=== PATIENT | male | born 1945 | race Caucasian/White ===

== ENCOUNTER 2017-05-12 08:03 | Inpatient (IN) | payer MEDICARE ==
[~2017-05-12] VITALS: Ht 6206.4 cm; Wt 96.8 kg
[~2017-05-12 08:03] MED LIST: ACET-1131 PO; ALB0.5UD IH; ALBU18HF2 INH; ALBU8.5H8 IH; AMLO10TA PO; ARFO15VI3 NEB; ASPI-611 PO; ATR0.5NEB IH; BUDE0.5A11 NEB; CEPH500C5 PO; CHOL2000 PO; DOCU-28 PO; GUAI600T45 PO; LACT10SO PO; LOSA50TA37 PO; MONT10TA21 PO; NITR0.4T48 SL; PANT40TA4 PO; PRED50TA PO
[2017-05-12] MEDS ORDERED: methylPREDNISolone sod succ 125mg/2ml vial IV ONE (08:15)
[2017-05-12] MEDS ORDERED: magnesium 2GM in 50ml NS 50 ML IV ONE (08:15)
[2017-05-12] MEDS ORDERED: normal saline 1000ML IV soln IVB ONE (08:15)
[2017-05-12] MEDS ORDERED: albuterol 2.5 MG/3 ML nebule CONTNEB PRN (08:15)
[2017-05-12 08:27] LABS: BASOPHILS # (AUTO) 0.1 X10'3 (0-0.2); BASOPHILS % (AUTO) 0.7 % (0-1); EOSINOPHILS # (AUTO) 0.6 X10'3 (0-0.9); EOSINOPHILS % (AUTO) 6.1 % (0-6); HEMATOCRIT 38.3 % (42.0-52.0); HEMOGLOBIN 12.7 g/dl (14.0-17.9); LYMPHOCYTES # (AUTO) 1.3 X10'3 (1.1-4.8); LYMPHOCYTES % (AUTO) 13.7 % (21-51); MEAN CORPUSCULAR HEMOGLOBIN 27.9 PG (27.0-31.0); MEAN CORPUSCULAR HGB CONC 33.3 % (33.0-36.5); MEAN CORPUSCULAR VOLUME 83.8 FL (78-98); MONOCYTES % (AUTO) 9.8 % (2-12); NEUTROPHILS # (AUTO) 6.8 X10'3 (1.8-7.7); NEUTROPHILS % (AUTO) 69.7 % (42-75); PLATELET COUNT 341 X10'3 (140-440); RED BLOOD COUNT 4.57 X10'6 (4.70-6.10); RED CELL DISTRIBUTION WIDTH 16.8 % (11.5-14.5); WHITE BLOOD COUNT 9.8 X10'3 (4.5-11.0)
[2017-05-12 08:37] LABS: PARTIAL THROMBOPLASTIN TIME 30 SECONDS (22-32); PROTHROMBIN TIME 9.9 SECONDS (9.0-12.0)
[2017-05-12 08:42] LABS: ALANINE AMINOTRANSFERASE 23 U/L (12-78); ALBUMIN 2.8 G/DL (3.4-5.0); ALBUMIN/GLOBULIN RATIO 0.6 (1.1-1.5); ALKALINE PHOSPHATASE 108 IU/L (46-116); ANION GAP 10 (8-16); ASPARTATE AMINO TRANSFERASE 17 U/L (10-37); BILIRUBIN,TOTAL 0.4 MG/DL (0.1-1.0); BLOOD UREA NITROGEN 12 MG/DL (7-18); BUN/CREATININE RATIO 8.6 (5.4-32.0); CALCIUM 9.2 MG/DL (8.5-10.1); CHLORIDE 107 MMOL/L (99-107); CREATININE 1.39 MG/DL (0.60-1.10); GLUCOSE 100 MG/DL (70-104); POTASSIUM 4.4 MMOL/L (3.5-5.1); SODIUM 142 MMOL/L (135-145); TOTAL CARBON DIOXIDE 24.7 MMOL/L (24-32); TOTAL PROTEIN 7.3 G/DL (6.4-8.2); eGFR 50 ML/MIN
[2017-05-12 09:05] LABS: ABG BASE EXCESS -2.3 mmol/L (-2.0-3.0); ABG HCO3 21.2 mmol/L (22.0-26.0); ABG OXYGEN SATURATION 93.2 % (95-98); ABG PCO2 (T) 32.1 mmHg (35.0-48.0); ABG PH (T) 7.438 (7.350-7.450); ABG PO2 (T) 67.2 mmHg (83-108); ALLEN'S TEST Positive; FCOHb 1.1 % (0.5-1.5); FMetHb 0.3 % (0.3-1.12); FO2Hb 91.9 % (94-100); TOTAL HEMOGLOBIN 10.2 G/dl (14.0-18.0)
[2017-05-12] MEDS ORDERED: furosemide 10 MG/1 ML 10ml inj IV ONE (10:05)
[2017-05-12] MEDS ORDERED: magnesium 2GM in 50ml NS 50 ML IV PRN (11:10)
[2017-05-12] MEDS ORDERED: mag hydrox/Alum hydrox/simeth 30ml oral suspension PO PRN (11:10)
[2017-05-12] MEDS ORDERED: magnesium 4gm in 100ml NS 100 ML IV PRN (11:10)
[2017-05-12] MEDS ORDERED: ondansetron/PF 4mg/2ml inj IV PRN (11:10)
[2017-05-12] MEDS ORDERED: potassium Cl 20 mEq SR tablet PO PRN ×2 (11:10)
[2017-05-12] MEDS ORDERED: acetaminophen 325mg tablet PO PRN (11:10)
[2017-05-12] MEDS ORDERED: magnesium Cl slow-release 64mg tablet PO PRN (11:10)
[2017-05-12] MEDS ORDERED: potassium Cl 40MEQ/NS 500ml 500 ML IV PRN ×2 (11:10)
[2017-05-12] MEDS ORDERED: magnesium hydroxide 30ml (MOM) UD suspension PO PRN (11:10)
[2017-05-12] MEDS ORDERED: ALPRAZolam 0.25mg tablet PO PRN (11:15)
[2017-05-12] MEDS ORDERED: iohexol 350MG/ML 100ml bottle IV ONE (11:43)
[2017-05-12] MEDS: normal saline 1000ml 1,000 ML IV SCH (11:49)
[2017-05-12 17:51] VITALS: BP 157/92
[2017-05-12] MEDS: albuterol 2.5 MG/3 ML nebule NEB PRN (19:32)
[2017-05-12 20:00] VITALS: BP 167/90
[2017-05-12] MEDS ORDERED: temazepam 15mg capsule PO PRN (21:00)
[2017-05-12] MEDS: heparin, porcine 5000 units/ml vial SQ SCH (21:51)
[2017-05-13] VITALS: BP 153/75
[2017-05-13 06:12] LABS: BASOPHILS % (AUTO) 0.1 % (0-1); EOSINOPHILS # (AUTO) 0.2 X10'3 (0-0.9); EOSINOPHILS % (AUTO) 1.5 % (0-6); HEMATOCRIT 36.2 % (42.0-52.0); HEMOGLOBIN 11.9 g/dl (14.0-17.9); LYMPHOCYTES # (AUTO) 0.6 X10'3 (1.1-4.8); LYMPHOCYTES % (AUTO) 5.9 % (21-51); MEAN PLATELET VOLUME 8.6 FL (7.4-10.4); MONOCYTES # (AUTO) 0.6 X10'3 (0-0.9); MONOCYTES % (AUTO) 5.9 % (2-12); NEUTROPHILS # (AUTO) 9.3 X10'3 (1.8-7.7); NEUTROPHILS % (AUTO) 86.6 % (42-75); PLATELET COUNT 334 X10'3 (140-440); RED BLOOD COUNT 4.26 X10'6 (4.70-6.10); RED CELL DISTRIBUTION WIDTH 16.2 % (11.5-14.5); WHITE BLOOD COUNT 10.7 X10'3 (4.5-11.0)
[2017-05-13 06:30] LABS: ALANINE AMINOTRANSFERASE 24 U/L (12-78); ALBUMIN 2.7 G/DL (3.4-5.0); ALBUMIN/GLOBULIN RATIO 0.6 (1.1-1.5); ALKALINE PHOSPHATASE 100 IU/L (46-116); ANION GAP 10 (8-16); ASPARTATE AMINO TRANSFERASE 18 U/L (10-37); BILIRUBIN,TOTAL 0.2 MG/DL (0.1-1.0); BLOOD UREA NITROGEN 30 MG/DL (7-18); BUN/CREATININE RATIO 22.9 (5.4-32.0); CALCIUM 9.3 MG/DL (8.5-10.1); CHLORIDE 102 MMOL/L (99-107); CREATININE 1.31 MG/DL (0.60-1.10); GLUCOSE 130 MG/DL (70-104); MAGNESIUM 2.5 MG/DL (1.5-2.4); POTASSIUM 4.6 MMOL/L (3.5-5.1); SODIUM 138 MMOL/L (135-145); TOTAL CARBON DIOXIDE 26.5 MMOL/L (24-32); eGFR 54 ML/MIN
[2017-05-13] MEDS: albuterol 2.5 MG/3 ML nebule NEB PRN ×3 (06:57→14:39)
[2017-05-13 07:21] VITALS: BP 162/84
[2017-05-13] MEDS: K and/or MAG REPLACEMENT MC SCH (07:48)
[2017-05-13] MEDS: cefTRIAXone 1g/NS 100ml IVPB 100 ML IV SCH (08:00)
[2017-05-13] MEDS ORDERED: methylPREDNISolone sod succ/PF 40mg inj. IV SCH (08:00)
[2017-05-13] MEDS: heparin, porcine 5000 units/ml vial SQ SCH ×2 (08:02→21:00)
[2017-05-13] MEDS: amLODIPine 5mg tablet PO SCH (08:02)
[2017-05-13] MEDS: pantoprazole 40mg Tablet.DR PO SCH (08:02)
[2017-05-13] MEDS: lactobacillus rhamnosus 10,000 MMU CELLS/CAPSULE PO SCH ×2 (08:02→17:22)
[2017-05-13] MEDS: aspirin 81mg tab.chew PO SCH (08:03)
[2017-05-13] MEDS: montelukast 10mg tablet PO SCH (08:03)
[2017-05-13] MEDS: losartan 50mg tablet PO SCH (08:03)
[2017-05-13 12:00] VITALS: BP 147/79
[2017-05-13] MEDS: methylPREDNISolone sod succ/PF 40mg inj. IV SCH ×2 (14:39→21:00)
[2017-05-13] MEDS: normal saline 1000ml 1,000 ML IV SCH ×2 (17:13→22:38)
[2017-05-13 19:30] VITALS: BP 147/79
[2017-05-14] VITALS: BP 147/71
[2017-05-14 05:56] LABS: BASOPHILS % (AUTO) 0.1 % (0-1); EOSINOPHILS # (AUTO) 0.2 X10'3 (0-0.9); EOSINOPHILS % (AUTO) 1.3 % (0-6); HEMATOCRIT 35.7 % (42.0-52.0); HEMOGLOBIN 11.7 g/dl (14.0-17.9); LYMPHOCYTES # (AUTO) 0.5 X10'3 (1.1-4.8); LYMPHOCYTES % (AUTO) 4.1 % (21-51); MEAN CORPUSCULAR HEMOGLOBIN 27.9 PG (27.0-31.0); MEAN CORPUSCULAR HGB CONC 32.8 % (33.0-36.5); MEAN CORPUSCULAR VOLUME 84.9 FL (78-98); MEAN PLATELET VOLUME 8.8 FL (7.4-10.4); MONOCYTES # (AUTO) 0.4 X10'3 (0-0.9); MONOCYTES % (AUTO) 3.2 % (2-12); NEUTROPHILS # (AUTO) 11.5 X10'3 (1.8-7.7); NEUTROPHILS % (AUTO) 91.3 % (42-75); PLATELET COUNT 344 X10'3 (140-440); RED BLOOD COUNT 4.21 X10'6 (4.70-6.10); RED CELL DISTRIBUTION WIDTH 16.3 % (11.5-14.5); WHITE BLOOD COUNT 12.6 X10'3 (4.5-11.0)
[2017-05-14 06:10] LABS: ALANINE AMINOTRANSFERASE 25 U/L (12-78); ALBUMIN 2.7 G/DL (3.4-5.0); ALBUMIN/GLOBULIN RATIO 0.6 (1.1-1.5); ALKALINE PHOSPHATASE 91 IU/L (46-116); ANION GAP 10 (8-16); ASPARTATE AMINO TRANSFERASE 18 U/L (10-37); BILIRUBIN,TOTAL 0.2 MG/DL (0.1-1.0); BLOOD UREA NITROGEN 29 MG/DL (7-18); BUN/CREATININE RATIO 24.2 (5.4-32.0); CHLORIDE 108 MMOL/L (99-107); GLUCOSE 177 MG/DL (70-104); MAGNESIUM 2.4 MG/DL (1.5-2.4); POTASSIUM 4.9 MMOL/L (3.5-5.1); SODIUM 145 MMOL/L (135-145); TOTAL CARBON DIOXIDE 26.6 MMOL/L (24-32); TOTAL PROTEIN 6.9 G/DL (6.4-8.2); eGFR 59 ML/MIN
[2017-05-14] MEDS: cefTRIAXone 1g/NS 100ml IVPB 100 ML IV SCH (07:43)
[2017-05-14] MEDS: methylPREDNISolone sod succ/PF 40mg inj. IV SCH ×3 (07:43→20:38)
[2017-05-14] MEDS: lactobacillus rhamnosus 10,000 MMU CELLS/CAPSULE PO SCH ×2 (07:43→17:31)
[2017-05-14] MEDS: aspirin 81mg tab.chew PO SCH (07:44)
[2017-05-14] MEDS: losartan 50mg tablet PO SCH (07:44)
[2017-05-14] MEDS: amLODIPine 5mg tablet PO SCH (07:45)
[2017-05-14] MEDS: pantoprazole 40mg Tablet.DR PO SCH (07:45)
[2017-05-14] MEDS: montelukast 10mg tablet PO SCH (07:46)
[2017-05-14] MEDS: heparin, porcine 5000 units/ml vial SQ SCH ×2 (07:46→20:38)
[2017-05-14] MEDS: normal saline 1000ml 1,000 ML IV SCH ×2 (07:47→17:32)
[2017-05-14 08:00] VITALS: BP 157/91
[2017-05-14] MEDS: K and/or MAG REPLACEMENT MC SCH (08:00)
[2017-05-14] MEDS: albuterol 2.5 MG/3 ML nebule NEB PRN (08:17)
[2017-05-14 12:00] VITALS: BP 149/81
[2017-05-14] MEDS ORDERED: albuterol 2.5 MG/3 ML nebule NEB SCH (18:35)
[2017-05-14] MEDS ORDERED: acetaminophen 325mg tablet PO PRN (18:40)
[2017-05-14 19:30] VITALS: BP 177/101
[2017-05-15] VITALS: BP 151/83
[2017-05-15] MEDS: normal saline 1000ml 1,000 ML IV SCH ×2 (03:48→19:13)
[2017-05-15 04:58] LABS: BASOPHILS % (AUTO) 0 % (0-1); EOSINOPHILS # (AUTO) 0.2 X10'3 (0-0.9); EOSINOPHILS % (AUTO) 1.3 % (0-6); HEMATOCRIT 35.5 % (42.0-52.0); HEMOGLOBIN 11.7 g/dl (14.0-17.9); LYMPHOCYTES # (AUTO) 0.5 X10'3 (1.1-4.8); LYMPHOCYTES % (AUTO) 3.7 % (21-51); MEAN CORPUSCULAR HEMOGLOBIN 27.9 PG (27.0-31.0); MEAN CORPUSCULAR HGB CONC 32.8 % (33.0-36.5); MEAN CORPUSCULAR VOLUME 84.9 FL (78-98); MEAN PLATELET VOLUME 8.8 FL (7.4-10.4); MONOCYTES # (AUTO) 0.5 X10'3 (0-0.9); MONOCYTES % (AUTO) 3.4 % (2-12); NEUTROPHILS # (AUTO) 12.4 X10'3 (1.8-7.7); NEUTROPHILS % (AUTO) 91.6 % (42-75); PLATELET COUNT 319 X10'3 (140-440); RED BLOOD COUNT 4.18 X10'6 (4.70-6.10); RED CELL DISTRIBUTION WIDTH 16.2 % (11.5-14.5); WHITE BLOOD COUNT 13.5 X10'3 (4.5-11.0)
[2017-05-15 05:19] LABS: ALANINE AMINOTRANSFERASE 29 U/L (12-78); ALBUMIN 2.6 G/DL (3.4-5.0); ALBUMIN/GLOBULIN RATIO 0.7 (1.1-1.5); ALKALINE PHOSPHATASE 84 IU/L (46-116); ANION GAP 13 (8-16); ASPARTATE AMINO TRANSFERASE 17 U/L (10-37); BILIRUBIN,TOTAL 0.2 MG/DL (0.1-1.0); BLOOD UREA NITROGEN 34 MG/DL (7-18); BUN/CREATININE RATIO 32.1 (5.4-32.0); CALCIUM 8.9 MG/DL (8.5-10.1); CHLORIDE 106 MMOL/L (99-107); CREATININE 1.06 MG/DL (0.60-1.10); GLUCOSE 131 MG/DL (70-104); MAGNESIUM 2.3 MG/DL (1.5-2.4); POTASSIUM 4.4 MMOL/L (3.5-5.1); SODIUM 142 MMOL/L (135-145); TOTAL CARBON DIOXIDE 23.4 MMOL/L (24-32); TOTAL PROTEIN 6.6 G/DL (6.4-8.2); eGFR 68 ML/MIN
[2017-05-15 07:00] VITALS: BP 183/104
[2017-05-15] MEDS: K and/or MAG REPLACEMENT MC SCH (07:35)
[2017-05-15] MEDS: lactobacillus rhamnosus 10,000 MMU CELLS/CAPSULE PO SCH ×2 (07:36→17:54)
[2017-05-15] MEDS: HYDROchlorothiazide 12.5mg capsule PO SCH (07:36)
[2017-05-15] MEDS: pantoprazole 40mg Tablet.DR PO SCH (07:36)
[2017-05-15] MEDS: montelukast 10mg tablet PO SCH (07:36)
[2017-05-15] MEDS: aspirin 81mg tab.chew PO SCH (07:37)
[2017-05-15] MEDS: amLODIPine 5mg tablet PO SCH (07:37)
[2017-05-15] MEDS: losartan 50mg tablet PO SCH (07:52)
[2017-05-15] MEDS: methylPREDNISolone sod succ/PF 40mg inj. IV SCH ×3 (07:52→20:48)
[2017-05-15] MEDS: heparin, porcine 5000 units/ml vial SQ SCH ×2 (07:53→20:49)
[2017-05-15] MEDS: albuterol 2.5 MG/3 ML nebule NEB SCH ×5 (07:56→22:37)
[2017-05-15] MEDS: cefTRIAXone 1g/NS 100ml IVPB 100 ML IV SCH (09:00)
[2017-05-15 12:19] VITALS: BP 147/81
[2017-05-15 19:48] VITALS: BP 161/92
[2017-05-16] MEDS: normal saline 1000ml 1,000 ML IV SCH (00:56)
[2017-05-16] MEDS: albuterol 2.5 MG/3 ML nebule NEB SCH ×3 (02:43→11:33)
[2017-05-16 03:05] VITALS: BP 150/76
[2017-05-16 06:07] LABS: BASOPHILS % (AUTO) 0.2 % (0-1); EOSINOPHILS # (AUTO) 0.2 X10'3 (0-0.9); EOSINOPHILS % (AUTO) 1.7 % (0-6); HEMATOCRIT 35.4 % (42.0-52.0); HEMOGLOBIN 11.5 g/dl (14.0-17.9); LYMPHOCYTES # (AUTO) 0.3 X10'3 (1.1-4.8); LYMPHOCYTES % (AUTO) 2.8 % (21-51); MEAN CORPUSCULAR HEMOGLOBIN 27.7 PG (27.0-31.0); MEAN CORPUSCULAR HGB CONC 32.4 % (33.0-36.5); MEAN CORPUSCULAR VOLUME 85.3 FL (78-98); MEAN PLATELET VOLUME 8.7 FL (7.4-10.4); MONOCYTES # (AUTO) 0.7 X10'3 (0-0.9); MONOCYTES % (AUTO) 5.9 % (2-12); NEUTROPHILS # (AUTO) 10.3 X10'3 (1.8-7.7); NEUTROPHILS % (AUTO) 89.4 % (42-75); PLATELET COUNT 289 X10'3 (140-440); RED BLOOD COUNT 4.15 X10'6 (4.70-6.10); RED CELL DISTRIBUTION WIDTH 16.3 % (11.5-14.5); WHITE BLOOD COUNT 11.6 X10'3 (4.5-11.0)
[2017-05-16 07:00] VITALS: BP 163/96
[2017-05-16 07:05] LABS: ALANINE AMINOTRANSFERASE 30 U/L (12-78); ALBUMIN 2.4 G/DL (3.4-5.0); ALBUMIN/GLOBULIN RATIO 0.6 (1.1-1.5); ALKALINE PHOSPHATASE 77 IU/L (46-116); ANION GAP 10 (8-16); ASPARTATE AMINO TRANSFERASE 15 U/L (10-37); BILIRUBIN,TOTAL 0.2 MG/DL (0.1-1.0); BLOOD UREA NITROGEN 34 MG/DL (7-18); BUN/CREATININE RATIO 27.6 (5.4-32.0); CALCIUM 8.6 MG/DL (8.5-10.1); CHLORIDE 107 MMOL/L (99-107); CREATININE 1.23 MG/DL (0.60-1.10); GLUCOSE 153 MG/DL (70-104); MAGNESIUM 2.3 MG/DL (1.5-2.4); POTASSIUM 4.3 MMOL/L (3.5-5.1); SODIUM 143 MMOL/L (135-145); TOTAL CARBON DIOXIDE 25.7 MMOL/L (24-32); TOTAL PROTEIN 6.2 G/DL (6.4-8.2); eGFR 58 ML/MIN
[2017-05-16] MEDS: K and/or MAG REPLACEMENT MC SCH (07:41)
[2017-05-16] MEDS: losartan 50mg tablet PO SCH (07:54)
[2017-05-16] MEDS: lactobacillus rhamnosus 10,000 MMU CELLS/CAPSULE PO SCH (07:54)
[2017-05-16] MEDS: heparin, porcine 5000 units/ml vial SQ SCH (07:54)
[2017-05-16] MEDS: amLODIPine 5mg tablet PO SCH (07:54)
[2017-05-16] MEDS: pantoprazole 40mg Tablet.DR PO SCH (07:54)
[2017-05-16] MEDS: HYDROchlorothiazide 12.5mg capsule PO SCH (07:54)
[2017-05-16] MEDS: aspirin 81mg tab.chew PO SCH (07:54)
[2017-05-16] MEDS: montelukast 10mg tablet PO SCH (07:54)
[2017-05-16] MEDS: cefTRIAXone 1g/NS 100ml IVPB 100 ML IV SCH (07:55)
[2017-05-16] MEDS: methylPREDNISolone sod succ/PF 40mg inj. IV SCH (07:55)
[2017-05-16] MEDS ORDERED: ALPRAZolam 0.5mg tablet PO PRN (12:50)
== END 2017-05-16 13:05 | disposition home or self-care (01) | DRG 189 ==
LOC: ER 08:04 → ED HOLD 10:35 → MED 3N 13:42
PROVIDERS: ADMIT Internal Medicine; ATTEND Family Medicine
PROC: B32T1ZZ Computerized Tomography (CT Scan) of Left Pulmonary Artery using Low Osmolar Contrast (ICD-10-PCS; principal; 2017-05-12)
PROC: B3201ZZ Computerized Tomography (CT Scan) of Thoracic Aorta using Low Osmolar Contrast (ICD-10-PCS; 2017-05-12)
PROC: B32S1ZZ Computerized Tomography (CT Scan) of Right Pulmonary Artery using Low Osmolar Contrast (ICD-10-PCS; 2017-05-12)
PROC: BW241ZZ Computerized Tomography (CT Scan) of Chest and Abdomen using Low Osmolar Contrast (ICD-10-PCS; 2017-05-12)
DX: J96.20 Acute and chronic respiratory failure, unspecified whether with hypoxia or hypercapnia (principal); E44.0 Moderate protein-calorie malnutrition; Z99.81 Dependence on supplemental oxygen; J44.1 Chronic obstructive pulmonary disease with (acute) exacerbation; F41.9 Anxiety disorder, unspecified; E78.00 Pure hypercholesterolemia, unspecified; E78.5 Hyperlipidemia, unspecified; I10 Essential (primary) hypertension; G89.29 Other chronic pain; M54.9 Dorsalgia, unspecified; Z77.090 Contact with and (suspected) exposure to asbestos; Z79.52 Long term (current) use of systemic steroids; Z79.82 Long term (current) use of aspirin; Z79.899 Other long term (current) drug therapy; Z87.891 Personal history of nicotine dependence
CPT/HCPCS: 36415; 36600; 71010; 71275; 80053; 82803; 83605; 83735; 83880; 84484; 85018; 85025; 85610; 85730; 87040; 87070; 93306; 94640; 94760; 96365; 96366; 96375; 99285; J0696; J1644; J1940; J2920; J2930; J3475; J7030; Q9967

== ENCOUNTER 2017-06-09 10:27 | Emergency (ER) | payer MEDICARE ==
[~2017-06-09] VITALS: Ht 188 cm; Wt 96.2 kg
[~2017-06-09 10:27] MED LIST changes: -ALBU18HF2 INH; -ALBU8.5H8 IH; -CEPH500C5 PO; -DOCU-28 PO; -GUAI600T45 PO; -LACT10SO PO; -NITR0.4T48 SL
[2017-06-09] MEDS ORDERED: methylPREDNISolone sod succ 125mg/2ml vial IV ONE (11:00)
[2017-06-09] MEDS ORDERED: ipratropium/albuterol 3ml nebule NEB ONE (11:00)
[2017-06-09 11:35] LABS: BASOPHILS # (AUTO) 0.1 X10'3 (0-0.2); BASOPHILS % (AUTO) 0.5 % (0-1); EOSINOPHILS # (AUTO) 0.4 X10'3 (0-0.9); EOSINOPHILS % (AUTO) 3.3 % (0-6); HEMATOCRIT 35.7 % (42.0-52.0); LYMPHOCYTES # (AUTO) 0.5 X10'3 (1.1-4.8); LYMPHOCYTES % (AUTO) 4.5 % (21-51); MEAN CORPUSCULAR HEMOGLOBIN 28.4 PG (27.0-31.0); MEAN CORPUSCULAR HGB CONC 33.6 % (33.0-36.5); MEAN CORPUSCULAR VOLUME 84.4 FL (78-98); MEAN PLATELET VOLUME 9.1 FL (7.4-10.4); MONOCYTES # (AUTO) 0.3 X10'3 (0-0.9); MONOCYTES % (AUTO) 2.6 % (2-12); NEUTROPHILS # (AUTO) 10.6 X10'3 (1.8-7.7); NEUTROPHILS % (AUTO) 89.1 % (42-75); PLATELET COUNT 314 X10'3 (140-440); RED BLOOD COUNT 4.22 X10'6 (4.70-6.10); WHITE BLOOD COUNT 11.9 X10'3 (4.5-11.0)
[2017-06-09 11:44] LABS: INR 0.9 INR; PARTIAL THROMBOPLASTIN TIME 27 SECONDS (22-32); PROTHROMBIN TIME 9.6 SECONDS (9.0-12.0)
[2017-06-09 11:53] LABS: ALANINE AMINOTRANSFERASE 24 U/L (12-78); ALBUMIN 2.9 G/DL (3.4-5.0); ALBUMIN/GLOBULIN RATIO 0.7 (1.1-1.5); ALKALINE PHOSPHATASE 80 IU/L (46-116); ANION GAP 10 (8-16); ASPARTATE AMINO TRANSFERASE 16 U/L (10-37); BILIRUBIN,TOTAL 0.5 MG/DL (0.1-1.0); BLOOD UREA NITROGEN 23 MG/DL (7-18); BUN/CREATININE RATIO 17.7 (5.4-32.0); CALCIUM 8.9 MG/DL (8.5-10.1); CHLORIDE 106 MMOL/L (99-107); GLUCOSE 107 MG/DL (70-104); POTASSIUM 4.4 MMOL/L (3.5-5.1); SODIUM 141 MMOL/L (135-145); TOTAL CARBON DIOXIDE 25.4 MMOL/L (24-32); TROPONIN I < 0.04 NG/ML (0.0-0.05); eGFR 54 ML/MIN
[2017-06-09] MEDS ORDERED: PRED10TA23 PO (12:29)
[2017-06-09] MEDS ORDERED: AZIT250T PO (12:29)
[2017-06-09 12:39] VITALS: BP 135/72
== END 2017-06-09 12:48 | disposition home or self-care (01) ==
LOC: ER 10:28
DX: J44.1 Chronic obstructive pulmonary disease with (acute) exacerbation (principal); E78.00 Pure hypercholesterolemia, unspecified; I10 Essential (primary) hypertension; G89.29 Other chronic pain; Z87.891 Personal history of nicotine dependence; Z79.82 Long term (current) use of aspirin
CPT/HCPCS: 36415; 71045; 80053; 83605; 84145; 84484; 85025; 85610; 85730; 87040; 94640; 94760; 96374; 99285; J2930

== ENCOUNTER 2017-06-22 06:16 | Inpatient (IN) | payer MEDICARE ==
[~2017-06-22] VITALS: Ht 188 cm; Wt 93.3 kg
[~2017-06-22 06:16] MED LIST changes: +PRED10TA23 PO
[2017-06-22] MEDS ORDERED: levoFLOXACIN-Levaquin 750MG/D5 150 ML IV ONE (06:25)
[2017-06-22] MEDS ORDERED: ipratropium/albuterol 3ml nebule NEB ONE (06:25)
[2017-06-22] MEDS ORDERED: methylPREDNISolone sod succ 125mg/2ml vial IV ONE (06:25)
[2017-06-22] MEDS ORDERED: magnesium 2GM in 50ml NS 50 ML IV ONE (06:25)
[2017-06-22] MEDS ORDERED: glycopyrrolate 0.2mg/ml inj IV ONE (06:35)
[2017-06-22 06:49] LABS: BASOPHILS # (AUTO) 0.1 X10'3 (0-0.2); BASOPHILS % (AUTO) 0.8 % (0-1); EOSINOPHILS # (AUTO) 0.9 X10'3 (0-0.9); EOSINOPHILS % (AUTO) 6.8 % (0-6); HEMATOCRIT 38.4 % (42.0-52.0); HEMOGLOBIN 13.1 g/dl (14.0-17.9); LYMPHOCYTES # (AUTO) 1.4 X10'3 (1.1-4.8); LYMPHOCYTES % (AUTO) 10.1 % (21-51); MEAN CORPUSCULAR HEMOGLOBIN 28.2 PG (27.0-31.0); MEAN CORPUSCULAR HGB CONC 34.1 % (33.0-36.5); MEAN CORPUSCULAR VOLUME 82.7 FL (78-98); MEAN PLATELET VOLUME 8.3 FL (7.4-10.4); MONOCYTES # (AUTO) 0.8 X10'3 (0-0.9); MONOCYTES % (AUTO) 5.8 % (2-12); NEUTROPHILS # (AUTO) 10.3 X10'3 (1.8-7.7); NEUTROPHILS % (AUTO) 76.5 % (42-75); PLATELET COUNT 360 X10'3 (140-440); RED BLOOD COUNT 4.65 X10'6 (4.70-6.10); RED CELL DISTRIBUTION WIDTH 16.4 % (11.5-14.5); WHITE BLOOD COUNT 13.4 X10'3 (4.5-11.0)
[2017-06-22 07:00] LABS: INR 0.9 INR; PARTIAL THROMBOPLASTIN TIME 26 SECONDS (22-32); PROTHROMBIN TIME 9.7 SECONDS (9.0-12.0)
[2017-06-22 07:14] LABS: ALANINE AMINOTRANSFERASE 24 U/L (12-78); ALBUMIN/GLOBULIN RATIO 0.7 (1.1-1.5); ALKALINE PHOSPHATASE 98 IU/L (46-116); ANION GAP 11 (8-16); ASPARTATE AMINO TRANSFERASE 14 U/L (10-37); BILIRUBIN,TOTAL 0.4 MG/DL (0.1-1.0); BLOOD UREA NITROGEN 14 MG/DL (7-18); BUN/CREATININE RATIO 10.9 (5.4-32.0); CALCIUM 9.1 MG/DL (8.5-10.1); CHLORIDE 105 MMOL/L (99-107); CREATININE 1.29 MG/DL (0.60-1.10); GLUCOSE 89 MG/DL (70-104); MAGNESIUM 2.1 MG/DL (1.5-2.4); POTASSIUM 4.4 MMOL/L (3.5-5.1); SODIUM 144 MMOL/L (135-145); TOTAL CARBON DIOXIDE 28.5 MMOL/L (24-32); TOTAL PROTEIN 7.3 G/DL (6.4-8.2); eGFR 55 ML/MIN
[2017-06-22 08:08] LABS: CLARITY,URINE CLEAR (Clear); COLOR,URINE YELLOW (Yellow); GLUCOSE, URINE NEGATIVE (Neg); KETONES,URINE NEGATIVE (Neg); LEUKOCYTE ESTERASE ,URINE NEGATIVE (Neg); NITRITES, URINE NEGATIVE (Neg); OCCULT BLOOD,URINE NEGATIVE (Neg); PROTEIN,URINE 30 mg/dl (Neg); UROBILINOGEN,URINE 0.2 E.U/dL (0.2-1.0)
[2017-06-22 08:09] LABS: UA COLLECTION TYPE CLN CATCH MIDSTREAM
[2017-06-22 08:13] LABS: MUCUS STRANDS FEW /LPF (Neg); SQUAMOUS EPITHELIAL CELL,UR FEW /LPF (FEW)
[2017-06-22 08:14] LABS: BACTERIA,URINE FEW /HPF (Neg); RBC,URINE 0-2 /HPF (0-2); WBC,URINE 0-4 /HPF (0-4)
[2017-06-22] MEDS ORDERED: albuterol 2.5 MG/3 ML nebule NEB PRN (09:45)
[2017-06-22] MEDS ORDERED: normal saline 1000ml 1,000 ML IV SCH (09:47)
[2017-06-22] MEDS ORDERED: magnesium hydroxide 30ml (MOM) UD suspension PO PRN (09:50)
[2017-06-22] MEDS ORDERED: potassium Cl 40MEQ/NS 500ml 500 ML IV PRN ×2 (09:50)
[2017-06-22] MEDS ORDERED: magnesium 2GM in 50ml NS 50 ML IV PRN (09:50)
[2017-06-22] MEDS ORDERED: magnesium 4gm in 100ml NS 100 ML IV PRN (09:50)
[2017-06-22] MEDS ORDERED: magnesium Cl slow-release 64mg tablet PO PRN (09:50)
[2017-06-22] MEDS ORDERED: acetaminophen 325mg tablet PO PRN ×2 (09:50)
[2017-06-22] MEDS ORDERED: mag hydrox/Alum hydrox/simeth 30ml oral suspension PO PRN (09:50)
[2017-06-22] MEDS ORDERED: ondansetron/PF 4mg/2ml inj IV PRN (09:50)
[2017-06-22] MEDS ORDERED: potassium Cl 20 mEq SR tablet PO PRN ×2 (09:50)
[2017-06-22 12:20] VITALS: BP 144/87
[2017-06-22] MEDS: albuterol 2.5 MG/3 ML nebule NEB SCH ×2 (14:13→19:44)
[2017-06-22] MEDS: budesonide 0.5mg/2ml UD nebule IH SCH (19:44)
[2017-06-22] MEDS: docusate sod 100mg capsule PO SCH (19:59)
[2017-06-22 20:00] VITALS: BP 152/84
[2017-06-22] MEDS: ARFORMOTEROL TARTRATE IH SCH (20:00)
[2017-06-22] MEDS: heparin, porcine 5000 units/ml vial SQ SCH (20:01)
[2017-06-23] VITALS: BP 139/77
[2017-06-23] MEDS: albuterol 2.5 MG/3 ML nebule NEB SCH ×4 (01:30→20:13)
[2017-06-23 05:42] LABS: BASOPHILS % (AUTO) 0.1 % (0-1); EOSINOPHILS # (AUTO) 0.3 X10'3 (0-0.9); EOSINOPHILS % (AUTO) 1.6 % (0-6); HEMATOCRIT 37.1 % (42.0-52.0); HEMOGLOBIN 12.6 g/dl (14.0-17.9); LYMPHOCYTES # (AUTO) 0.6 X10'3 (1.1-4.8); LYMPHOCYTES % (AUTO) 3.7 % (21-51); MEAN CORPUSCULAR HEMOGLOBIN 28.3 PG (27.0-31.0); MEAN CORPUSCULAR HGB CONC 33.8 % (33.0-36.5); MEAN CORPUSCULAR VOLUME 83.7 FL (78-98); MONOCYTES # (AUTO) 0.6 X10'3 (0-0.9); MONOCYTES % (AUTO) 3.9 % (2-12); NEUTROPHILS # (AUTO) 14.2 X10'3 (1.8-7.7); NEUTROPHILS % (AUTO) 90.7 % (42-75); PLATELET COUNT 328 X10'3 (140-440); RED BLOOD COUNT 4.44 X10'6 (4.70-6.10); RED CELL DISTRIBUTION WIDTH 15.8 % (11.5-14.5); WHITE BLOOD COUNT 15.6 X10'3 (4.5-11.0)
[2017-06-23 06:20] LABS: ALBUMIN 2.8 G/DL (3.4-5.0); ANION GAP 13 (8-16); BLOOD UREA NITROGEN 36 MG/DL (7-18); BUN/CREATININE RATIO 23.2 (5.4-32.0); CALCIUM 9.6 MG/DL (8.5-10.1); CHLORIDE 102 MMOL/L (99-107); CREATININE 1.55 MG/DL (0.60-1.10); GLUCOSE 135 MG/DL (70-104); MAGNESIUM 2.6 MG/DL (1.5-2.4); POTASSIUM 4.9 MMOL/L (3.5-5.1); SODIUM 141 MMOL/L (135-145); TOTAL CARBON DIOXIDE 26.5 MMOL/L (24-32); eGFR 44 ML/MIN
[2017-06-23 07:00] VITALS: BP 155/87
[2017-06-23] MEDS: pantoprazole 40mg Tablet.DR PO SCH ×2 (07:02→07:44)
[2017-06-23] MEDS: K and/or MAG REPLACEMENT MC SCH (07:03)
[2017-06-23] MEDS: losartan 50mg tablet PO SCH (07:44)
[2017-06-23] MEDS: montelukast 10mg tablet PO SCH (07:44)
[2017-06-23] MEDS: docusate sod 100mg capsule PO SCH ×2 (07:44→19:54)
[2017-06-23] MEDS: amLODIPine 5mg tablet PO SCH (07:44)
[2017-06-23] MEDS: heparin, porcine 5000 units/ml vial SQ SCH ×2 (07:45→19:28)
[2017-06-23] MEDS: ARFORMOTEROL TARTRATE IH SCH ×2 (08:00→20:36)
[2017-06-23] MEDS ORDERED: aspirin 81mg tab.chew PO SCH (08:00)
[2017-06-23] MEDS ORDERED: methylPREDNISolone sod succ 125mg/2ml vial IV SCH (08:00)
[2017-06-23] MEDS: budesonide 0.5mg/2ml UD nebule IH SCH ×2 (09:01→20:13)
[2017-06-23 10:46] LABS: ABG BASE EXCESS -0.7 mmol/L (-2.0-3.0); ABG HCO3 22.7 mmol/L (22.0-26.0); ABG OXYGEN SATURATION 97.4 % (95-98); ABG PCO2 (T) 33.3 mmHg (35.0-48.0); ABG PH (T) 7.451 (7.350-7.450); ABG PO2 (T) 95.6 mmHg (83-108); ALLEN'S TEST Positive; FLOW 2 L/min; FMetHb 0.3 % (0.3-1.12); FO2Hb 97.1 % (94-100); TOTAL HEMOGLOBIN 12.2 G/dl (14.0-18.0)
[2017-06-23 11:00] VITALS: BP 137/74
[2017-06-23 20:00] VITALS: BP 140/76
[2017-06-23] MEDS: loratadine/pseudoephedrine TAB.SR.12Hour PO SCH (22:20)
[2017-06-23 23:46] VITALS: BP 141/71
[2017-06-24] MEDS: albuterol 2.5 MG/3 ML nebule NEB SCH ×2 (02:23→09:18)
[2017-06-24 05:20] LABS: BASOPHILS % (AUTO) 0.1 % (0-1); EOSINOPHILS # (AUTO) 0.3 X10'3 (0-0.9); EOSINOPHILS % (AUTO) 1.7 % (0-6); HEMATOCRIT 37.4 % (42.0-52.0); HEMOGLOBIN 12.6 g/dl (14.0-17.9); LYMPHOCYTES # (AUTO) 0.6 X10'3 (1.1-4.8); LYMPHOCYTES % (AUTO) 3.6 % (21-51); MEAN CORPUSCULAR HEMOGLOBIN 28.3 PG (27.0-31.0); MEAN CORPUSCULAR HGB CONC 33.7 % (33.0-36.5); MONOCYTES # (AUTO) 0.9 X10'3 (0-0.9); MONOCYTES % (AUTO) 4.9 % (2-12); NEUTROPHILS # (AUTO) 15.7 X10'3 (1.8-7.7); NEUTROPHILS % (AUTO) 89.7 % (42-75); PLATELET COUNT 371 X10'3 (140-440); RED BLOOD COUNT 4.45 X10'6 (4.70-6.10); RED CELL DISTRIBUTION WIDTH 16.1 % (11.5-14.5); WHITE BLOOD COUNT 17.5 X10'3 (4.5-11.0)
[2017-06-24 06:00] LABS: ALBUMIN 3.1 G/DL (3.4-5.0); ANION GAP 14 (8-16); BLOOD UREA NITROGEN 39 MG/DL (7-18); BUN/CREATININE RATIO 27.9 (5.4-32.0); CALCIUM 9.3 MG/DL (8.5-10.1); CHLORIDE 100 MMOL/L (99-107); GLUCOSE 107 MG/DL (70-104); MAGNESIUM 2.5 MG/DL (1.5-2.4); POTASSIUM 4.2 MMOL/L (3.5-5.1); SODIUM 139 MMOL/L (135-145); TOTAL CARBON DIOXIDE 25.1 MMOL/L (24-32); eGFR 50 ML/MIN
[2017-06-24] MEDS: pantoprazole 40mg Tablet.DR PO SCH ×2 (07:30→08:09)
[2017-06-24 07:53] VITALS: BP 142/79
[2017-06-24] MEDS: loratadine/pseudoephedrine TAB.SR.12Hour PO SCH (08:00)
[2017-06-24] MEDS: K and/or MAG REPLACEMENT MC SCH (08:00)
[2017-06-24] MEDS ORDERED: levoFLOXACIN 500mg tablet PO SCH (08:00)
[2017-06-24] MEDS: docusate sod 100mg capsule PO SCH (08:00)
[2017-06-24] MEDS ORDERED: methylPREDNISolone sod succ/PF 40mg inj. IV SCH (08:00)
[2017-06-24] MEDS ORDERED: sertraline 25mg tablet PO SCH (08:00)
[2017-06-24] MEDS ORDERED: aspirin 81mg tab.chew PO SCH (08:04)
[2017-06-24] MEDS: montelukast 10mg tablet PO SCH (08:09)
[2017-06-24] MEDS: losartan 50mg tablet PO SCH (08:09)
[2017-06-24] MEDS: amLODIPine 5mg tablet PO SCH (08:09)
[2017-06-24] MEDS: heparin, porcine 5000 units/ml vial SQ SCH (08:14)
[2017-06-24] MEDS: budesonide 0.5mg/2ml UD nebule IH SCH (09:18)
[2017-06-24] MEDS ORDERED: DOXY100C2 PO (10:59)
== END 2017-06-24 11:44 | disposition home or self-care (01) | DRG 191 ==
LOC: ER 06:17 → ED HOLD 09:47 → SUR 3N 12:00
PROVIDERS: ADMIT Internal Medicine; ATTEND Family Medicine
DX: J44.0 Chronic obstructive pulmonary disease with (acute) lower respiratory infection (principal); R65.10 Systemic inflammatory response syndrome (SIRS) of non-infectious origin without acute organ dysfunction; E78.00 Pure hypercholesterolemia, unspecified; J44.1 Chronic obstructive pulmonary disease with (acute) exacerbation; E78.5 Hyperlipidemia, unspecified; G89.29 Other chronic pain; J40 Bronchitis, not specified as acute or chronic; M54.9 Dorsalgia, unspecified; F41.9 Anxiety disorder, unspecified; I10 Essential (primary) hypertension; Z79.82 Long term (current) use of aspirin; Z79.52 Long term (current) use of systemic steroids; Z87.891 Personal history of nicotine dependence
CPT/HCPCS: 36415; 36600; 71045; 71250; 80048; 80053; 81001; 82803; 83605; 83735; 83880; 84145; 84484; 85018; 85025; 85610; 85730; 87040; 87070; 93005; 93308; 94640; 94760; 96365; 96375; 97116; 97530; 99285; J1644; J1956; J2920; J2930; J3475; J3490; J7030; J7626

== ENCOUNTER 2017-07-09 15:46 | Inpatient (IN) | payer MEDICARE ==
[~2017-07-09] VITALS: Ht 180.3 cm; Wt 96.4 kg
[~2017-07-09 15:46] MED LIST changes: +DOXY100C2 PO; -PRED10TA23 PO
[2017-07-09] MEDS ORDERED: normal saline 1000ML IV soln IVB ONE (16:00)
[2017-07-09] MEDS ORDERED: methylPREDNISolone sod succ 125mg/2ml vial IV ONE (16:00)
[2017-07-09] MEDS: albuterol 2.5 MG/3 ML nebule NEB ONE ×2 (16:00→20:29)
[2017-07-09] MEDS ORDERED: ipratropium/albuterol 3ml nebule NEB ONE (16:00)
[2017-07-09 16:21] LABS: ABG BASE EXCESS 0.4 mmol/L (-2.0-3.0); ABG HCO3 24.6 mmol/L (22.0-26.0); ABG OXYGEN SATURATION 95.2 % (95-98); ABG PCO2 (T) 38.3 mmHg (35.0-48.0); ABG PH (T) 7.425 (7.350-7.450); ABG PO2 (T) 73.8 mmHg (83-108); FCOHb 1.7 % (0.5-1.5); FLOW 2 L/min; FMetHb 0.3 % (0.3-1.12); FO2Hb 93.3 % (94-100); TOTAL HEMOGLOBIN 13.7 G/dl (14.0-18.0)
[2017-07-09 16:22] LABS: BASOPHILS % (AUTO) 0.4 % (0-1); EOSINOPHILS # (AUTO) 1.4 X10'3 (0-0.9); EOSINOPHILS % (AUTO) 12.9 % (0-6); HEMATOCRIT 40.6 % (42.0-52.0); HEMOGLOBIN 13.4 g/dl (14.0-17.9); LYMPHOCYTES # (AUTO) 1.6 X10'3 (1.1-4.8); LYMPHOCYTES % (AUTO) 14.6 % (21-51); MEAN CORPUSCULAR HEMOGLOBIN 27.5 PG (27.0-31.0); MEAN CORPUSCULAR HGB CONC 32.9 % (33.0-36.5); MEAN CORPUSCULAR VOLUME 83.7 FL (78-98); MEAN PLATELET VOLUME 8.9 FL (7.4-10.4); MONOCYTES # (AUTO) 0.7 X10'3 (0-0.9); MONOCYTES % (AUTO) 6.6 % (2-12); NEUTROPHILS # (AUTO) 7.4 X10'3 (1.8-7.7); NEUTROPHILS % (AUTO) 65.5 % (42-75); PLATELET COUNT 332 X10'3 (140-440); RED BLOOD COUNT 4.85 X10'6 (4.70-6.10); WHITE BLOOD COUNT 11.3 X10'3 (4.5-11.0)
[2017-07-09 16:38] LABS: INR 0.9 INR; PARTIAL THROMBOPLASTIN TIME 23 SECONDS (22-32); PROTHROMBIN TIME 9.5 SECONDS (9.0-12.0)
[2017-07-09 16:53] LABS: ALANINE AMINOTRANSFERASE 27 U/L (12-78); ALBUMIN 2.9 G/DL (3.4-5.0); ALBUMIN/GLOBULIN RATIO 0.6 (1.1-1.5); ALKALINE PHOSPHATASE 106 IU/L (46-116); ANION GAP 13 (8-16); ASPARTATE AMINO TRANSFERASE 23 U/L (10-37); BILIRUBIN,TOTAL 0.4 MG/DL (0.1-1.0); BLOOD UREA NITROGEN 21 MG/DL (7-18); BUN/CREATININE RATIO 14.3 (5.4-32.0); CALCIUM 9.3 MG/DL (8.5-10.1); CHLORIDE 103 MMOL/L (99-107); CREATININE 1.47 MG/DL (0.60-1.10); GLUCOSE 107 MG/DL (70-104); POTASSIUM 4.7 MMOL/L (3.5-5.1); SODIUM 139 MMOL/L (135-145); TOTAL CARBON DIOXIDE 23.5 MMOL/L (24-32); TOTAL PROTEIN 7.4 G/DL (6.4-8.2); eGFR 47 ML/MIN
[2017-07-09] MEDS ORDERED: ipratropium 0.5 MG/2.5ML nebule IH PRN (20:45)
[2017-07-09] MEDS ORDERED: magnesium 2GM in 50ml NS 50 ML IV ONE (20:45)
[2017-07-09] MEDS ORDERED: normal saline 500ml IV soln 500 ML IV ONE (20:45)
[2017-07-09] MEDS ORDERED: magnesium hydroxide 30ml (MOM) UD suspension PO PRN (20:50)
[2017-07-09] MEDS ORDERED: mag hydrox/Alum hydrox/simeth 30ml oral suspension PO PRN (20:50)
[2017-07-09] MEDS ORDERED: ondansetron/PF 4mg/2ml inj IV PRN (20:50)
[2017-07-09] MEDS ORDERED: acetaminophen 325mg tablet PO PRN ×3 (20:50→21:00)
[2017-07-09] MEDS ORDERED: albuterol 2.5 MG/3 ML nebule NEB PRN (20:55)
[2017-07-09] MEDS ORDERED: morphine 2 MG/ML inj. syringe IV PRN (20:55)
[2017-07-09] MEDS: normal saline 1000ml 1,000 ML IV SCH (21:03)
[2017-07-09 22:30] VITALS: BP 167/74
[2017-07-10] MEDS: methylPREDNISolone sod succ 125mg/2ml vial IV SCH ×4 (01:59→21:32)
[2017-07-10 03:00] VITALS: BP 135/90
[2017-07-10 05:57] LABS: BASOPHILS % (AUTO) 0 % (0-1); EOSINOPHILS # (AUTO) 0.1 X10'3 (0-0.9); EOSINOPHILS % (AUTO) 1.4 % (0-6); HEMATOCRIT 37.9 % (42.0-52.0); HEMOGLOBIN 12.9 g/dl (14.0-17.9); LYMPHOCYTES # (AUTO) 0.5 X10'3 (1.1-4.8); LYMPHOCYTES % (AUTO) 4.9 % (21-51); MEAN CORPUSCULAR HEMOGLOBIN 28.2 PG (27.0-31.0); MEAN CORPUSCULAR VOLUME 82.8 FL (78-98); MEAN PLATELET VOLUME 8.5 FL (7.4-10.4); MONOCYTES # (AUTO) 0.1 X10'3 (0-0.9); MONOCYTES % (AUTO) 0.8 % (2-12); NEUTROPHILS # (AUTO) 8.9 X10'3 (1.8-7.7); NEUTROPHILS % (AUTO) 92.9 % (42-75); PLATELET COUNT 328 X10'3 (140-440); RED BLOOD COUNT 4.58 X10'6 (4.70-6.10); RED CELL DISTRIBUTION WIDTH 16.3 % (11.5-14.5); WHITE BLOOD COUNT 9.6 X10'3 (4.5-11.0)
[2017-07-10 06:00] VITALS: BP 172/87
[2017-07-10 06:18] LABS: ALANINE AMINOTRANSFERASE 27 U/L (12-78); ALBUMIN 2.9 G/DL (3.4-5.0); ALBUMIN/GLOBULIN RATIO 0.6 (1.1-1.5); ALKALINE PHOSPHATASE 103 IU/L (46-116); ANION GAP 13 (8-16); ASPARTATE AMINO TRANSFERASE 16 U/L (10-37); BILIRUBIN,TOTAL 0.3 MG/DL (0.1-1.0); BLOOD UREA NITROGEN 27 MG/DL (7-18); BUN/CREATININE RATIO 20.3 (5.4-32.0); CALCIUM 9.2 MG/DL (8.5-10.1); CHLORIDE 105 MMOL/L (99-107); CREATININE 1.33 MG/DL (0.60-1.10); GLUCOSE 170 MG/DL (70-104); POTASSIUM 4.7 MMOL/L (3.5-5.1); SODIUM 142 MMOL/L (135-145); TOTAL CARBON DIOXIDE 23.7 MMOL/L (24-32); TOTAL PROTEIN 7.4 G/DL (6.4-8.2); eGFR 53 ML/MIN
[2017-07-10] MEDS: normal saline 1000ml 1,000 ML IV SCH (06:55)
[2017-07-10] MEDS ORDERED: magnesium 2GM in 50ml NS 50 ML IV SCH (08:00)
[2017-07-10] MEDS ORDERED: ARFORMOTEROL TARTRATE IH SCH (08:00)
[2017-07-10] MEDS: montelukast 10mg tablet PO SCH (08:30)
[2017-07-10] MEDS: losartan 50mg tablet PO SCH (08:30)
[2017-07-10] MEDS: pantoprazole 40mg Tablet.DR PO SCH (08:30)
[2017-07-10] MEDS: enoxaparin 80mg/0.8ml syringe SUBCUT SCH ×2 (08:30→20:38)
[2017-07-10] MEDS: aspirin 81mg tablet.DR PO SCH (08:30)
[2017-07-10] MEDS: levoFLOXACIN-Levaquin 500mg/D5 100 ML IV SCH (08:32)
[2017-07-10] MEDS: amLODIPine 5mg tablet PO SCH (08:32)
[2017-07-10] MEDS ORDERED: ACET-2119 PO (09:05)
[2017-07-10] MEDS ORDERED: LORA0.5T (09:06)
[2017-07-10] MEDS ORDERED: ATOR40TA72 (09:13)
[2017-07-10] MEDS ORDERED: MECL-111 (09:13)
[2017-07-10 11:00] VITALS: BP 156/87
[2017-07-10 14:41] LABS: ALLEN'S TEST Positive
[2017-07-10 15:00] VITALS: BP 162/84
[2017-07-10] MEDS ORDERED: albuterol 2.5 MG/3 ML nebule NEB SCH (15:00)
[2017-07-10] MEDS: lactobacillus rhamnosus 10,000 MMU CELLS/CAPSULE PO SCH (17:03)
[2017-07-10] MEDS ORDERED: albuterol 2.5 MG/3 ML nebule NEB PRN (17:30)
[2017-07-10 19:00] VITALS: BP 154/84
[2017-07-10] MEDS: atorvastatin 20mg tablet PO SCH (20:37)
[2017-07-10] MEDS: albuterol 2.5 MG/3 ML nebule NEB SCH (20:39)
[2017-07-10 23:00] VITALS: BP 171/89
[2017-07-10 23:18] LABS: ALANINE AMINOTRANSFERASE 21 U/L (12-78); ALBUMIN 2.9 G/DL (3.4-5.0); ALBUMIN/GLOBULIN RATIO 0.7 (1.1-1.5); ALKALINE PHOSPHATASE 102 IU/L (46-116); ANION GAP 14 (8-16); ASPARTATE AMINO TRANSFERASE 15 U/L (10-37); BILIRUBIN,TOTAL 0.2 MG/DL (0.1-1.0); BLOOD UREA NITROGEN 32 MG/DL (7-18); BUN/CREATININE RATIO 18.2 (5.4-32.0); CALCIUM 9.1 MG/DL (8.5-10.1); CHLORIDE 104 MMOL/L (99-107); CREATININE 1.76 MG/DL (0.60-1.10); GLUCOSE 156 MG/DL (70-104); MAGNESIUM 2.3 MG/DL (1.5-2.4); POTASSIUM 4.2 MMOL/L (3.5-5.1); SODIUM 142 MMOL/L (135-145); TOTAL CARBON DIOXIDE 24.3 MMOL/L (24-32); TOTAL PROTEIN 7.2 G/DL (6.4-8.2); eGFR 38 ML/MIN
[2017-07-10 23:24] LABS: BASOPHILS % (AUTO) 0 % (0-1); EOSINOPHILS # (AUTO) 0.2 X10'3 (0-0.9); EOSINOPHILS % (AUTO) 1.6 % (0-6); HEMATOCRIT 37.7 % (42.0-52.0); HEMOGLOBIN 12.5 g/dl (14.0-17.9); LYMPHOCYTES # (AUTO) 0.5 X10'3 (1.1-4.8); LYMPHOCYTES % (AUTO) 3.4 % (21-51); MEAN CORPUSCULAR HEMOGLOBIN 27.8 PG (27.0-31.0); MEAN CORPUSCULAR HGB CONC 33.1 % (33.0-36.5); MEAN PLATELET VOLUME 9.1 FL (7.4-10.4); MONOCYTES # (AUTO) 0.4 X10'3 (0-0.9); NEUTROPHILS # (AUTO) 13.7 X10'3 (1.8-7.7); PLATELET COUNT 319 X10'3 (140-440); RED BLOOD COUNT 4.49 X10'6 (4.70-6.10); RED CELL DISTRIBUTION WIDTH 15.9 % (11.5-14.5); WHITE BLOOD COUNT 14.9 X10'3 (4.5-11.0)
[2017-07-11] MEDS: albuterol 2.5 MG/3 ML nebule NEB SCH ×4 (00:25→12:40)
[2017-07-11 03:00] VITALS: BP 138/68
[2017-07-11] MEDS: methylPREDNISolone sod succ 125mg/2ml vial IV SCH ×3 (03:17→14:18)
[2017-07-11 06:00] VITALS: BP 145/78
[2017-07-11] MEDS: atorvastatin 20mg tablet PO SCH (09:11)
[2017-07-11] MEDS: levoFLOXACIN-Levaquin 500mg/D5 100 ML IV SCH (09:11)
[2017-07-11] MEDS: amLODIPine 5mg tablet PO SCH (09:12)
[2017-07-11] MEDS: aspirin 81mg tablet.DR PO SCH (09:12)
[2017-07-11] MEDS: losartan 50mg tablet PO SCH (09:12)
[2017-07-11] MEDS: pantoprazole 40mg Tablet.DR PO SCH (09:12)
[2017-07-11] MEDS: lactobacillus rhamnosus 10,000 MMU CELLS/CAPSULE PO SCH (09:12)
[2017-07-11] MEDS: montelukast 10mg tablet PO SCH (09:12)
[2017-07-11] MEDS: enoxaparin 80mg/0.8ml syringe SUBCUT SCH (09:18)
[2017-07-11] MEDS ORDERED: PRED50TA PO (12:02)
[2017-07-11] MEDS ORDERED: LEVO500T2 PO (12:03)
[2017-07-11 12:30] VITALS: BP 157/74
[2017-07-11 15:00] VITALS: BP 159/81
== END 2017-07-11 15:30 | disposition home or self-care (01) | DRG 683 ==
LOC: ER 15:46 → ED HOLD 20:46 → PCU 3S 23:35
PROVIDERS: ADMIT Family Medicine; ATTEND Internal Medicine
DX: N17.9 Acute kidney failure, unspecified (principal); J44.1 Chronic obstructive pulmonary disease with (acute) exacerbation; Z99.81 Dependence on supplemental oxygen; R09.02 Hypoxemia; E78.00 Pure hypercholesterolemia, unspecified; E78.5 Hyperlipidemia, unspecified; F41.9 Anxiety disorder, unspecified; I10 Essential (primary) hypertension; G89.29 Other chronic pain; Z77.090 Contact with and (suspected) exposure to asbestos; Z79.52 Long term (current) use of systemic steroids; Z79.82 Long term (current) use of aspirin; Z79.899 Other long term (current) drug therapy; Z87.891 Personal history of nicotine dependence
CPT/HCPCS: 36415; 36600; 71046; 80053; 82803; 83605; 83735; 83880; 84145; 84484; 85018; 85025; 85610; 85730; 87040; 87070; 87502; 87503; 93005; 93308; 94640; 94760; 96361; 96374; 99285; J1650; J1956; J2930; J3475; J7030

== ENCOUNTER → 2017-07-26 | Emergency (ER) | payer MEDICARE ==
[~2017-07-26] VITALS: Ht 188 cm; Wt 96.8 kg
[~2017-07-26] MED LIST changes: -ACET-1131 PO; +ACET-2119 PO; +ATOR40TA72; -DOXY100C2 PO; +LEVO250T2 PO; +LORA0.5T; +MECL-111; +albuterol 2.5 MG/3 ML nebule NEB ONE; +ipratropium/albuterol 3ml nebule NEB ONE; +levoFLOXACIN-Levaquin 500mg/D5 100 ML IV ONE; +methylPREDNISolone sod succ 125mg/2ml vial IV ONE; +normal saline 1000ML IV soln IVB ONE
[2017-07-26 16:15] LABS: BASOPHILS % (AUTO) 0.2 % (0-1); EOSINOPHILS # (AUTO) 0.3 X10'3 (0-0.9); EOSINOPHILS % (AUTO) 1.8 % (0-6); HEMATOCRIT 36.9 % (42.0-52.0); HEMOGLOBIN 12.4 g/dl (14.0-17.9); LYMPHOCYTES # (AUTO) 0.8 X10'3 (1.1-4.8); LYMPHOCYTES % (AUTO) 5.6 % (21-51); MEAN CORPUSCULAR HEMOGLOBIN 27.9 PG (27.0-31.0); MEAN CORPUSCULAR HGB CONC 33.6 % (33.0-36.5); MEAN CORPUSCULAR VOLUME 82.9 FL (78-98); MEAN PLATELET VOLUME 8.9 FL (7.4-10.4); MONOCYTES # (AUTO) 0.5 X10'3 (0-0.9); MONOCYTES % (AUTO) 3.3 % (2-12); NEUTROPHILS % (AUTO) 89.1 % (42-75); PLATELET COUNT 314 X10'3 (140-440); RED BLOOD COUNT 4.46 X10'6 (4.70-6.10); RED CELL DISTRIBUTION WIDTH 16.9 % (11.5-14.5); WHITE BLOOD COUNT 14.6 X10'3 (4.5-11.0)
[2017-07-26 16:38] LABS: ALANINE AMINOTRANSFERASE 17 U/L (12-78); ALBUMIN/GLOBULIN RATIO 0.7 (1.1-1.5); ALKALINE PHOSPHATASE 82 IU/L (46-116); ANION GAP 13 (8-16); ASPARTATE AMINO TRANSFERASE 16 U/L (10-37); BILIRUBIN,TOTAL 0.4 MG/DL (0.1-1.0); BLOOD UREA NITROGEN 24 MG/DL (7-18); BUN/CREATININE RATIO 14.2 (5.4-32.0); CHLORIDE 104 MMOL/L (99-107); CREATININE 1.69 MG/DL (0.60-1.10); GLUCOSE 112 MG/DL (70-104); POTASSIUM 5.3 MMOL/L (3.5-5.1); SODIUM 141 MMOL/L (135-145); TOTAL CARBON DIOXIDE 24.2 MMOL/L (24-32); TOTAL PROTEIN 7.3 G/DL (6.4-8.2); eGFR 40 ML/MIN
[2017-07-26 16:40] LABS: INR 0.9 INR; PARTIAL THROMBOPLASTIN TIME 26 SECONDS (22-32); PROTHROMBIN TIME 9.5 SECONDS (9.0-12.0)
[2017-07-26 20:49] VITALS: BP 150/82
== END | disposition home or self-care (01) ==
LOC: ER 15:26
DX: J44.1 Chronic obstructive pulmonary disease with (acute) exacerbation (principal); E78.00 Pure hypercholesterolemia, unspecified; I10 Essential (primary) hypertension; G89.29 Other chronic pain; Z79.82 Long term (current) use of aspirin; Z79.899 Other long term (current) drug therapy
CPT/HCPCS: 36415; 71046; 80053; 83605; 84484; 85025; 85610; 85730; 87040; 94640; 94760; 96365; 96375; 99285; J1956; J2930; J7030

== ENCOUNTER 2017-08-06 19:44 | Inpatient (IN) | payer MEDICARE ==
[~2017-08-06] VITALS: Ht 188 cm; Wt 92.3 kg
[~2017-08-06 19:44] MED LIST changes: -albuterol 2.5 MG/3 ML nebule NEB ONE; -ipratropium/albuterol 3ml nebule NEB ONE; -levoFLOXACIN-Levaquin 500mg/D5 100 ML IV ONE; -methylPREDNISolone sod succ 125mg/2ml vial IV ONE; -normal saline 1000ML IV soln IVB ONE
[2017-08-06 20:04] LABS: BASOPHILS % (AUTO) 0.4 % (0-1); EOSINOPHILS # (AUTO) 1.8 X10'3 (0-0.9); HEMOGLOBIN 13.1 g/dl (14.0-17.9); LYMPHOCYTES # (AUTO) 1.8 X10'3 (1.1-4.8); LYMPHOCYTES % (AUTO) 14.1 % (21-51); MEAN CORPUSCULAR HGB CONC 33.6 % (33.0-36.5); MEAN CORPUSCULAR VOLUME 83.4 FL (78-98); MEAN PLATELET VOLUME 8.1 FL (7.4-10.4); MONOCYTES # (AUTO) 1.1 X10'3 (0-0.9); MONOCYTES % (AUTO) 8.8 % (2-12); NEUTROPHILS % (AUTO) 62.7 % (42-75); PLATELET COUNT 320 X10'3 (140-440); RED BLOOD COUNT 4.68 X10'6 (4.70-6.10); RED CELL DISTRIBUTION WIDTH 16.8 % (11.5-14.5); WHITE BLOOD COUNT 12.8 X10'3 (4.5-11.0)
[2017-08-06 20:14] LABS: INR 0.9 INR; PARTIAL THROMBOPLASTIN TIME 25 SECONDS (22-32); PROTHROMBIN TIME 9.4 SECONDS (9.0-12.0)
[2017-08-06 20:19] LABS: ALANINE AMINOTRANSFERASE 25 U/L (12-78); ALBUMIN/GLOBULIN RATIO 0.7 (1.1-1.5); ALKALINE PHOSPHATASE 85 IU/L (46-116); ANION GAP 9 (8-16); ASPARTATE AMINO TRANSFERASE 17 U/L (10-37); BILIRUBIN,TOTAL 0.3 MG/DL (0.1-1.0); BLOOD UREA NITROGEN 19 MG/DL (7-18); CALCIUM 9.3 MG/DL (8.5-10.1); CHLORIDE 104 MMOL/L (99-107); CREATININE 1.46 MG/DL (0.60-1.10); GLUCOSE 114 MG/DL (70-104); POTASSIUM 4.5 MMOL/L (3.5-5.1); SODIUM 139 MMOL/L (135-145); TOTAL CARBON DIOXIDE 25.8 MMOL/L (24-32); TOTAL PROTEIN 7.1 G/DL (6.4-8.2); eGFR 47 ML/MIN
[2017-08-06] MEDS ORDERED: albuterol 2.5 MG/3 ML nebule CONTNEB PRN ×3 (20:50→22:40)
[2017-08-06] MEDS ORDERED: methylPREDNISolone sod succ 125mg/2ml vial IV ONE (20:50)
[2017-08-06] MEDS ORDERED: normal saline 1000ML IV soln IVB ONE (20:50)
[2017-08-06] MEDS: albuterol 2.5 MG/3 ML nebule CONTNEB PRN ×2 (21:18→23:06)
[2017-08-06] MEDS ORDERED: azithromycin/NS 500mg/250ml 250 ML IV ONE (22:55)
[2017-08-06] MEDS ORDERED: CefTRIAXone 2gm/D5W 50ml 50 ML IV ONE (22:55)
[2017-08-06] MEDS ORDERED: HYDROcodone/acetaminophen 5mg/325mg tablet PO PRN (23:15)
[2017-08-06] MEDS ORDERED: ondansetron/PF 4mg/2ml inj IV PRN (23:15)
[2017-08-06] MEDS ORDERED: acetaminophen 325mg tablet PO PRN (23:15)
[2017-08-06] MEDS ORDERED: albuterol 2.5 MG/3 ML nebule NEB PRN (23:15)
[2017-08-07] MEDS ORDERED: albuterol 2.5 MG/3 ML nebule NEB SCH
[2017-08-07] MEDS: piperacillin/tazo 3.375gm/50ml 50 ML IV SCH ×4 (01:53→19:37)
[2017-08-07] MEDS: ipratropium/albuterol 3ml nebule NEB SCH ×6 (02:42→23:14)
[2017-08-07 05:54] LABS: BASOPHILS % (AUTO) 0.1 % (0-1); EOSINOPHILS # (AUTO) 0.1 X10'3 (0-0.9); EOSINOPHILS % (AUTO) 1.2 % (0-6); HEMATOCRIT 35.3 % (42.0-52.0); HEMOGLOBIN 12.1 g/dl (14.0-17.9); LYMPHOCYTES # (AUTO) 0.3 X10'3 (1.1-4.8); LYMPHOCYTES % (AUTO) 3.7 % (21-51); MEAN CORPUSCULAR HEMOGLOBIN 28.1 PG (27.0-31.0); MEAN CORPUSCULAR HGB CONC 34.2 % (33.0-36.5); MEAN CORPUSCULAR VOLUME 82.1 FL (78-98); MEAN PLATELET VOLUME 8.5 FL (7.4-10.4); MONOCYTES # (AUTO) 0.1 X10'3 (0-0.9); NEUTROPHILS # (AUTO) 8.8 X10'3 (1.8-7.7); PLATELET COUNT 289 X10'3 (140-440); WHITE BLOOD COUNT 9.3 X10'3 (4.5-11.0)
[2017-08-07 06:28] LABS: ALBUMIN 2.8 G/DL (3.4-5.0); ANION GAP 12 (8-16); BLOOD UREA NITROGEN 26 MG/DL (7-18); CALCIUM 8.9 MG/DL (8.5-10.1); CHLORIDE 105 MMOL/L (99-107); CREATININE 1.37 MG/DL (0.60-1.10); GLUCOSE 181 MG/DL (70-104); POTASSIUM 4.9 MMOL/L (3.5-5.1); SODIUM 141 MMOL/L (135-145); TOTAL CARBON DIOXIDE 24.3 MMOL/L (24-32); eGFR 51 ML/MIN
[2017-08-07 07:09] LABS: TROPONIN I < 0.04 NG/ML (0.0-0.05)
[2017-08-07] MEDS: budesonide 0.5mg/2ml UD nebule IH SCH ×2 (07:49→19:34)
[2017-08-07] MEDS: enoxaparin 40mg/0.4ml syringe SUBCUT SCH (08:05)
[2017-08-07] MEDS: methylPREDNISolone sod succ 125mg/2ml vial IV SCH ×3 (08:06→16:19)
[2017-08-07] MEDS: amLODIPine 5mg tablet PO SCH (08:07)
[2017-08-07] MEDS: lactobacillus rhamnosus 10,000 MMU CELLS/CAPSULE PO SCH ×2 (08:07→19:37)
[2017-08-07] MEDS: aspirin 81mg tablet.DR PO SCH (08:07)
[2017-08-07] MEDS: famotidine 20mg tablet PO SCH ×2 (08:08→19:36)
[2017-08-07] MEDS: montelukast 10mg tablet PO SCH (08:08)
[2017-08-07] MEDS: losartan 50mg tablet PO SCH (08:08)
[2017-08-07 12:18] VITALS: BP 146/87
[2017-08-07 19:00] VITALS: BP 132/68
[2017-08-08] VITALS: BP 143/67
[2017-08-08] MEDS: methylPREDNISolone sod succ 125mg/2ml vial IV SCH ×2 (00:39→08:00)
[2017-08-08] MEDS: piperacillin/tazo 3.375gm/50ml 50 ML IV SCH ×2 (01:26→08:00)
[2017-08-08] MEDS: ipratropium/albuterol 3ml nebule NEB SCH ×2 (03:14→07:00)
[2017-08-08 04:18] LABS: BASOPHILS % (AUTO) 0 % (0-1); EOSINOPHILS # (AUTO) 0.2 X10'3 (0-0.9); EOSINOPHILS % (AUTO) 1.3 % (0-6); HEMATOCRIT 32.8 % (42.0-52.0); LYMPHOCYTES # (AUTO) 0.5 X10'3 (1.1-4.8); MEAN CORPUSCULAR HEMOGLOBIN 27.9 PG (27.0-31.0); MEAN CORPUSCULAR HGB CONC 33.4 % (33.0-36.5); MEAN CORPUSCULAR VOLUME 83.3 FL (78-98); MEAN PLATELET VOLUME 8.5 FL (7.4-10.4); MONOCYTES # (AUTO) 0.5 X10'3 (0-0.9); MONOCYTES % (AUTO) 3.7 % (2-12); NEUTROPHILS # (AUTO) 12.5 X10'3 (1.8-7.7); PLATELET COUNT 272 X10'3 (140-440); RED BLOOD COUNT 3.93 X10'6 (4.70-6.10); WHITE BLOOD COUNT 13.7 X10'3 (4.5-11.0)
[2017-08-08 05:01] LABS: ALBUMIN 2.5 G/DL (3.4-5.0); ANION GAP 13 (8-16); BLOOD UREA NITROGEN 28 MG/DL (7-18); BUN/CREATININE RATIO 21.1 (5.4-32.0); CALCIUM 8.7 MG/DL (8.5-10.1); CHLORIDE 101 MMOL/L (99-107); CREATININE 1.33 MG/DL (0.60-1.10); GLUCOSE 142 MG/DL (70-104); POTASSIUM 4.2 MMOL/L (3.5-5.1); SODIUM 137 MMOL/L (135-145); TOTAL CARBON DIOXIDE 23.4 MMOL/L (24-32); eGFR 53 ML/MIN
[2017-08-08 06:00] VITALS: BP 170/71
[2017-08-08] MEDS: famotidine 20mg tablet PO SCH (08:00)
[2017-08-08] MEDS: budesonide 0.5mg/2ml UD nebule IH SCH (08:00)
[2017-08-08] MEDS: lactobacillus rhamnosus 10,000 MMU CELLS/CAPSULE PO SCH (08:00)
[2017-08-08] MEDS: aspirin 81mg tablet.DR PO SCH (08:00)
[2017-08-08] MEDS: amLODIPine 5mg tablet PO SCH (08:00)
[2017-08-08] MEDS: montelukast 10mg tablet PO SCH (08:00)
[2017-08-08] MEDS: losartan 50mg tablet PO SCH (08:00)
[2017-08-08] MEDS: enoxaparin 40mg/0.4ml syringe SUBCUT SCH (08:00)
[2017-08-08] MEDS ORDERED: PRED5TAB PO (09:35)
== END 2017-08-08 10:24 | disposition home or self-care (01) | DRG 191 ==
LOC: ER 19:44 → ED HOLD 23:15 → SUR 3N 08-07 12:16
PROVIDERS: ADMIT Family Medicine; ATTEND Family Medicine
DX: J44.1 Chronic obstructive pulmonary disease with (acute) exacerbation (principal); N17.9 Acute kidney failure, unspecified; J84.10 Pulmonary fibrosis, unspecified; Z99.81 Dependence on supplemental oxygen; N18.3 Chronic kidney disease, stage 3 (moderate); E78.00 Pure hypercholesterolemia, unspecified; I12.9 Hypertensive chronic kidney disease with stage 1 through stage 4 chronic kidney disease, or unspecified chronic kidney disease; G89.29 Other chronic pain; M54.9 Dorsalgia, unspecified; N40.0 Benign prostatic hyperplasia without lower urinary tract symptoms; Z77.090 Contact with and (suspected) exposure to asbestos; Z79.52 Long term (current) use of systemic steroids; Z79.899 Other long term (current) drug therapy; Z79.82 Long term (current) use of aspirin; Z87.891 Personal history of nicotine dependence; Z82.5 Family history of asthma and other chronic lower respiratory diseases
CPT/HCPCS: 36415; 71045; 80048; 80053; 83605; 84484; 85025; 85610; 85730; 87040; 87070; 93005; 94640; 94667; 94760; A6258; J0456; J0696; J1650; J2543; J2930; J7030; J7626

== ENCOUNTER 2017-08-20 11:16 | Emergency (ER) | payer MEDICARE ==
[~2017-08-20] VITALS: Ht 6122.6 cm; Wt 96.4 kg
[~2017-08-20 11:16] MED LIST changes: -ACET-2119 PO; -ALB0.5UD IH; -ARFO15VI3 NEB; -ATR0.5NEB IH; -BUDE0.5A11 NEB; -LEVO250T2 PO; -LORA0.5T; -MECL-111; -PANT40TA4 PO; +PRED5TAB PO
[2017-08-20 12:10] LABS: BASOPHILS # (AUTO) 0.1 X10'3 (0-0.2); BASOPHILS % (AUTO) 0.6 % (0-1); EOSINOPHILS # (AUTO) 1.4 X10'3 (0-0.9); EOSINOPHILS % (AUTO) 9.2 % (0-6); HEMATOCRIT 37.1 % (42.0-52.0); HEMOGLOBIN 12.4 g/dl (14.0-17.9); LYMPHOCYTES # (AUTO) 1.7 X10'3 (1.1-4.8); LYMPHOCYTES % (AUTO) 11.4 % (21-51); MEAN CORPUSCULAR HEMOGLOBIN 28.1 PG (27.0-31.0); MEAN CORPUSCULAR HGB CONC 33.4 % (33.0-36.5); MEAN CORPUSCULAR VOLUME 83.9 FL (78-98); MEAN PLATELET VOLUME 8.3 FL (7.4-10.4); MONOCYTES # (AUTO) 0.8 X10'3 (0-0.9); MONOCYTES % (AUTO) 5.1 % (2-12); NEUTROPHILS # (AUTO) 10.9 X10'3 (1.8-7.7); NEUTROPHILS % (AUTO) 73.7 % (42-75); PLATELET COUNT 317 X10'3 (140-440); RED BLOOD COUNT 4.42 X10'6 (4.70-6.10); RED CELL DISTRIBUTION WIDTH 17.2 % (11.5-14.5); WHITE BLOOD COUNT 14.8 X10'3 (4.5-11.0)
[2017-08-20 12:33] LABS: ALANINE AMINOTRANSFERASE 24 U/L (12-78); ALBUMIN 2.9 G/DL (3.4-5.0); ALBUMIN/GLOBULIN RATIO 0.7 (1.1-1.5); ALKALINE PHOSPHATASE 66 IU/L (46-116); ANION GAP 11 (8-16); ASPARTATE AMINO TRANSFERASE 13 U/L (10-37); BILIRUBIN,TOTAL 0.3 MG/DL (0.1-1.0); BLOOD UREA NITROGEN 24 MG/DL (7-18); BUN/CREATININE RATIO 19.4 (5.4-32.0); CALCIUM 9.1 MG/DL (8.5-10.1); CHLORIDE 106 MMOL/L (99-107); CREATININE 1.24 MG/DL (0.60-1.10); GLUCOSE 91 MG/DL (70-104); POTASSIUM 4.1 MMOL/L (3.5-5.1); SODIUM 143 MMOL/L (135-145); TOTAL CARBON DIOXIDE 26.1 MMOL/L (24-32); eGFR 57 ML/MIN
[2017-08-20 12:42] LABS: INR 0.9 INR; PARTIAL THROMBOPLASTIN TIME 25 SECONDS (22-32); PROTHROMBIN TIME 9.4 SECONDS (9.0-12.0)
[2017-08-20] MEDS ORDERED: methylPREDNISolone sod succ 125mg/2ml vial IV STA (14:51)
[2017-08-20] MEDS ORDERED: LEVO750T21 PO (14:54)
[2017-08-20 15:10] VITALS: BP 169/75
== END 2017-08-20 15:13 | disposition home or self-care (01) ==
LOC: ER 11:17
DX: J44.1 Chronic obstructive pulmonary disease with (acute) exacerbation (principal); I10 Essential (primary) hypertension; E78.00 Pure hypercholesterolemia, unspecified; G89.29 Other chronic pain; Z79.82 Long term (current) use of aspirin; Z79.899 Other long term (current) drug therapy
CPT/HCPCS: 36415; 71045; 80053; 84484; 85025; 85610; 85730; 93005; 99285; J2930

== ENCOUNTER 2017-09-24 19:16 | Emergency (ER) | payer MEDICARE ==
[~2017-09-24] VITALS: Ht 188 cm; Wt 93.0 kg
[~2017-09-24 19:16] MED LIST changes: -ATOR40TA72; +ATOR40TA72 PO
[2017-09-24] MEDS ORDERED: DOXY-257 PO (19:55)
[2017-09-24] MEDS ORDERED: THEO300T22 PO (19:55)
[2017-09-24] MEDS ORDERED: IPRA3AMP IH (19:55)
[2017-09-24] MEDS ORDERED: PANT40TA4 PO (19:55)
[2017-09-24] MEDS ORDERED: MECL-111 PO (19:55)
[2017-09-24] MEDS ORDERED: TIOT4MIS3 INH (19:55)
[2017-09-24] MEDS ORDERED: CHOL400T57 CORPAK (19:55)
[2017-09-24] MEDS ORDERED: LORA0.5T PO (19:55)
[2017-09-24 20:49] VITALS: BP 138/73
== END 2017-09-24 20:53 | disposition home or self-care (01) ==
LOC: ER 19:17
DX: S46.912A Strain of unspecified muscle, fascia and tendon at shoulder and upper arm level, left arm, initial encounter (principal); E78.00 Pure hypercholesterolemia, unspecified; I10 Essential (primary) hypertension; G89.29 Other chronic pain; J44.9 Chronic obstructive pulmonary disease, unspecified; Z98.890 Other specified postprocedural states; Z79.82 Long term (current) use of aspirin; Z79.899 Other long term (current) drug therapy; X58.XXXA Exposure to other specified factors, initial encounter; Y93.89 Activity, other specified; Y92.89 Other specified places as the place of occurrence of the external cause; Y99.8 Other external cause status
CPT/HCPCS: 73030; 99284

== ENCOUNTER 2017-10-16 00:45 | Emergency (ER) | payer MEDICARE ==
[~2017-10-16] VITALS: Ht 188 cm; Wt 96.0 kg
[~2017-10-16 00:45] MED LIST changes: +CHOL400T57 CORPAK; +IPRA3AMP IH; +LEVO500T2 PO; +LORA0.5T PO; +MECL-111 PO; +PANT40TA4 PO; -PRED50TA PO; +THEO300T22 PO; +TIOT4MIS3 INH
[2017-10-16] MEDS ORDERED: albuterol 2.5 MG/3 ML nebule ONE (00:52)
[2017-10-16] MEDS ORDERED: methylPREDNISolone sod succ 125mg/2ml vial IV ONE (01:00)
[2017-10-16 01:25] LABS: BASOPHILS # (AUTO) 0.1 X10'3 (0-0.2); BASOPHILS % (AUTO) 1.1 % (0-1); EOSINOPHILS # (AUTO) 0.7 X10'3 (0-0.9); EOSINOPHILS % (AUTO) 5.6 % (0-6); HEMATOCRIT 39.2 % (42.0-52.0); HEMOGLOBIN 12.3 g/dl (14.0-17.9); LYMPHOCYTES # (AUTO) 1.5 X10'3 (1.1-4.8); LYMPHOCYTES % (AUTO) 11.9 % (21-51); MEAN CORPUSCULAR HEMOGLOBIN 26.3 PG (27.0-31.0); MEAN CORPUSCULAR HGB CONC 31.5 % (33.0-36.5); MEAN CORPUSCULAR VOLUME 83.6 FL (78-98); MEAN PLATELET VOLUME 9.1 FL (7.4-10.4); MONOCYTES # (AUTO) 0.7 X10'3 (0-0.9); MONOCYTES % (AUTO) 5.5 % (2-12); NEUTROPHILS # (AUTO) 9.7 X10'3 (1.8-7.7); NEUTROPHILS % (AUTO) 75.9 % (42-75); PLATELET COUNT 331 X10'3 (140-440); RED BLOOD COUNT 4.68 X10'6 (4.70-6.10); RED CELL DISTRIBUTION WIDTH 16.3 % (11.5-14.5); WHITE BLOOD COUNT 12.7 X10'3 (4.5-11.0)
[2017-10-16 01:39] LABS: ALANINE AMINOTRANSFERASE 28 U/L (12-78); ALBUMIN 3.1 G/DL (3.4-5.0); ALBUMIN/GLOBULIN RATIO 0.8 (1.1-1.5); ALKALINE PHOSPHATASE 73 IU/L (46-116); ANION GAP 11 (8-16); ASPARTATE AMINO TRANSFERASE 18 U/L (10-37); BILIRUBIN,TOTAL 0.2 MG/DL (0.1-1.0); BLOOD UREA NITROGEN 33 MG/DL (7-18); BUN/CREATININE RATIO 17.9 (5.4-32.0); CALCIUM 9.4 MG/DL (8.5-10.1); CHLORIDE 108 MMOL/L (99-107); CREATININE 1.84 MG/DL (0.60-1.10); GLUCOSE 88 MG/DL (70-104); POTASSIUM 4.4 MMOL/L (3.5-5.1); SODIUM 143 MMOL/L (135-145); TOTAL CARBON DIOXIDE 23.7 MMOL/L (24-32); TOTAL PROTEIN 7.1 G/DL (6.4-8.2); eGFR 36 ML/MIN
[2017-10-16 01:57] VITALS: BP 144/75
[2017-10-16] MEDS ORDERED: PRED10TA23 PO (02:21)
== END 2017-10-16 02:42 | disposition home or self-care (01) ==
LOC: ER 00:45
DX: J44.1 Chronic obstructive pulmonary disease with (acute) exacerbation (principal); J90 Pleural effusion, not elsewhere classified; E78.00 Pure hypercholesterolemia, unspecified; I10 Essential (primary) hypertension; G89.29 Other chronic pain; Z98.890 Other specified postprocedural states; Z79.82 Long term (current) use of aspirin; Z79.899 Other long term (current) drug therapy
CPT/HCPCS: 36415; 71045; 80053; 83605; 83880; 84484; 85025; 87040; 93005; 94640; 96374; 99291; J2930

== ENCOUNTER 2017-11-25 08:09 | Emergency (ER) | payer MEDICARE ==
[~2017-11-25] VITALS: Ht 190.5 cm; Wt 99.0 kg
[~2017-11-25 08:09] MED LIST changes: -LEVO500T2 PO
[2017-11-25] MEDS ORDERED: methylPREDNISolone sod succ 125mg/2ml vial IV ONE (08:25)
[2017-11-25] MEDS ORDERED: ipratropium/albuterol 3ml nebule NEB ONE (08:25)
[2017-11-25 08:34] LABS: BASOPHILS % (AUTO) 0.2 % (0-1); EOSINOPHILS # (AUTO) 0.8 X10'3 (0-0.9); HEMATOCRIT 35.7 % (42.0-52.0); HEMOGLOBIN 11.8 g/dl (14.0-17.9); LYMPHOCYTES # (AUTO) 1.1 X10'3 (1.1-4.8); LYMPHOCYTES % (AUTO) 8.5 % (21-51); MEAN CORPUSCULAR HEMOGLOBIN 27.4 PG (27.0-31.0); MEAN CORPUSCULAR HGB CONC 32.9 % (33.0-36.5); MEAN CORPUSCULAR VOLUME 83.2 FL (78-98); MEAN PLATELET VOLUME 8.5 FL (7.4-10.4); MONOCYTES # (AUTO) 0.5 X10'3 (0-0.9); MONOCYTES % (AUTO) 4.1 % (2-12); NEUTROPHILS # (AUTO) 10.6 X10'3 (1.8-7.7); NEUTROPHILS % (AUTO) 81.2 % (42-75); PLATELET COUNT 281 X10'3 (140-440); RED BLOOD COUNT 4.29 X10'6 (4.70-6.10); RED CELL DISTRIBUTION WIDTH 17.3 % (11.5-14.5); WHITE BLOOD COUNT 13.1 X10'3 (4.5-11.0)
[2017-11-25 09:03] LABS: PLATELET ESTIMATE NORMAL; TOTAL CELLS COUNTED 100
[2017-11-25 09:04] LABS: ANISOCYTOSIS 1+; MICROCYTOSIS 1+
[2017-11-25 09:17] LABS: ALANINE AMINOTRANSFERASE 26 U/L (12-78); ALBUMIN 2.8 G/DL (3.4-5.0); ALBUMIN/GLOBULIN RATIO 0.8 (1.1-1.5); ALKALINE PHOSPHATASE 52 IU/L (46-116); ANION GAP 12 (8-16); ASPARTATE AMINO TRANSFERASE 16 U/L (10-37); BILIRUBIN,TOTAL 0.3 MG/DL (0.1-1.0); BLOOD UREA NITROGEN 30 MG/DL (7-18); BUN/CREATININE RATIO 22.1 (5.4-32.0); CALCIUM 8.7 MG/DL (8.5-10.1); CHLORIDE 107 MMOL/L (99-107); CREATININE 1.36 MG/DL (0.60-1.10); GLUCOSE 100 MG/DL (70-104); POTASSIUM 4.6 MMOL/L (3.5-5.1); SODIUM 143 MMOL/L (135-145); TOTAL CARBON DIOXIDE 23.9 MMOL/L (24-32); TOTAL PROTEIN 6.4 G/DL (6.4-8.2); eGFR 51 ML/MIN
[2017-11-25 09:22] VITALS: BP 135/67
== END 2017-11-25 10:00 | disposition home or self-care (01) ==
LOC: ER 08:09
DX: J44.1 Chronic obstructive pulmonary disease with (acute) exacerbation (principal); E78.00 Pure hypercholesterolemia, unspecified; I10 Essential (primary) hypertension; Z79.82 Long term (current) use of aspirin; Z79.899 Other long term (current) drug therapy
CPT/HCPCS: 36415; 71046; 80053; 83880; 85025; 93005; 93971; 94640; 94760; 96374; 99285; J2930

== ENCOUNTER 2018-01-07 08:08 | Emergency (ER) | payer MEDICARE ==
[~2018-01-07] VITALS: Ht 188 cm; Wt 100.0 kg
[~2018-01-07 08:08] MED LIST changes: +AZIT-63 PO; +BENZ-16 PO; -IPRA3AMP IH; +IPRA3AMP31 IH
[2018-01-07] MEDS ORDERED: ipratropium 0.5 MG/2.5ML nebule IH ONE (08:30)
[2018-01-07] MEDS ORDERED: albuterol 2.5 MG/3 ML nebule CONTNEB PRN (08:30)
[2018-01-07] MEDS ORDERED: methylPREDNISolone sod succ 125mg/2ml vial IV ONE (08:30)
[2018-01-07] MEDS ORDERED: guaiFENesin ER 600mg tablet PO ONE (08:35)
[2018-01-07] MEDS ORDERED: guaiFENesin/codeine phos 10ml UD oral syrup PO ONE (08:35)
[2018-01-07] MEDS ORDERED: GUAI10SY2 PO (11:03)
[2018-01-07 11:27] VITALS: BP 124/71
== END 2018-01-07 11:28 | disposition home or self-care (01) ==
LOC: ER 08:09
DX: J44.1 Chronic obstructive pulmonary disease with (acute) exacerbation (principal); E78.00 Pure hypercholesterolemia, unspecified; I10 Essential (primary) hypertension; G89.29 Other chronic pain; Z98.890 Other specified postprocedural states; Z79.82 Long term (current) use of aspirin; Z79.899 Other long term (current) drug therapy; Z87.891 Personal history of nicotine dependence
CPT/HCPCS: 93005; 94644; 94760; 96374; 99285; J2930; 94640

== ENCOUNTER 2018-01-13 06:54 | Inpatient (IN) | payer MEDICARE ==
[~2018-01-13] VITALS: Ht 188 cm; Wt 100.0 kg
[~2018-01-13 06:54] MED LIST changes: +GUAI10SY2 PO; +LOSA50TA21 PO; -LOSA50TA37 PO
[2018-01-13] MEDS ORDERED: ipratropium/albuterol 3ml nebule NEB ONE (07:35)
[2018-01-13 07:55] LABS: BASOPHILS # (AUTO) 0.1 X10'3 (0-0.2); BASOPHILS % (AUTO) 0.7 % (0-1); EOSINOPHILS # (AUTO) 0.9 X10'3 (0-0.9); EOSINOPHILS % (AUTO) 8.1 % (0-6); HEMATOCRIT 36.3 % (42.0-52.0); HEMOGLOBIN 11.9 g/dl (14.0-17.9); LYMPHOCYTES # (AUTO) 1.3 X10'3 (1.1-4.8); LYMPHOCYTES % (AUTO) 11.4 % (21-51); MEAN CORPUSCULAR HEMOGLOBIN 27.4 PG (27.0-31.0); MEAN CORPUSCULAR HGB CONC 32.8 % (33.0-36.5); MEAN CORPUSCULAR VOLUME 83.7 FL (78-98); MEAN PLATELET VOLUME 9.3 FL (7.4-10.4); MONOCYTES # (AUTO) 0.7 X10'3 (0-0.9); MONOCYTES % (AUTO) 5.7 % (2-12); NEUTROPHILS # (AUTO) 8.5 X10'3 (1.8-7.7); NEUTROPHILS % (AUTO) 74.1 % (42-75); PLATELET COUNT 283 X10'3 (140-440); RED BLOOD COUNT 4.34 X10'6 (4.70-6.10); RED CELL DISTRIBUTION WIDTH 17.9 % (11.5-14.5); WHITE BLOOD COUNT 11.4 X10'3 (4.5-11.0)
[2018-01-13 08:28] LABS: INR 0.9 INR; PARTIAL THROMBOPLASTIN TIME 24 SECONDS (22-32); PROTHROMBIN TIME 9.4 SECONDS (9.0-12.0)
[2018-01-13 08:59] LABS: ALANINE AMINOTRANSFERASE 23 U/L (12-78); ALBUMIN 2.8 G/DL (3.4-5.0); ALBUMIN/GLOBULIN RATIO 0.7 (1.1-1.5); ALKALINE PHOSPHATASE 65 IU/L (46-116); ANION GAP 11 (8-16); ASPARTATE AMINO TRANSFERASE 18 U/L (10-37); BILIRUBIN,TOTAL 0.3 MG/DL (0.1-1.0); BLOOD UREA NITROGEN 29 MG/DL (7-18); BUN/CREATININE RATIO 20.1 (5.4-32.0); CALCIUM 8.9 MG/DL (8.5-10.1); CHLORIDE 103 MMOL/L (99-107); CREATININE 1.44 MG/DL (0.60-1.10); GLUCOSE 88 MG/DL (70-104); POTASSIUM 4.6 MMOL/L (3.5-5.1); SODIUM 138 MMOL/L (135-145); TOTAL CARBON DIOXIDE 24.4 MMOL/L (24-32); TOTAL PROTEIN 6.6 G/DL (6.4-8.2); eGFR 48 ML/MIN
[2018-01-13 09:26] LABS: CLARITY,URINE Clear (Clear); COLOR,URINE Yellow (Yellow); GLUCOSE, URINE Negative (Neg); KETONES,URINE Negative (Neg); LEUKOCYTE ESTERASE ,URINE Negative (Neg); NITRITES, URINE Negative (Neg); OCCULT BLOOD,URINE Negative (Neg); PH,URINE 6.5 (4.8-8.0); PROTEIN,URINE Trace mg/dl (Neg); UROBILINOGEN,URINE 0.2 E.U/dL (0.2-1.0)
[2018-01-13] MEDS ORDERED: HYDROcodone/acetaminophen 5mg/325mg tablet PO PRN (09:35)
[2018-01-13] MEDS ORDERED: magnesium 4gm in 100ml NS 100 ML IV PRN (09:35)
[2018-01-13] MEDS ORDERED: potassium Cl 40MEQ/NS 500ml 500 ML IV PRN ×2 (09:35)
[2018-01-13] MEDS ORDERED: mag hydrox/Alum hydrox/simeth 30ml oral suspension PO PRN (09:35)
[2018-01-13] MEDS ORDERED: HYDROcodone/acetaminophen 10/325mg tab PO PRN (09:35)
[2018-01-13] MEDS ORDERED: magnesium 1gm/100ml D5W IVPB 100 ML IV PRN (09:35)
[2018-01-13] MEDS ORDERED: magnesium hydroxide 30ml (MOM) UD suspension PO PRN (09:35)
[2018-01-13] MEDS ORDERED: morphine 4 MG/ML inj SYRINge IV PRN ×2 (09:35)
[2018-01-13] MEDS ORDERED: potassium Cl 20 mEq SR tablet PO PRN ×2 (09:35)
[2018-01-13] MEDS ORDERED: acetaminophen 325mg tablet PO PRN (09:35)
[2018-01-13] MEDS ORDERED: magnesium Cl slow-release 64mg tablet PO PRN (09:35)
[2018-01-13] MEDS ORDERED: ondansetron/PF 4mg/2ml inj IV PRN (09:35)
[2018-01-13 09:38] LABS: UA COLLECTION TYPE VOIDED
[2018-01-13 09:42] LABS: BACTERIA,URINE NONE SEEN /HPF (Neg); MUCUS STRANDS NONE SEEN /LPF (Neg); RBC,URINE 0-2 /HPF (0-2); SQUAMOUS EPITHELIAL CELL,UR NONE SEEN /LPF (FEW); WBC,URINE NONE SEEN /HPF (0-4)
[2018-01-13 12:11] LABS: ABG BASE EXCESS -0.9 mmol/L (-2.0-3.0); ABG HCO3 22.8 mmol/L (22.0-26.0); ABG OXYGEN SATURATION 94.9 % (95-98); ABG PCO2 (T) 34.6 mmHg (35.0-48.0); ABG PH (T) 7.436 (7.350-7.450); ABG PO2 (T) 77.2 mmHg (83-108); ALLEN'S TEST Positive; FCOHb 1.7 % (0.5-1.5); FMetHb 0.3 % (0.3-1.12); TOTAL HEMOGLOBIN 12.8 G/dl (14.0-18.0)
[2018-01-13] MEDS ORDERED: levalbuterol 0.63mg/3ml nebule IH SCH (15:00)
[2018-01-13 15:30] VITALS: BP 169/85
[2018-01-13 18:30] VITALS: BP 169/85
[2018-01-13] MEDS: methylPREDNISolone sod succ 125mg/2ml vial IV SCH (19:55)
[2018-01-13] MEDS: heparin, porcine 5000 units/ml vial SQ SCH (20:00)
[2018-01-13] MEDS: albuterol 2.5 MG/3 ML nebule NEB SCH ×2 (20:17→23:05)
[2018-01-13] MEDS ORDERED: amLODIPine 5mg tablet PO ONE (23:50)
[2018-01-14] VITALS: BP 184/91
[2018-01-14] MEDS ORDERED: albuterol 2.5 MG/3 ML nebule NEB SCH
[2018-01-14 01:15] VITALS: BP 164/75
[2018-01-14] MEDS: albuterol 2.5 MG/3 ML nebule NEB SCH ×6 (03:09→23:18)
[2018-01-14 04:40] LABS: BASOPHILS # (AUTO) 0.2 X10'3 (0-0.2); BASOPHILS % (AUTO) 1.9 % (0-1); EOSINOPHILS % (AUTO) 0.1 % (0-6); HEMATOCRIT 36.4 % (42.0-52.0); HEMOGLOBIN 12.1 g/dl (14.0-17.9); LYMPHOCYTES # (AUTO) 0.4 X10'3 (1.1-4.8); LYMPHOCYTES % (AUTO) 3.5 % (21-51); MEAN CORPUSCULAR HEMOGLOBIN 27.7 PG (27.0-31.0); MEAN CORPUSCULAR HGB CONC 33.4 % (33.0-36.5); MEAN CORPUSCULAR VOLUME 82.9 FL (78-98); MEAN PLATELET VOLUME 9.4 FL (7.4-10.4); MONOCYTES # (AUTO) 0.1 X10'3 (0-0.9); NEUTROPHILS # (AUTO) 9.6 X10'3 (1.8-7.7); NEUTROPHILS % (AUTO) 93.5 % (42-75); PLATELET COUNT 269 X10'3 (140-440); RED BLOOD COUNT 4.39 X10'6 (4.70-6.10); RED CELL DISTRIBUTION WIDTH 17.6 % (11.5-14.5); WHITE BLOOD COUNT 10.2 X10'3 (4.5-11.0)
[2018-01-14 05:00] LABS: ALBUMIN 2.8 G/DL (3.4-5.0); ANION GAP 11 (8-16); BLOOD UREA NITROGEN 33 MG/DL (7-18); BUN/CREATININE RATIO 23.1 (5.4-32.0); CALCIUM 9.2 MG/DL (8.5-10.1); CHLORIDE 101 MMOL/L (99-107); CREATININE 1.43 MG/DL (0.60-1.10); GLUCOSE 144 MG/DL (70-104); MAGNESIUM 2.3 MG/DL (1.5-2.4); POTASSIUM 4.7 MMOL/L (3.5-5.1); SODIUM 135 MMOL/L (135-145); TOTAL CARBON DIOXIDE 23.5 MMOL/L (24-32); eGFR 48 ML/MIN
[2018-01-14 05:19] LABS: ANISOCYTOSIS 2+; PLATELET ESTIMATE NORMAL; TOTAL CELLS COUNTED 100
[2018-01-14 05:20] LABS: ELLIPTOCYTES 1+; LARGE PLATELETS FEW
[2018-01-14] MEDS: CefTRIAXone/D5W-Rocephin 1gm 50 ML IV SCH (07:40)
[2018-01-14] MEDS: methylPREDNISolone sod succ 125mg/2ml vial IV SCH ×2 (07:41→20:16)
[2018-01-14 08:00] VITALS: BP 171/87
[2018-01-14] MEDS: K and/or MAG REPLACEMENT MC SCH (08:00)
[2018-01-14] MEDS: heparin, porcine 5000 units/ml vial SQ SCH ×2 (08:00→20:17)
[2018-01-14 11:00] VITALS: BP 149/105
[2018-01-14] MEDS: amLODIPine 5mg tablet PO SCH (14:00)
[2018-01-14 19:00] VITALS: BP 156/75
[2018-01-14] MEDS: lactobacillus rhamnosus 10,000 MMU CELLS/CAPSULE PO SCH (20:00)
[2018-01-15] VITALS: BP 167/84
[2018-01-15] MEDS: albuterol 2.5 MG/3 ML nebule NEB SCH ×5 (02:56→19:18)
[2018-01-15 05:26] LABS: ALBUMIN 2.7 G/DL (3.4-5.0); ANION GAP 10 (8-16); BLOOD UREA NITROGEN 38 MG/DL (7-18); BUN/CREATININE RATIO 27.3 (5.4-32.0); CHLORIDE 101 MMOL/L (99-107); CREATININE 1.39 MG/DL (0.60-1.10); GLUCOSE 146 MG/DL (70-104); MAGNESIUM 2.5 MG/DL (1.5-2.4); POTASSIUM 4.6 MMOL/L (3.5-5.1); SODIUM 135 MMOL/L (135-145); eGFR 50 ML/MIN
[2018-01-15 05:58] LABS: BASOPHILS % (AUTO) 0 % (0-1); EOSINOPHILS % (AUTO) 0 % (0-6); HEMATOCRIT 35.6 % (42.0-52.0); HEMOGLOBIN 11.6 g/dl (14.0-17.9); LYMPHOCYTES # (AUTO) 0.4 X10'3 (1.1-4.8); LYMPHOCYTES % (AUTO) 2.7 % (21-51); MEAN CORPUSCULAR HEMOGLOBIN 27.3 PG (27.0-31.0); MEAN CORPUSCULAR HGB CONC 32.7 % (33.0-36.5); MEAN CORPUSCULAR VOLUME 83.5 FL (78-98); MEAN PLATELET VOLUME 9.9 FL (7.4-10.4); MONOCYTES # (AUTO) 0.4 X10'3 (0-0.9); MONOCYTES % (AUTO) 3.2 % (2-12); NEUTROPHILS % (AUTO) 94.1 % (42-75); PLATELET COUNT 266 X10'3 (140-440); RED BLOOD COUNT 4.26 X10'6 (4.70-6.10); RED CELL DISTRIBUTION WIDTH 17.8 % (11.5-14.5); WHITE BLOOD COUNT 13.8 X10'3 (4.5-11.0)
[2018-01-15] MEDS: methylPREDNISolone sod succ 125mg/2ml vial IV SCH ×2 (07:46→20:00)
[2018-01-15] MEDS: heparin, porcine 5000 units/ml vial SQ SCH ×2 (07:46→19:58)
[2018-01-15] MEDS: K and/or MAG REPLACEMENT MC SCH (07:47)
[2018-01-15] MEDS: lactobacillus rhamnosus 10,000 MMU CELLS/CAPSULE PO SCH ×2 (07:47→20:03)
[2018-01-15] MEDS: CefTRIAXone/D5W-Rocephin 1gm 50 ML IV SCH (07:47)
[2018-01-15] MEDS: amLODIPine 5mg tablet PO SCH (07:47)
[2018-01-15 08:00] VITALS: BP 162/90
[2018-01-15 12:00] VITALS: BP 140/78
[2018-01-15 19:00] VITALS: BP 158/68
[2018-01-16] VITALS: BP 165/100
[2018-01-16] MEDS: albuterol 2.5 MG/3 ML nebule NEB SCH ×4 (00:09→11:38)
[2018-01-16 05:11] LABS: BASOPHILS % (AUTO) 0 % (0-1); EOSINOPHILS # (AUTO) 0.2 X10'3 (0-0.9); EOSINOPHILS % (AUTO) 1.5 % (0-6); HEMATOCRIT 37.2 % (42.0-52.0); HEMOGLOBIN 12.3 g/dl (14.0-17.9); LYMPHOCYTES # (AUTO) 0.4 X10'3 (1.1-4.8); LYMPHOCYTES % (AUTO) 2.7 % (21-51); MEAN CORPUSCULAR HEMOGLOBIN 27.4 PG (27.0-31.0); MEAN CORPUSCULAR VOLUME 83.3 FL (78-98); MEAN PLATELET VOLUME 9.3 FL (7.4-10.4); MONOCYTES # (AUTO) 0.4 X10'3 (0-0.9); MONOCYTES % (AUTO) 2.6 % (2-12); NEUTROPHILS # (AUTO) 14.8 X10'3 (1.8-7.7); NEUTROPHILS % (AUTO) 93.2 % (42-75); PLATELET COUNT 319 X10'3 (140-440); RED BLOOD COUNT 4.46 X10'6 (4.70-6.10); RED CELL DISTRIBUTION WIDTH 17.4 % (11.5-14.5); WHITE BLOOD COUNT 15.9 X10'3 (4.5-11.0)
[2018-01-16 05:22] LABS: ALBUMIN 2.9 G/DL (3.4-5.0); ANION GAP 13 (8-16); BLOOD UREA NITROGEN 40 MG/DL (7-18); CALCIUM 8.9 MG/DL (8.5-10.1); CHLORIDE 99 MMOL/L (99-107); CREATININE 1.48 MG/DL (0.60-1.10); GLUCOSE 133 MG/DL (70-104); MAGNESIUM 2.1 MG/DL (1.5-2.4); POTASSIUM 4.5 MMOL/L (3.5-5.1); SODIUM 135 MMOL/L (135-145); TOTAL CARBON DIOXIDE 23.2 MMOL/L (24-32); eGFR 47 ML/MIN
[2018-01-16 07:00] VITALS: BP 161/87
[2018-01-16] MEDS: K and/or MAG REPLACEMENT MC SCH (07:10)
[2018-01-16] MEDS: CefTRIAXone/D5W-Rocephin 1gm 50 ML IV SCH (08:18)
[2018-01-16] MEDS: lactobacillus rhamnosus 10,000 MMU CELLS/CAPSULE PO SCH (08:18)
[2018-01-16] MEDS: methylPREDNISolone sod succ 125mg/2ml vial IV SCH (08:18)
[2018-01-16] MEDS: amLODIPine 5mg tablet PO SCH (08:18)
[2018-01-16] MEDS: heparin, porcine 5000 units/ml vial SQ SCH (08:19)
[2018-01-16 11:32] VITALS: BP 142/77
[2018-01-16] MEDS ORDERED: PRED10TA23 PO (14:29)
[2018-01-16] MEDS ORDERED: CEPH500C5 PO (14:29)
== END 2018-01-16 15:03 | disposition home or self-care (01) | DRG 191 ==
LOC: ER 06:54 → ED HOLD 09:17 → EDBEDREQ 14:18 → SUR 3N 15:09
PROVIDERS: ADMIT Internal Medicine; ATTEND Internal Medicine
DX: J44.1 Chronic obstructive pulmonary disease with (acute) exacerbation (principal); J96.10 Chronic respiratory failure, unspecified whether with hypoxia or hypercapnia; I12.9 Hypertensive chronic kidney disease with stage 1 through stage 4 chronic kidney disease, or unspecified chronic kidney disease; D72.828 Other elevated white blood cell count; T38.0X5A Adverse effect of glucocorticoids and synthetic analogues, initial encounter; E78.5 Hyperlipidemia, unspecified; M54.9 Dorsalgia, unspecified; G89.29 Other chronic pain; N18.3 Chronic kidney disease, stage 3 (moderate); J20.9 Acute bronchitis, unspecified; J44.0 Chronic obstructive pulmonary disease with (acute) lower respiratory infection; Z99.81 Dependence on supplemental oxygen; Y92.89 Other specified places as the place of occurrence of the external cause
CPT/HCPCS: 36415; 36600; 71046; 80048; 80053; 81001; 82803; 83605; 83735; 83880; 84145; 84484; 85018; 85025; 85610; 85730; 87040; 87070; 93005; 93306; 94640; 94760; 99285; J0696; J1644; J2930; J7030; J7614

== ENCOUNTER 2018-02-03 08:22 | Emergency (ER) | payer MEDICARE ==
[~2018-02-03] VITALS: Ht 188 cm; Wt 45.5 kg
[~2018-02-03 08:22] MED LIST changes: -AZIT-63 PO; -BENZ-16 PO; -CHOL400T57 CORPAK; -MECL-111 PO; +PRED10TA23 PO; -PRED5TAB PO
[2018-02-03] MEDS ORDERED: ipratropium/albuterol 3ml nebule NEB ONE (08:35)
[2018-02-03] MEDS ORDERED: methylPREDNISolone sod succ 125mg/2ml vial IV ONE (08:35)
[2018-02-03 09:04] LABS: BASOPHILS # (AUTO) 0.1 X10'3 (0-0.2); BASOPHILS % (AUTO) 0.7 % (0-1); EOSINOPHILS # (AUTO) 0.6 X10'3 (0-0.9); EOSINOPHILS % (AUTO) 4.2 % (0-6); HEMATOCRIT 34.9 % (42.0-52.0); HEMOGLOBIN 11.6 g/dl (14.0-17.9); LYMPHOCYTES # (AUTO) 0.9 X10'3 (1.1-4.8); LYMPHOCYTES % (AUTO) 6.7 % (21-51); MEAN CORPUSCULAR HEMOGLOBIN 27.8 PG (27.0-31.0); MEAN CORPUSCULAR HGB CONC 33.3 % (33.0-36.5); MEAN CORPUSCULAR VOLUME 83.4 FL (78-98); MEAN PLATELET VOLUME 8.3 FL (7.4-10.4); MONOCYTES # (AUTO) 0.6 X10'3 (0-0.9); MONOCYTES % (AUTO) 4.6 % (2-12); NEUTROPHILS # (AUTO) 11.1 X10'3 (1.8-7.7); NEUTROPHILS % (AUTO) 83.8 % (42-75); PLATELET COUNT 293 X10'3 (140-440); RED BLOOD COUNT 4.18 X10'6 (4.70-6.10); RED CELL DISTRIBUTION WIDTH 18.2 % (11.5-14.5); WHITE BLOOD COUNT 13.3 X10'3 (4.5-11.0)
[2018-02-03 09:19] LABS: ALANINE AMINOTRANSFERASE 30 U/L (12-78); ALBUMIN 2.9 G/DL (3.4-5.0); ALBUMIN/GLOBULIN RATIO 0.9 (1.1-1.5); ALKALINE PHOSPHATASE 67 IU/L (46-116); ANION GAP 10 (8-16); ASPARTATE AMINO TRANSFERASE 22 U/L (10-37); BILIRUBIN,TOTAL 0.4 MG/DL (0.1-1.0); BLOOD UREA NITROGEN 45 MG/DL (7-18); BUN/CREATININE RATIO 28.8 (5.4-32.0); CALCIUM 9.1 MG/DL (8.5-10.1); CHLORIDE 100 MMOL/L (99-107); CREATININE 1.56 MG/DL (0.60-1.10); GLUCOSE 102 MG/DL (70-104); POTASSIUM 4.7 MMOL/L (3.5-5.1); SODIUM 137 MMOL/L (135-145); TOTAL CARBON DIOXIDE 27.4 MMOL/L (24-32); TOTAL PROTEIN 6.2 G/DL (6.4-8.2); eGFR 44 ML/MIN
[2018-02-03 09:28] VITALS: BP 127/73
== END 2018-02-03 09:32 | disposition home or self-care (01) ==
LOC: ER 08:22
DX: J44.1 Chronic obstructive pulmonary disease with (acute) exacerbation (principal); E78.00 Pure hypercholesterolemia, unspecified; I10 Essential (primary) hypertension; G89.29 Other chronic pain; Z98.890 Other specified postprocedural states; Z79.82 Long term (current) use of aspirin; Z79.899 Other long term (current) drug therapy
CPT/HCPCS: 36415; 80053; 85025; 93005; 94640; 94760; 96374; 99285; J2930

== ENCOUNTER 2018-02-12 08:46 | Emergency (ER) | payer MEDICARE ==
[~2018-02-12] VITALS: Ht 188 cm; Wt 100.0 kg
[~2018-02-12 08:46] MED LIST changes: -GUAI10SY2 PO
[2018-02-12] MEDS ORDERED: methylPREDNISolone sod succ 125mg/2ml vial IV ONE (09:10)
[2018-02-12] MEDS ORDERED: ipratropium/albuterol 3ml nebule NEB ONE (09:10)
[2018-02-12] MEDS ORDERED: diltiazem 5mg/ml 5ml inj. IV ONE (09:10)
[2018-02-12] MEDS ORDERED: cloNIDine 0.1 mg tablet PO ONE (09:15)
[2018-02-12 09:30] LABS: BASOPHILS % (AUTO) 0.4 % (0-1); EOSINOPHILS # (AUTO) 0.4 X10'3 (0-0.9); EOSINOPHILS % (AUTO) 3.3 % (0-6); HEMATOCRIT 36.5 % (42.0-52.0); LYMPHOCYTES # (AUTO) 0.5 X10'3 (1.1-4.8); LYMPHOCYTES % (AUTO) 4.1 % (21-51); MEAN CORPUSCULAR HEMOGLOBIN 27.6 PG (27.0-31.0); MEAN CORPUSCULAR VOLUME 83.7 FL (78-98); MEAN PLATELET VOLUME 8.4 FL (7.4-10.4); MONOCYTES # (AUTO) 0.7 X10'3 (0-0.9); NEUTROPHILS # (AUTO) 11.5 X10'3 (1.8-7.7); NEUTROPHILS % (AUTO) 87.2 % (42-75); PLATELET COUNT 313 X10'3 (140-440); RED BLOOD COUNT 4.36 X10'6 (4.70-6.10); RED CELL DISTRIBUTION WIDTH 17.9 % (11.5-14.5); WHITE BLOOD COUNT 13.2 X10'3 (4.5-11.0)
[2018-02-12 09:37] LABS: INR 0.9 INR; PARTIAL THROMBOPLASTIN TIME 24 SECONDS (22-32); PROTHROMBIN TIME 9.1 SECONDS (9.0-12.0)
[2018-02-12 09:42] LABS: ALANINE AMINOTRANSFERASE 29 U/L (12-78); ALBUMIN 2.9 G/DL (3.4-5.0); ALBUMIN/GLOBULIN RATIO 0.8 (1.1-1.5); ALKALINE PHOSPHATASE 71 IU/L (46-116); ANION GAP 11 (8-16); ASPARTATE AMINO TRANSFERASE 18 U/L (10-37); BILIRUBIN,TOTAL 0.4 MG/DL (0.1-1.0); BLOOD UREA NITROGEN 27 MG/DL (7-18); BUN/CREATININE RATIO 19.4 (5.4-32.0); CALCIUM 8.6 MG/DL (8.5-10.1); CHLORIDE 100 MMOL/L (99-107); CREATININE 1.39 MG/DL (0.60-1.10); GLUCOSE 103 MG/DL (70-104); POTASSIUM 3.7 MMOL/L (3.5-5.1); SODIUM 139 MMOL/L (135-145); TOTAL CARBON DIOXIDE 28.2 MMOL/L (24-32); TOTAL PROTEIN 6.6 G/DL (6.4-8.2); eGFR 50 ML/MIN
[2018-02-12] MEDS ORDERED: WARF5TAB PO (10:03)
[2018-02-12] MEDS ORDERED: APIX5TAB3 PO (10:03)
[2018-02-12 10:25] VITALS: BP 140/73
== END 2018-02-12 10:36 | disposition home or self-care (01) ==
LOC: ER 08:47
DX: J44.1 Chronic obstructive pulmonary disease with (acute) exacerbation (principal); I10 Essential (primary) hypertension; E78.00 Pure hypercholesterolemia, unspecified; G89.29 Other chronic pain; Z79.82 Long term (current) use of aspirin; Z79.899 Other long term (current) drug therapy
CPT/HCPCS: 36415; 71045; 80053; 83880; 84484; 85025; 85610; 85730; 93005; 94640; 94760; 96374; 99285; J2930

== ENCOUNTER 2018-02-21 13:12 | Emergency (ER) | payer MEDICARE ==
[~2018-02-21] VITALS: Ht 188 cm; Wt 101.0 kg
[~2018-02-21 13:12] MED LIST changes: +APIX5TAB3 PO; -PRED10TA23 PO; +WARF5TAB PO
[2018-02-21] MEDS ORDERED: methylPREDNISolone sod succ 125mg/2ml vial IV ONE (14:30)
[2018-02-21] MEDS ORDERED: predniSONE 20 mg tablet PO SCH (14:40)
[2018-02-21 15:18] VITALS: BP 117/65
[2018-02-21] MEDS ORDERED: MECL-111 PO (15:38)
[2018-02-21] MEDS ORDERED: LOSA50TA3 PO (15:38)
[2018-02-21] MEDS ORDERED: AZIT-63 PO (15:41)
[2018-02-21] MEDS ORDERED: ZAR2.5T PO (15:42)
[2018-02-21] MEDS ORDERED: DILT180C53 PO (15:43)
[2018-02-21] MEDS ORDERED: GARL1TAB2 PO (15:45)
[2018-02-21] MEDS ORDERED: PRED10TA23 PO (15:46)
== END 2018-02-21 15:54 | disposition home or self-care (01) ==
LOC: ER 13:13
DX: J44.1 Chronic obstructive pulmonary disease with (acute) exacerbation (principal); I10 Essential (primary) hypertension; E78.00 Pure hypercholesterolemia, unspecified; J44.9 Chronic obstructive pulmonary disease, unspecified; G89.29 Other chronic pain; M54.9 Dorsalgia, unspecified
CPT/HCPCS: 71045; 96374; 99284; J2930; J7512

== ENCOUNTER 2018-03-05 14:07 | Emergency (ER) | payer MEDICARE ==
[~2018-03-05] VITALS: Ht 188 cm; Wt 94.0 kg
[~2018-03-05 14:07] MED LIST changes: -AMLO10TA PO; -ASPI-611 PO; +AZIT-63 PO; +DILT180C53 PO; +GARL1TAB2 PO; +LOSA50TA3 PO; +MECL-111 PO; +PRED10TA23 PO; -THEO300T22 PO; -WARF5TAB PO; +ZAR2.5T PO
[2018-03-05] MEDS ORDERED: ipratropium/albuterol 3ml nebule NEB ONE (14:45)
[2018-03-05] MEDS ORDERED: methylPREDNISolone sod succ 125mg/2ml vial IV ONE (14:45)
[2018-03-05 15:24] LABS: BASOPHILS # (AUTO) 0.1 X10'3 (0-0.2); BASOPHILS % (AUTO) 0.5 % (0-1); EOSINOPHILS # (AUTO) 0.2 X10'3 (0-0.9); EOSINOPHILS % (AUTO) 1.1 % (0-6); HEMATOCRIT 37.9 % (42.0-52.0); HEMOGLOBIN 12.2 g/dl (14.0-17.9); LYMPHOCYTES # (AUTO) 0.8 X10'3 (1.1-4.8); LYMPHOCYTES % (AUTO) 6.2 % (21-51); MEAN CORPUSCULAR HEMOGLOBIN 27.6 PG (27.0-31.0); MEAN CORPUSCULAR HGB CONC 32.3 % (33.0-36.5); MEAN CORPUSCULAR VOLUME 85.4 FL (78-98); MEAN PLATELET VOLUME 8.4 FL (7.4-10.4); MONOCYTES # (AUTO) 0.1 X10'3 (0-0.9); MONOCYTES % (AUTO) 0.6 % (2-12); NEUTROPHILS # (AUTO) 12.5 X10'3 (1.8-7.7); NEUTROPHILS % (AUTO) 91.6 % (42-75); PLATELET COUNT 302 X10'3 (140-440); RED BLOOD COUNT 4.44 X10'6 (4.70-6.10); RED CELL DISTRIBUTION WIDTH 17.7 % (11.5-14.5); WHITE BLOOD COUNT 13.7 X10'3 (4.5-11.0)
[2018-03-05 15:43] LABS: ALANINE AMINOTRANSFERASE 29 U/L (12-78); ALBUMIN 2.9 G/DL (3.4-5.0); ALBUMIN/GLOBULIN RATIO 0.8 (1.1-1.5); ALKALINE PHOSPHATASE 74 IU/L (46-116); ANION GAP 12 (8-16); ASPARTATE AMINO TRANSFERASE 16 U/L (10-37); BILIRUBIN,TOTAL 0.4 MG/DL (0.1-1.0); BLOOD UREA NITROGEN 28 MG/DL (7-18); BUN/CREATININE RATIO 18.7 (5.4-32.0); CALCIUM 8.6 MG/DL (8.5-10.1); CHLORIDE 105 MMOL/L (99-107); GLUCOSE 140 MG/DL (70-104); POTASSIUM 4.7 MMOL/L (3.5-5.1); SODIUM 142 MMOL/L (135-145); TOTAL CARBON DIOXIDE 24.8 MMOL/L (24-32); TOTAL PROTEIN 6.5 G/DL (6.4-8.2); eGFR 46 ML/MIN
[2018-03-05 15:59] VITALS: BP 121/68
== END 2018-03-05 16:01 | disposition home or self-care (01) ==
LOC: ER 14:08
DX: J44.1 Chronic obstructive pulmonary disease with (acute) exacerbation (principal); E78.00 Pure hypercholesterolemia, unspecified; I10 Essential (primary) hypertension; G89.29 Other chronic pain; Z98.890 Other specified postprocedural states; Z79.899 Other long term (current) drug therapy; Z99.81 Dependence on supplemental oxygen
CPT/HCPCS: 36415; 71045; 80053; 85025; 93005; 94640; 94760; 96374; 99285; J2930

== ENCOUNTER 2018-03-15 10:34 | Emergency (ER) | payer MEDICARE ==
[~2018-03-15] VITALS: Ht 188 cm; Wt 101.4 kg
[2018-03-15 11:21] LABS: BASOPHILS # (AUTO) 0.1 X10'3 (0-0.2); BASOPHILS % (AUTO) 0.4 % (0-1); EOSINOPHILS # (AUTO) 0.2 X10'3 (0-0.9); EOSINOPHILS % (AUTO) 1.6 % (0-6); HEMOGLOBIN 12.6 g/dl (14.0-17.9); LYMPHOCYTES # (AUTO) 0.4 X10'3 (1.1-4.8); LYMPHOCYTES % (AUTO) 2.7 % (21-51); MEAN CORPUSCULAR HEMOGLOBIN 27.7 PG (27.0-31.0); MEAN CORPUSCULAR HGB CONC 33.1 % (33.0-36.5); MEAN CORPUSCULAR VOLUME 83.7 FL (78-98); MEAN PLATELET VOLUME 8.6 FL (7.4-10.4); MONOCYTES # (AUTO) 0.4 X10'3 (0-0.9); MONOCYTES % (AUTO) 2.4 % (2-12); NEUTROPHILS % (AUTO) 92.9 % (42-75); PLATELET COUNT 300 X10'3 (140-440); RED BLOOD COUNT 4.54 X10'6 (4.70-6.10); WHITE BLOOD COUNT 15.1 X10'3 (4.5-11.0)
[2018-03-15 11:37] LABS: ALANINE AMINOTRANSFERASE 28 U/L (12-78); ALBUMIN 2.9 G/DL (3.4-5.0); ALBUMIN/GLOBULIN RATIO 0.7 (1.1-1.5); ALKALINE PHOSPHATASE 73 IU/L (46-116); ANION GAP 9 (8-16); ASPARTATE AMINO TRANSFERASE 19 U/L (10-37); BILIRUBIN,TOTAL 0.6 MG/DL (0.1-1.0); BLOOD UREA NITROGEN 29 MG/DL (7-18); BUN/CREATININE RATIO 21.2 (5.4-32.0); CALCIUM 8.8 MG/DL (8.5-10.1); CHLORIDE 99 MMOL/L (99-107); CREATININE 1.37 MG/DL (0.60-1.10); GLUCOSE 111 MG/DL (70-104); PARTIAL THROMBOPLASTIN TIME 28 SECONDS (22-32); POTASSIUM 3.6 MMOL/L (3.5-5.1); PROTHROMBIN TIME 9.7 SECONDS (9.0-12.0); SODIUM 136 MMOL/L (135-145); TOTAL CARBON DIOXIDE 27.8 MMOL/L (24-32); TOTAL PROTEIN 6.9 G/DL (6.4-8.2); eGFR 51 ML/MIN
[2018-03-15] MEDS ORDERED: albuterol 2.5 MG/3 ML nebule CONTNEB PRN (12:15)
[2018-03-15] MEDS ORDERED: ipratropium 0.5 MG/2.5ML nebule IH ONE (12:15)
[2018-03-15 12:46] LABS: CLARITY,URINE CLEAR (Clear); COLOR,URINE STRAW (Yellow); GLUCOSE, URINE NEGATIVE (Neg); KETONES,URINE NEGATIVE (Neg); LEUKOCYTE ESTERASE ,URINE NEGATIVE (Neg); NITRITES, URINE NEGATIVE (Neg); OCCULT BLOOD,URINE NEGATIVE (Neg); PH,URINE 5.5 (4.8-8.0); PROTEIN,URINE NEGATIVE (Neg); UROBILINOGEN,URINE 0.2 E.U/dL (0.2-1.0)
[2018-03-15 12:47] LABS: UA COLLECTION TYPE CLN CATCH MIDSTREAM
[2018-03-15 15:09] VITALS: BP 140/64
== END 2018-03-15 15:00 | disposition home or self-care (01) ==
LOC: ER 10:35
DX: J44.1 Chronic obstructive pulmonary disease with (acute) exacerbation (principal); R60.0 Localized edema; E78.00 Pure hypercholesterolemia, unspecified; I10 Essential (primary) hypertension; G89.29 Other chronic pain; Z98.890 Other specified postprocedural states; Z87.891 Personal history of nicotine dependence; Z79.899 Other long term (current) drug therapy
CPT/HCPCS: 36415; 71045; 80053; 81003; 83605; 83880; 84145; 84484; 85025; 85610; 85730; 87040; 93005; 94640; 94644; 94760; 99285

== ENCOUNTER 2018-03-17 14:32 | Emergency (ER) | payer MEDICARE ==
[~2018-03-17] VITALS: Ht 188 cm; Wt 101.4 kg
[2018-03-17] MEDS ORDERED: ipratropium/albuterol 3ml nebule NEB ONE (17:50)
[2018-03-17] MEDS ORDERED: methylPREDNISolone sod succ 125mg/2ml vial IV ONE (17:50)
[2018-03-17 18:16] VITALS: BP 147/65
[2018-03-17 18:18] LABS: ALANINE AMINOTRANSFERASE 25 U/L (12-78); ALBUMIN 2.7 G/DL (3.4-5.0); ALBUMIN/GLOBULIN RATIO 0.7 (1.1-1.5); ALKALINE PHOSPHATASE 70 IU/L (46-116); ANION GAP 9 (8-16); ASPARTATE AMINO TRANSFERASE 16 U/L (10-37); BILIRUBIN,TOTAL 0.5 MG/DL (0.1-1.0); BLOOD UREA NITROGEN 38 MG/DL (7-18); BUN/CREATININE RATIO 22.6 (5.4-32.0); CALCIUM 9.4 MG/DL (8.5-10.1); CHLORIDE 100 MMOL/L (99-107); CREATININE 1.68 MG/DL (0.60-1.10); GLUCOSE 114 MG/DL (70-104); POTASSIUM 3.6 MMOL/L (3.5-5.1); SODIUM 137 MMOL/L (135-145); TOTAL CARBON DIOXIDE 28.3 MMOL/L (24-32); TOTAL PROTEIN 6.5 G/DL (6.4-8.2); eGFR 40 ML/MIN
[2018-03-17 18:20] LABS: BASOPHILS % (AUTO) 0.2 % (0-1); EOSINOPHILS # (AUTO) 0.3 X10'3 (0-0.9); EOSINOPHILS % (AUTO) 1.8 % (0-6); HEMATOCRIT 34.6 % (42.0-52.0); HEMOGLOBIN 11.4 g/dl (14.0-17.9); LYMPHOCYTES # (AUTO) 0.7 X10'3 (1.1-4.8); LYMPHOCYTES % (AUTO) 4.3 % (21-51); MEAN CORPUSCULAR HEMOGLOBIN 27.8 PG (27.0-31.0); MEAN CORPUSCULAR HGB CONC 33.1 % (33.0-36.5); MEAN PLATELET VOLUME 8.5 FL (7.4-10.4); MONOCYTES # (AUTO) 0.9 X10'3 (0-0.9); MONOCYTES % (AUTO) 5.7 % (2-12); NEUTROPHILS # (AUTO) 13.3 X10'3 (1.8-7.7); PLATELET COUNT 310 X10'3 (140-440); RED BLOOD COUNT 4.11 X10'6 (4.70-6.10); RED CELL DISTRIBUTION WIDTH 16.9 % (11.5-14.5); WHITE BLOOD COUNT 15.1 X10'3 (4.5-11.0)
[2018-03-17] MEDS ORDERED: levoFLOXACIN 250mg tablet PO ONE (19:20)
[2018-03-17] MEDS ORDERED: LEVO500T2 PO (19:22)
== END 2018-03-17 20:01 | disposition home or self-care (01) ==
LOC: ER 15:54
DX: J44.1 Chronic obstructive pulmonary disease with (acute) exacerbation (principal); E78.00 Pure hypercholesterolemia, unspecified; I10 Essential (primary) hypertension; G89.29 Other chronic pain; Z98.890 Other specified postprocedural states; Z79.899 Other long term (current) drug therapy
CPT/HCPCS: 36415; 71045; 80053; 83880; 84484; 85025; 87081; 87502; 87503; 87880; 93005; 94640; 94760; 96374; 99285; J2930

== ENCOUNTER 2018-03-24 09:24 | Emergency (ER) | payer MEDICARE ==
[~2018-03-24] VITALS: Ht 188 cm; Wt 96.8 kg
[~2018-03-24 09:24] MED LIST changes: +LEVO500T2 PO
[2018-03-24] MEDS ORDERED: methylPREDNISolone sod succ 125mg/2ml vial IV ONE (10:15)
[2018-03-24] MEDS ORDERED: albuterol 2.5 MG/3 ML nebule CONTNEB PRN (10:15)
[2018-03-24 10:39] LABS: BASOPHILS % (AUTO) 0 % (0-1); EOSINOPHILS # (AUTO) 0.5 X10'3 (0-0.9); EOSINOPHILS % (AUTO) 3.7 % (0-6); HEMATOCRIT 38.7 % (42.0-52.0); HEMOGLOBIN 12.6 g/dl (14.0-17.9); LYMPHOCYTES # (AUTO) 0.6 X10'3 (1.1-4.8); LYMPHOCYTES % (AUTO) 4.6 % (21-51); MEAN CORPUSCULAR HEMOGLOBIN 27.6 PG (27.0-31.0); MEAN CORPUSCULAR HGB CONC 32.6 % (33.0-36.5); MEAN CORPUSCULAR VOLUME 84.7 FL (78-98); MEAN PLATELET VOLUME 8.4 FL (7.4-10.4); MONOCYTES # (AUTO) 0.6 X10'3 (0-0.9); MONOCYTES % (AUTO) 4.3 % (2-12); NEUTROPHILS # (AUTO) 11.6 X10'3 (1.8-7.7); NEUTROPHILS % (AUTO) 87.4 % (42-75); PLATELET COUNT 319 X10'3 (140-440); RED BLOOD COUNT 4.57 X10'6 (4.70-6.10); RED CELL DISTRIBUTION WIDTH 16.5 % (11.5-14.5); WHITE BLOOD COUNT 13.3 X10'3 (4.5-11.0)
[2018-03-24 10:56] LABS: TOTAL CELLS COUNTED 100
[2018-03-24 10:57] LABS: ANISOCYTOSIS 1+; PLATELET ESTIMATE NORMAL
[2018-03-24 11:07] LABS: ALANINE AMINOTRANSFERASE 26 U/L (12-78); ALBUMIN 2.7 G/DL (3.4-5.0); ALBUMIN/GLOBULIN RATIO 0.6 (1.1-1.5); ALKALINE PHOSPHATASE 72 IU/L (46-116); ANION GAP 11 (8-16); ASPARTATE AMINO TRANSFERASE 17 U/L (10-37); BILIRUBIN,TOTAL 0.4 MG/DL (0.1-1.0); BLOOD UREA NITROGEN 27 MG/DL (7-18); BUN/CREATININE RATIO 16.9 (5.4-32.0); CALCIUM 9.1 MG/DL (8.5-10.1); CHLORIDE 99 MMOL/L (99-107); GLUCOSE 93 MG/DL (70-104); POTASSIUM 3.4 MMOL/L (3.5-5.1); SODIUM 140 MMOL/L (135-145); TOTAL CARBON DIOXIDE 30.3 MMOL/L (24-32); TOTAL PROTEIN 6.9 G/DL (6.4-8.2); eGFR 42 ML/MIN
[2018-03-24 12:29] VITALS: BP 142/96
== END 2018-03-24 12:32 | disposition home or self-care (01) ==
LOC: ER 09:24
DX: J44.1 Chronic obstructive pulmonary disease with (acute) exacerbation (principal); I10 Essential (primary) hypertension; E78.00 Pure hypercholesterolemia, unspecified; G89.29 Other chronic pain; M54.9 Dorsalgia, unspecified
CPT/HCPCS: 36415; 71046; 80053; 83605; 85025; 87040; 93005; 94644; 96374; 99285; J2930; 94640

== ENCOUNTER 2018-03-31 05:39 | Inpatient (IN) | payer MEDICARE ==
[~2018-03-31] VITALS: Ht 185.4 cm; Wt 100.0 kg
[~2018-03-31 05:39] MED LIST changes: -LEVO500T2 PO
[2018-03-31] MEDS ORDERED: ipratropium/albuterol 3ml nebule NEB ONE (05:50)
[2018-03-31] MEDS ORDERED: methylPREDNISolone sod succ 125mg/2ml vial IV ONE (05:50)
[2018-03-31] MEDS ORDERED: albuterol 2.5 MG/3 ML nebule CONTNEB PRN (05:50)
[2018-03-31 06:10] LABS: HEMATOCRIT 37.8 % (42.0-52.0); HEMOGLOBIN 12.4 g/dl (14.0-17.9); MEAN CORPUSCULAR HEMOGLOBIN 27.5 PG (27.0-31.0); MEAN CORPUSCULAR HGB CONC 32.7 % (33.0-36.5); MEAN CORPUSCULAR VOLUME 84.2 FL (78-98); MEAN PLATELET VOLUME 8.3 FL (7.4-10.4); PLATELET COUNT 324 X10'3 (140-440); RED BLOOD COUNT 4.49 X10'6 (4.70-6.10); RED CELL DISTRIBUTION WIDTH 16.2 % (11.5-14.5); WHITE BLOOD COUNT 13.6 X10'3 (4.5-11.0)
[2018-03-31] MEDS ORDERED: magnesium 1gm/100ml D5W IVPB 100 ML IV ONE (06:25)
[2018-03-31] MEDS: normal saline 1000ML IV soln IVB ONE ×2 (06:32→06:48)
[2018-03-31 06:38] LABS: INR 0.9 INR; PARTIAL THROMBOPLASTIN TIME 23 SECONDS (22-32); PROTHROMBIN TIME 9.3 SECONDS (9.0-12.0)
[2018-03-31 06:42] LABS: ALANINE AMINOTRANSFERASE 30 U/L (12-78); ALBUMIN 2.7 G/DL (3.4-5.0); ALBUMIN/GLOBULIN RATIO 0.7 (1.1-1.5); ALKALINE PHOSPHATASE 62 IU/L (46-116); ANION GAP 8 (8-16); ASPARTATE AMINO TRANSFERASE 19 U/L (10-37); BILIRUBIN,TOTAL 0.3 MG/DL (0.1-1.0); BLOOD UREA NITROGEN 31 MG/DL (7-18); BUN/CREATININE RATIO 19.4 (5.4-32.0); CALCIUM 9.1 MG/DL (8.5-10.1); CHLORIDE 102 MMOL/L (99-107); GLUCOSE 87 MG/DL (70-104); POTASSIUM 3.7 MMOL/L (3.5-5.1); SODIUM 142 MMOL/L (135-145); TOTAL CARBON DIOXIDE 32.1 MMOL/L (24-32); TOTAL PROTEIN 6.7 G/DL (6.4-8.2); eGFR 42 ML/MIN
[2018-03-31 06:46] LABS: ANISOCYTOSIS 1+; PLATELET ESTIMATE NORMAL; POLYCHROMASIA 1+; TOTAL CELLS COUNTED 100; TOXIC GRANULATION 1+
[2018-03-31] MEDS ORDERED: levoFLOXACIN-Levaquin 750MG/D5 150 ML IV STA (07:53)
[2018-03-31] MEDS ORDERED: furosemide 10 MG/1 ML 10ml inj IV ONE (08:00)
[2018-03-31] MEDS ORDERED: magnesium 4gm in 100ml NS 100 ML IV PRN (09:00)
[2018-03-31] MEDS ORDERED: magnesium 1gm/100ml D5W IVPB 100 ML IV PRN (09:00)
[2018-03-31] MEDS ORDERED: ondansetron/PF 4mg/2ml inj IV PRN (09:00)
[2018-03-31] MEDS ORDERED: potassium Cl 40MEQ/NS 500ml 500 ML IV PRN ×2 (09:00)
[2018-03-31] MEDS ORDERED: methylPREDNISolone sod succ 125mg/2ml vial IV SCH (09:00)
[2018-03-31] MEDS ORDERED: magnesium Cl slow-release 64mg tablet PO PRN (09:00)
[2018-03-31] MEDS ORDERED: potassium Cl 20 mEq SR tablet PO PRN ×2 (09:00)
[2018-03-31] MEDS ORDERED: magnesium hydroxide 30ml (MOM) UD suspension PO PRN (09:00)
[2018-03-31] MEDS ORDERED: mag hydrox/Alum hydrox/simeth 30ml oral suspension PO PRN (09:00)
[2018-03-31] MEDS ORDERED: HYDROcodone/acetaminophen 5mg/325mg tablet PO PRN (09:00)
[2018-03-31] MEDS ORDERED: morphine 2 MG/ML inj. syringe IV PRN (09:00)
[2018-03-31] MEDS ORDERED: acetaminophen 325mg tablet PO PRN (09:00)
[2018-03-31] MEDS ORDERED: LORazepam 0.5 MG tablet PO PRN (09:00)
[2018-03-31 10:45] LABS: ABG BASE EXCESS 4.6 mmol/L (-2.0-3.0); ABG HCO3 28.1 mmol/L (22.0-26.0); ABG OXYGEN SATURATION 97.3 % (95-98); ABG PCO2 (T) 37.5 mmHg (35.0-48.0); ABG PH (T) 7.492 (7.350-7.450); ABG PO2 (T) 96.2 mmHg (83-108); ALLEN'S TEST Positive; FCOHb 0.9 % (0.5-1.5); FLOW 2 L/min; FMetHb 0.3 % (0.3-1.12); FO2Hb 96.1 % (94-100); TOTAL HEMOGLOBIN 12.8 G/dl (14.0-18.0)
[2018-03-31] MEDS: albuterol 2.5 MG/3 ML nebule NEB SCH ×4 (10:56→23:14)
[2018-03-31] MEDS ORDERED: albuterol 2.5 MG/3 ML nebule NEB SCH (12:00)
[2018-03-31] MEDS ORDERED: metolazone 2.5mg tablet PO ONE (14:15)
[2018-03-31] MEDS ORDERED: diltiazem CD 180mg cap (once-daily) PO ONE (14:15)
[2018-03-31] MEDS ORDERED: losartan 50mg tablet PO ONE (14:15)
[2018-03-31] MEDS ORDERED: montelukast 10mg tablet PO ONE (14:15)
[2018-03-31 18:00] VITALS: BP 140/87
[2018-03-31] MEDS ORDERED: TIOTROPIUM BR IH SCH (20:00)
[2018-03-31] MEDS ORDERED: OLODATEROL HCL IH SCH (20:00)
[2018-03-31] MEDS ORDERED: heparin, porcine 5000 units/ml vial SQ SCH (20:00)
[2018-03-31] MEDS: atorvastatin 20mg tablet PO SCH (20:24)
[2018-03-31] MEDS: apixaban 5mg tablet PO SCH (20:24)
[2018-03-31] MEDS ORDERED: temazepam 15mg capsule PO PRN (21:00)
[2018-03-31 21:30] VITALS: BP 125/76
[2018-04-01] MEDS: albuterol 2.5 MG/3 ML nebule NEB SCH ×6 (03:42→22:59)
[2018-04-01 06:43] VITALS: BP 140/79
[2018-04-01] MEDS: diltiazem CD 180mg cap (once-daily) PO SCH (07:33)
[2018-04-01] MEDS: CefTRIAXone 2gm/D5W 50ml 50 ML IV SCH (07:33)
[2018-04-01] MEDS: apixaban 5mg tablet PO SCH ×2 (07:33→20:13)
[2018-04-01] MEDS: metolazone 2.5mg tablet PO SCH (07:33)
[2018-04-01] MEDS: montelukast 10mg tablet PO SCH (07:34)
[2018-04-01] MEDS: losartan 50mg tablet PO SCH (07:34)
[2018-04-01] MEDS: pantoprazole 40mg Tablet.DR PO SCH (07:35)
[2018-04-01] MEDS: K and/or MAG REPLACEMENT MC SCH (07:50)
[2018-04-01] MEDS ORDERED: methylPREDNISolone sod succ 125mg/2ml vial IV SCH (08:00)
[2018-04-01 08:15] LABS: ALBUMIN 2.5 G/DL (3.4-5.0); ANION GAP 11 (8-16); BLOOD UREA NITROGEN 30 MG/DL (7-18); BUN/CREATININE RATIO 22.2 (5.4-32.0); CALCIUM 8.2 MG/DL (8.5-10.1); CHLORIDE 94 MMOL/L (99-107); CREATININE 1.35 MG/DL (0.60-1.10); GLUCOSE 108 MG/DL (70-104); MAGNESIUM 2.2 MG/DL (1.5-2.4); POTASSIUM 3.5 MMOL/L (3.5-5.1); SODIUM 133 MMOL/L (135-145); TOTAL CARBON DIOXIDE 28.2 MMOL/L (24-32); eGFR 52 ML/MIN
[2018-04-01 08:28] LABS: BASOPHILS % (AUTO) 0.1 % (0-1); EOSINOPHILS # (AUTO) 0.2 X10'3 (0-0.9); EOSINOPHILS % (AUTO) 1.7 % (0-6); HEMATOCRIT 35.1 % (42.0-52.0); HEMOGLOBIN 11.5 g/dl (14.0-17.9); LYMPHOCYTES # (AUTO) 0.7 X10'3 (1.1-4.8); LYMPHOCYTES % (AUTO) 4.6 % (21-51); MEAN CORPUSCULAR HEMOGLOBIN 27.3 PG (27.0-31.0); MEAN CORPUSCULAR HGB CONC 32.8 % (33.0-36.5); MEAN CORPUSCULAR VOLUME 83.3 FL (78-98); MEAN PLATELET VOLUME 8.9 FL (7.4-10.4); MONOCYTES # (AUTO) 0.8 X10'3 (0-0.9); MONOCYTES % (AUTO) 5.5 % (2-12); NEUTROPHILS # (AUTO) 12.5 X10'3 (1.8-7.7); NEUTROPHILS % (AUTO) 88.1 % (42-75); PLATELET COUNT 309 X10'3 (140-440); RED BLOOD COUNT 4.22 X10'6 (4.70-6.10); RED CELL DISTRIBUTION WIDTH 16.3 % (11.5-14.5); WHITE BLOOD COUNT 14.2 X10'3 (4.5-11.0)
[2018-04-01 10:00] VITALS: BP 107/88
[2018-04-01 18:00] VITALS: BP 158/83
[2018-04-01] MEDS: atorvastatin 20mg tablet PO SCH (20:13)
[2018-04-01 22:00] VITALS: BP 114/67
[2018-04-02] MEDS: albuterol 2.5 MG/3 ML nebule NEB SCH ×3 (03:10→12:21)
[2018-04-02 06:00] VITALS: BP 170/78
[2018-04-02 06:18] LABS: BASOPHILS % (AUTO) 0 % (0-1); EOSINOPHILS # (AUTO) 0.3 X10'3 (0-0.9); HEMATOCRIT 35.5 % (42.0-52.0); HEMOGLOBIN 11.7 g/dl (14.0-17.9); LYMPHOCYTES # (AUTO) 0.5 X10'3 (1.1-4.8); LYMPHOCYTES % (AUTO) 3.6 % (21-51); MEAN CORPUSCULAR HEMOGLOBIN 27.5 PG (27.0-31.0); MEAN CORPUSCULAR HGB CONC 32.9 % (33.0-36.5); MEAN CORPUSCULAR VOLUME 83.6 FL (78-98); MEAN PLATELET VOLUME 8.4 FL (7.4-10.4); MONOCYTES % (AUTO) 6.9 % (2-12); NEUTROPHILS # (AUTO) 12.2 X10'3 (1.8-7.7); NEUTROPHILS % (AUTO) 87.5 % (42-75); PLATELET COUNT 293 X10'3 (140-440); RED BLOOD COUNT 4.25 X10'6 (4.70-6.10); RED CELL DISTRIBUTION WIDTH 16.3 % (11.5-14.5); WHITE BLOOD COUNT 13.9 X10'3 (4.5-11.0)
[2018-04-02 06:46] LABS: ALBUMIN 2.5 G/DL (3.4-5.0); ANION GAP 9 (8-16); BLOOD UREA NITROGEN 41 MG/DL (7-18); BUN/CREATININE RATIO 29.1 (5.4-32.0); CHLORIDE 94 MMOL/L (99-107); CREATININE 1.41 MG/DL (0.60-1.10); GLUCOSE 104 MG/DL (70-104); MAGNESIUM 2.3 MG/DL (1.5-2.4); POTASSIUM 3.9 MMOL/L (3.5-5.1); SODIUM 133 MMOL/L (135-145); TOTAL CARBON DIOXIDE 30.3 MMOL/L (24-32); eGFR 49 ML/MIN
[2018-04-02] MEDS: losartan 50mg tablet PO SCH (07:31)
[2018-04-02] MEDS: montelukast 10mg tablet PO SCH (07:31)
[2018-04-02] MEDS: apixaban 5mg tablet PO SCH (07:32)
[2018-04-02] MEDS: pantoprazole 40mg Tablet.DR PO SCH (07:32)
[2018-04-02] MEDS: CefTRIAXone 2gm/D5W 50ml 50 ML IV SCH (07:32)
[2018-04-02] MEDS: diltiazem CD 180mg cap (once-daily) PO SCH (07:32)
[2018-04-02] MEDS: metolazone 2.5mg tablet PO SCH (07:46)
[2018-04-02] MEDS ORDERED: methylPREDNISolone sod succ/PF 40mg inj. IV SCH (08:00)
[2018-04-02] MEDS: K and/or MAG REPLACEMENT MC SCH (08:00)
[2018-04-02 10:00] VITALS: BP 135/81
[2018-04-02] MEDS ORDERED: PRED5TAB PO (13:11)
[2018-04-02] MEDS ORDERED: CEFD300C3 PO (13:18)
[2018-04-02] MEDS ORDERED: lactobacillus rhamnosus 10,000 MMU CELLS/CAPSULE PO SCH (20:00)
== END 2018-04-02 14:40 | disposition home or self-care (01) | DRG 871 ==
LOC: ER 05:40 → ED HOLD 09:00 → ORTHO 4S 11:35
PROVIDERS: ADMIT Internal Medicine; ATTEND Internal Medicine
DX: A41.9 Sepsis, unspecified organism (principal); J96.00 Acute respiratory failure, unspecified whether with hypoxia or hypercapnia; J44.1 Chronic obstructive pulmonary disease with (acute) exacerbation; J84.9 Interstitial pulmonary disease, unspecified; I12.9 Hypertensive chronic kidney disease with stage 1 through stage 4 chronic kidney disease, or unspecified chronic kidney disease; N18.3 Chronic kidney disease, stage 3 (moderate); E78.00 Pure hypercholesterolemia, unspecified; E78.5 Hyperlipidemia, unspecified; I25.10 Atherosclerotic heart disease of native coronary artery without angina pectoris; G89.29 Other chronic pain; M54.9 Dorsalgia, unspecified; I48.91 Unspecified atrial fibrillation; J84.10 Pulmonary fibrosis, unspecified; Z77.090 Contact with and (suspected) exposure to asbestos; Z99.81 Dependence on supplemental oxygen; Z79.52 Long term (current) use of systemic steroids; Z79.899 Other long term (current) drug therapy; Z87.891 Personal history of nicotine dependence
CPT/HCPCS: 36415; 36600; 71045; 80048; 80053; 82803; 83605; 83735; 83880; 84145; 84484; 85018; 85025; 85610; 85730; 87040; 87070; 93005; 94640; 94644; 94760; 96365; 96366; 96367; 96375; 97162; 99285; G0378; J0696; J1940; J1956; J2920; J2930

== ENCOUNTER 2018-04-15 13:15 | Emergency (ER) | payer MEDICARE ==
[~2018-04-15] VITALS: Ht 188 cm; Wt 100.0 kg
[~2018-04-15 13:15] MED LIST changes: +CEFD300C3 PO; +PRED5TAB PO
[2018-04-15] MEDS ORDERED: methylPREDNISolone sod succ 125mg/2ml vial IV ONE (13:30)
[2018-04-15] MEDS ORDERED: ipratropium/albuterol 3ml nebule NEB ONE (13:30)
[2018-04-15 14:34] VITALS: BP 130/82
== END 2018-04-15 14:35 | disposition home or self-care (01) ==
LOC: ER 13:16
DX: J44.1 Chronic obstructive pulmonary disease with (acute) exacerbation (principal); I48.91 Unspecified atrial fibrillation; E78.00 Pure hypercholesterolemia, unspecified; I10 Essential (primary) hypertension; G89.29 Other chronic pain; Z98.890 Other specified postprocedural states; Z79.899 Other long term (current) drug therapy
CPT/HCPCS: 93005; 94640; 94760; 96374; 99284; J2930

== ENCOUNTER 2018-04-21 13:51 | Inpatient (IN) | payer MEDICARE ==
[~2018-04-21] VITALS: Ht 188 cm; Wt 100.0 kg
[~2018-04-21 13:51] MED LIST changes: -AZIT-63 PO; -LOSA50TA21 PO
[2018-04-21] MEDS ORDERED: ipratropium/albuterol 3ml nebule NEB ONE (14:25)
[2018-04-21] MEDS ORDERED: methylPREDNISolone sod succ 125mg/2ml vial IV ONE ×2 (14:25→16:00)
[2018-04-21 14:34] LABS: BASOPHILS # (AUTO) 0.1 X10'3 (0-0.2); BASOPHILS % (AUTO) 0.5 % (0-1); EOSINOPHILS # (AUTO) 0.3 X10'3 (0-0.9); EOSINOPHILS % (AUTO) 2.3 % (0-6); HEMATOCRIT 36.7 % (42.0-52.0); HEMOGLOBIN 12.1 g/dl (14.0-17.9); LYMPHOCYTES # (AUTO) 0.4 X10'3 (1.1-4.8); LYMPHOCYTES % (AUTO) 3.1 % (21-51); MEAN CORPUSCULAR HEMOGLOBIN 27.1 PG (27.0-31.0); MEAN CORPUSCULAR HGB CONC 32.8 % (33.0-36.5); MEAN CORPUSCULAR VOLUME 82.5 FL (78-98); MEAN PLATELET VOLUME 8.3 FL (7.4-10.4); MONOCYTES # (AUTO) 0.4 X10'3 (0-0.9); MONOCYTES % (AUTO) 2.6 % (2-12); NEUTROPHILS # (AUTO) 12.7 X10'3 (1.8-7.7); NEUTROPHILS % (AUTO) 91.5 % (42-75); PLATELET COUNT 329 X10'3 (140-440); RED BLOOD COUNT 4.45 X10'6 (4.70-6.10); RED CELL DISTRIBUTION WIDTH 16.8 % (11.5-14.5); WHITE BLOOD COUNT 13.9 X10'3 (4.5-11.0)
[2018-04-21 14:58] LABS: PARTIAL THROMBOPLASTIN TIME 27 SECONDS (22-32)
[2018-04-21 15:10] LABS: ANION GAP 10 (8-16); BLOOD UREA NITROGEN 31 MG/DL (7-18); BUN/CREATININE RATIO 16.3 (5.4-32.0); CALCIUM 9.2 MG/DL (8.5-10.1); CHLORIDE 99 MMOL/L (99-107); GLUCOSE 143 MG/DL (70-104); POTASSIUM 4.1 MMOL/L (3.5-5.1); SODIUM 137 MMOL/L (135-145); TOTAL CARBON DIOXIDE 27.6 MMOL/L (24-32); eGFR 35 ML/MIN
[2018-04-21 15:11] LABS: ALANINE AMINOTRANSFERASE 34 U/L (12-78); ALBUMIN 2.8 G/DL (3.4-5.0); ALBUMIN/GLOBULIN RATIO 0.7 (1.1-1.5); ALKALINE PHOSPHATASE 74 IU/L (46-116); ASPARTATE AMINO TRANSFERASE 18 U/L (10-37); BILIRUBIN,TOTAL 0.5 MG/DL (0.1-1.0); TOTAL PROTEIN 6.6 G/DL (6.4-8.2)
[2018-04-21 15:23] LABS: PHOSPHORUS 3.1 MG/DL (2.3-4.5)
[2018-04-21 15:31] LABS: ABG BASE EXCESS 2.3 mmol/L (-2.0-3.0); ABG HCO3 24.5 mmol/L (22.0-26.0); ABG OXYGEN SATURATION 96.1 % (95-98); ABG PCO2 (T) 30.6 mmHg (35.0-48.0); ABG PH (T) 7.521 (7.350-7.450); ABG PO2 (T) 82.5 mmHg (83-108); ALLEN'S TEST Positive; FCOHb 3.3 % (0.5-1.5); FMetHb 0.3 % (0.3-1.12); FO2Hb 92.6 % (94-100); TOTAL HEMOGLOBIN 12.3 G/dl (14.0-18.0)
[2018-04-21] MEDS ORDERED: HYDROcodone/acetaminophen 10/325mg tab PO PRN (16:00)
[2018-04-21] MEDS ORDERED: acetaminophen 325mg tablet PO PRN ×2 (16:00)
[2018-04-21] MEDS ORDERED: magnesium Cl slow-release 64mg tablet PO PRN (16:00)
[2018-04-21] MEDS ORDERED: mag hydrox/Alum hydrox/simeth 30ml oral suspension PO PRN (16:00)
[2018-04-21] MEDS ORDERED: ondansetron/PF 4mg/2ml inj IV PRN (16:00)
[2018-04-21] MEDS ORDERED: potassium Cl 40MEQ/NS 500ml 500 ML IV PRN ×2 (16:00)
[2018-04-21] MEDS ORDERED: HYDROcodone/acetaminophen 5mg/325mg tablet PO PRN (16:00)
[2018-04-21] MEDS ORDERED: magnesium hydroxide 30ml (MOM) UD suspension PO PRN (16:00)
[2018-04-21] MEDS ORDERED: morphine 2 MG/ML inj. syringe IV PRN ×2 (16:00)
[2018-04-21] MEDS ORDERED: diphenhydrAMINE 25mg capsule PO PRN (16:00)
[2018-04-21] MEDS ORDERED: potassium Cl 20 mEq SR tablet PO PRN ×2 (16:00)
[2018-04-21] MEDS ORDERED: bisacodyl 10mg suppository rectal RC PRN (16:00)
[2018-04-21] MEDS ORDERED: magnesium 4gm in 100ml NS 100 ML IV PRN (16:00)
[2018-04-21] MEDS: K and/or MAG REPLACEMENT MC SCH (16:00)
[2018-04-21] MEDS: azithromycin 250mg tablet PO SCH (16:23)
[2018-04-21] MEDS: normal saline 1000ml 1,000 ML IV SCH (16:23)
[2018-04-21] MEDS: CefTRIAXone/D5W-Rocephin 1gm 50 ML IV SCH (16:23)
[2018-04-21] MEDS ORDERED: TIOT4MIS3 (16:36)
[2018-04-21] MEDS ORDERED: GARL1TAB2 (16:36)
[2018-04-21 17:04] LABS: HEMOGLOBIN A1C 6.1 % (4.5-6.2)
[2018-04-21 17:25] VITALS: BP 133/79
[2018-04-21] MEDS ORDERED: LORazepam 0.5 MG tablet PO PRN (17:30)
[2018-04-21] MEDS ORDERED: ipratropium/albuterol 3ml nebule IH PRN (17:30)
[2018-04-21 18:00] VITALS: BP 119/68
[2018-04-21 18:01] LABS: CLARITY,URINE CLEAR (Clear); COLOR,URINE YELLOW (Yellow); GLUCOSE, URINE NEGATIVE (Neg); KETONES,URINE NEGATIVE (Neg); LEUKOCYTE ESTERASE ,URINE NEGATIVE (Neg); NITRITES, URINE NEGATIVE (Neg); OCCULT BLOOD,URINE NEGATIVE (Neg); PH,URINE 7.5 (4.8-8.0); PROTEIN,URINE NEGATIVE (Neg); UROBILINOGEN,URINE 0.2 E.U/dL (0.2-1.0)
[2018-04-21 18:03] LABS: UA COLLECTION TYPE NON-SPECIFIED
[2018-04-21] MEDS: ipratropium/albuterol 3ml nebule NEB SCH ×2 (19:57→23:28)
[2018-04-21] MEDS: atorvastatin 20mg tablet PO SCH (20:12)
[2018-04-21] MEDS: methylPREDNISolone sod succ 125mg/2ml vial IV SCH (20:13)
[2018-04-21] MEDS: apixaban 5mg tablet PO SCH (20:13)
[2018-04-21] MEDS ORDERED: non-formulary drug (Atorvastatin Calcium 1 TAB) PO SCH (21:00)
[2018-04-21] MEDS ORDERED: temazepam 15mg capsule PO PRN (21:00)
[2018-04-21 22:00] VITALS: BP 150/76
[2018-04-22 02:00] VITALS: BP 151/82
[2018-04-22 02:38] LABS: ALANINE AMINOTRANSFERASE 31 U/L (12-78); ALBUMIN 2.5 G/DL (3.4-5.0); ALBUMIN/GLOBULIN RATIO 0.7 (1.1-1.5); ALKALINE PHOSPHATASE 67 IU/L (46-116); ANION GAP 9 (8-16); ASPARTATE AMINO TRANSFERASE 16 U/L (10-37); BILIRUBIN,TOTAL 0.3 MG/DL (0.1-1.0); BLOOD UREA NITROGEN 33 MG/DL (7-18); BUN/CREATININE RATIO 21.4 (5.4-32.0); CALCIUM 8.5 MG/DL (8.5-10.1); CHLORIDE 96 MMOL/L (99-107); CREATININE 1.54 MG/DL (0.60-1.10); GLUCOSE 143 MG/DL (70-104); SODIUM 134 MMOL/L (135-145); TOTAL CARBON DIOXIDE 28.8 MMOL/L (24-32); TOTAL PROTEIN 6.2 G/DL (6.4-8.2); eGFR 44 ML/MIN
[2018-04-22 02:42] LABS: CHOL/HDL RATIO 2.8 (0.00-4.99); CHOLESTEROL 234 MG/DL (0-200); HDL CHOLESTEROL 83 MG/DL (35-60); LDL CHOLESTEROL 144 MG/DL (50-100); TRIGLYCERIDES 43 MG/DL (20-135)
[2018-04-22 03:01] LABS: BASOPHILS # (AUTO) 0.1 X10'3 (0-0.2); BASOPHILS % (AUTO) 0.5 % (0-1); EOSINOPHILS # (AUTO) 0.2 X10'3 (0-0.9); EOSINOPHILS % (AUTO) 1.4 % (0-6); HEMATOCRIT 34.7 % (42.0-52.0); HEMOGLOBIN 11.3 g/dl (14.0-17.9); LYMPHOCYTES # (AUTO) 0.4 X10'3 (1.1-4.8); LYMPHOCYTES % (AUTO) 3.6 % (21-51); MEAN CORPUSCULAR HEMOGLOBIN 26.8 PG (27.0-31.0); MEAN CORPUSCULAR HGB CONC 32.4 % (33.0-36.5); MEAN CORPUSCULAR VOLUME 82.8 FL (78-98); MEAN PLATELET VOLUME 9.2 FL (7.4-10.4); MONOCYTES % (AUTO) 0.5 % (2-12); NEUTROPHILS # (AUTO) 9.8 X10'3 (1.8-7.7); PLATELET COUNT 278 X10'3 (140-440); WHITE BLOOD COUNT 10.4 X10'3 (4.5-11.0)
[2018-04-22] MEDS: methylPREDNISolone sod succ 125mg/2ml vial IV SCH ×4 (03:13→22:11)
[2018-04-22] MEDS: ipratropium/albuterol 3ml nebule NEB SCH ×6 (03:35→23:06)
[2018-04-22] MEDS: normal saline 1000ml 1,000 ML IV SCH ×2 (04:40→17:26)
[2018-04-22 07:00] VITALS: BP 149/75
[2018-04-22] MEDS ORDERED: CHOLECALCIFEROL PO SCH (08:00)
[2018-04-22] MEDS: K and/or MAG REPLACEMENT MC SCH (08:00)
[2018-04-22] MEDS: vitamin D (cholecalciferol) 1,000 unit tablet PO SCH (09:12)
[2018-04-22] MEDS: metolazone 2.5mg tablet PO SCH (09:12)
[2018-04-22] MEDS: pantoprazole 40mg Tablet.DR PO SCH (09:12)
[2018-04-22] MEDS: losartan 50mg tablet PO SCH (09:13)
[2018-04-22] MEDS: diltiazem CD 180mg cap (once-daily) PO SCH (09:13)
[2018-04-22] MEDS: apixaban 5mg tablet PO SCH ×2 (09:14→22:11)
[2018-04-22] MEDS: montelukast 10mg tablet PO SCH (09:14)
[2018-04-22] MEDS: CefTRIAXone/D5W-Rocephin 1gm 50 ML IV SCH (09:15)
[2018-04-22] MEDS: azithromycin 250mg tablet PO SCH (09:25)
[2018-04-22 15:00] VITALS: BP 129/61
[2018-04-22 19:00] VITALS: BP 170/78
[2018-04-22 19:40] VITALS: BP 154/75
[2018-04-22 22:00] VITALS: BP 163/67
[2018-04-22] MEDS: atorvastatin 20mg tablet PO SCH (22:11)
[2018-04-23] MEDS: normal saline 1000ml 1,000 ML IV SCH (01:52)
[2018-04-23] MEDS: methylPREDNISolone sod succ 125mg/2ml vial IV SCH ×2 (01:52→08:13)
[2018-04-23 02:00] VITALS: BP 148/67
[2018-04-23] MEDS: ipratropium/albuterol 3ml nebule NEB SCH ×3 (03:03→10:43)
[2018-04-23 06:00] VITALS: BP 137/80
[2018-04-23 07:42] LABS: BASOPHILS % (AUTO) 0 % (0-1); EOSINOPHILS % (AUTO) 0 % (0-6); HEMATOCRIT 33.2 % (42.0-52.0); HEMOGLOBIN 10.9 g/dl (14.0-17.9); LYMPHOCYTES # (AUTO) 0.3 X10'3 (1.1-4.8); LYMPHOCYTES % (AUTO) 2.5 % (21-51); MEAN CORPUSCULAR HEMOGLOBIN 27.2 PG (27.0-31.0); MEAN CORPUSCULAR HGB CONC 32.7 % (33.0-36.5); MEAN CORPUSCULAR VOLUME 83.1 FL (78-98); MEAN PLATELET VOLUME 8.9 FL (7.4-10.4); MONOCYTES # (AUTO) 0.4 X10'3 (0-0.9); MONOCYTES % (AUTO) 2.8 % (2-12); NEUTROPHILS # (AUTO) 12.9 X10'3 (1.8-7.7); NEUTROPHILS % (AUTO) 94.7 % (42-75); PLATELET COUNT 283 X10'3 (140-440); RED CELL DISTRIBUTION WIDTH 17.4 % (11.5-14.5); WHITE BLOOD COUNT 13.6 X10'3 (4.5-11.0)
[2018-04-23] MEDS: K and/or MAG REPLACEMENT MC SCH (08:00)
[2018-04-23 08:04] LABS: ALANINE AMINOTRANSFERASE 31 U/L (12-78); ALBUMIN 2.4 G/DL (3.4-5.0); ALBUMIN/GLOBULIN RATIO 0.7 (1.1-1.5); ALKALINE PHOSPHATASE 58 IU/L (46-116); ANION GAP 14 (8-16); ASPARTATE AMINO TRANSFERASE 17 U/L (10-37); BILIRUBIN,TOTAL 0.3 MG/DL (0.1-1.0); BLOOD UREA NITROGEN 31 MG/DL (7-18); BUN/CREATININE RATIO 21.2 (5.4-32.0); CALCIUM 8.5 MG/DL (8.5-10.1); CHLORIDE 94 MMOL/L (99-107); CREATININE 1.46 MG/DL (0.60-1.10); GLUCOSE 150 MG/DL (70-104); PHOSPHORUS 3.6 MG/DL (2.3-4.5); POTASSIUM 3.5 MMOL/L (3.5-5.1); SODIUM 131 MMOL/L (135-145); TOTAL CARBON DIOXIDE 22.6 MMOL/L (24-32); TOTAL PROTEIN 5.7 G/DL (6.4-8.2); eGFR 47 ML/MIN
[2018-04-23] MEDS: vitamin D (cholecalciferol) 1,000 unit tablet PO SCH (08:04)
[2018-04-23] MEDS: losartan 50mg tablet PO SCH (08:04)
[2018-04-23] MEDS: montelukast 10mg tablet PO SCH (08:04)
[2018-04-23] MEDS: CefTRIAXone/D5W-Rocephin 1gm 50 ML IV SCH (08:04)
[2018-04-23] MEDS: diltiazem CD 180mg cap (once-daily) PO SCH (08:04)
[2018-04-23] MEDS: apixaban 5mg tablet PO SCH (08:05)
[2018-04-23] MEDS: azithromycin 250mg tablet PO SCH (08:05)
[2018-04-23] MEDS: metolazone 2.5mg tablet PO SCH (08:05)
[2018-04-23] MEDS: pantoprazole 40mg Tablet.DR PO SCH (08:05)
[2018-04-23] MEDS ORDERED: AMOX-422 PO (12:52)
[2018-04-23] MEDS ORDERED: PRED10TA23 PO (12:52)
== END 2018-04-23 13:22 | disposition home or self-care (01) | DRG 189 ==
LOC: ER 13:51 → ED HOLD 15:56 → PCU 3S 17:04
PROVIDERS: ADMIT Family Medicine; ATTEND Internal Medicine
DX: J96.21 Acute and chronic respiratory failure with hypoxia (principal); J44.1 Chronic obstructive pulmonary disease with (acute) exacerbation; M48.54XA Collapsed vertebra, not elsewhere classified, thoracic region, initial encounter for fracture; E78.00 Pure hypercholesterolemia, unspecified; E78.5 Hyperlipidemia, unspecified; E86.0 Dehydration; I12.9 Hypertensive chronic kidney disease with stage 1 through stage 4 chronic kidney disease, or unspecified chronic kidney disease; I25.10 Atherosclerotic heart disease of native coronary artery without angina pectoris; I48.91 Unspecified atrial fibrillation; I71.2 Thoracic aortic aneurysm, without rupture; I71.4 Abdominal aortic aneurysm, without rupture; I73.9 Peripheral vascular disease, unspecified; G89.29 Other chronic pain; M54.9 Dorsalgia, unspecified; R00.0 Tachycardia, unspecified; K21.9 Gastro-esophageal reflux disease without esophagitis; N18.3 Chronic kidney disease, stage 3 (moderate); Z99.81 Dependence on supplemental oxygen; Z79.01 Long term (current) use of anticoagulants; Z79.52 Long term (current) use of systemic steroids; Z79.899 Other long term (current) drug therapy; Z86.79 Personal history of other diseases of the circulatory system; Z87.891 Personal history of nicotine dependence; Z82.5 Family history of asthma and other chronic lower respiratory diseases
CPT/HCPCS: 36415; 36600; 71045; 71250; 72146; 80053; 80061; 81003; 82803; 83036; 83735; 83880; 84100; 84484; 85018; 85025; 85610; 85730; 87040; 87070; 93005; 94640; 94760; 96374; 97161; 99285; G0378; J0696; J2930; J7030

== ENCOUNTER 2018-05-06 12:32 | Inpatient (IN) | payer MEDICARE ==
[~2018-05-06] VITALS: Ht 188 cm; Wt 97.1 kg
[~2018-05-06 12:32] MED LIST changes: +AMOX-422 PO; -CEFD300C3 PO; +GARL1TAB2; -GARL1TAB2 PO; -MECL-111 PO; -PRED5TAB PO; +TIOT4MIS3; -TIOT4MIS3 INH
[2018-05-06] MEDS ORDERED: methylPREDNISolone sod succ 125mg/2ml vial IV ONE (13:05)
[2018-05-06] MEDS ORDERED: ipratropium/albuterol 3ml nebule NEB ONE (13:05)
[2018-05-06 13:10] LABS: BASOPHILS % (AUTO) 0.3 % (0-1); EOSINOPHILS # (AUTO) 0.1 X10'3 (0-0.9); EOSINOPHILS % (AUTO) 1.5 % (0-6); HEMATOCRIT 36.8 % (42.0-52.0); HEMOGLOBIN 12.2 g/dl (14.0-17.9); LYMPHOCYTES # (AUTO) 0.4 X10'3 (1.1-4.8); LYMPHOCYTES % (AUTO) 5.1 % (21-51); MEAN CORPUSCULAR HEMOGLOBIN 27.2 PG (27.0-31.0); MEAN CORPUSCULAR HGB CONC 33.2 % (33.0-36.5); MEAN PLATELET VOLUME 8.1 FL (7.4-10.4); MONOCYTES # (AUTO) 0.3 X10'3 (0-0.9); MONOCYTES % (AUTO) 4.1 % (2-12); NEUTROPHILS # (AUTO) 6.1 X10'3 (1.8-7.7); PLATELET COUNT 235 X10'3 (140-440); RED BLOOD COUNT 4.49 X10'6 (4.70-6.10); RED CELL DISTRIBUTION WIDTH 16.7 % (11.5-14.5); WHITE BLOOD COUNT 6.9 X10'3 (4.5-11.0)
[2018-05-06] MEDS ORDERED: acetaminophen 325mg tablet PO ONE (13:10)
[2018-05-06] MEDS ORDERED: normal saline 1000ML IV soln IVB ONE ×2 (13:10→13:50)
[2018-05-06 13:23] LABS: PROTHROMBIN TIME 9.7 SECONDS (9.0-12.0)
[2018-05-06 13:24] LABS: PARTIAL THROMBOPLASTIN TIME 26 SECONDS (22-32)
[2018-05-06] MEDS ORDERED: oseltamivir phos 75mg capsule PO ONE (13:25)
[2018-05-06 13:26] LABS: ALANINE AMINOTRANSFERASE 32 U/L (12-78); ALBUMIN 2.5 G/DL (3.4-5.0); ALBUMIN/GLOBULIN RATIO 0.6 (1.1-1.5); ALKALINE PHOSPHATASE 61 IU/L (46-116); ANION GAP 14 (8-16); ASPARTATE AMINO TRANSFERASE 28 U/L (10-37); BILIRUBIN,TOTAL 0.3 MG/DL (0.1-1.0); BLOOD UREA NITROGEN 38 MG/DL (7-18); BUN/CREATININE RATIO 20.2 (5.4-32.0); CALCIUM 8.6 MG/DL (8.5-10.1); CHLORIDE 98 MMOL/L (99-107); CREATININE 1.88 MG/DL (0.60-1.10); GLUCOSE 98 MG/DL (70-104); POTASSIUM 3.3 MMOL/L (3.5-5.1); SODIUM 137 MMOL/L (135-145); TOTAL CARBON DIOXIDE 25.2 MMOL/L (24-32); TOTAL PROTEIN 6.7 G/DL (6.4-8.2); eGFR 35 ML/MIN
[2018-05-06 13:33] LABS: TROPONIN I < 0.04 NG/ML (0.0-0.05)
[2018-05-06] MEDS ORDERED: levoFLOXACIN-Levaquin 500mg/D5 100 ML IV ONE (13:45)
[2018-05-06] MEDS ORDERED: potassium Cl 20 mEq SR tablet PO STA (14:20)
[2018-05-06] MEDS ORDERED: acetaminophen 325mg tablet PO PRN (14:35)
[2018-05-06] MEDS ORDERED: mag hydrox/Alum hydrox/simeth 30ml oral suspension PO PRN (14:35)
[2018-05-06] MEDS ORDERED: magnesium hydroxide 30ml (MOM) UD suspension PO PRN (14:35)
[2018-05-06] MEDS ORDERED: ondansetron/PF 4mg/2ml inj IV PRN (14:35)
[2018-05-06] MEDS: ipratropium/albuterol 3ml nebule NEB SCH ×3 (15:00→23:33)
[2018-05-06] MEDS ORDERED: LORazepam 0.5 MG tablet PO PRN (15:45)
[2018-05-06 18:00] VITALS: BP 124/74
[2018-05-06] MEDS ORDERED: heparin, porcine 5000 units/ml vial SQ SCH (20:00)
[2018-05-06 20:39] LABS: CLARITY,URINE CLEAR (Clear); COLOR,URINE YELLOW (Yellow); GLUCOSE, URINE NEGATIVE (Neg); KETONES,URINE NEGATIVE (Neg); LEUKOCYTE ESTERASE ,URINE NEGATIVE (Neg); NITRITES, URINE NEGATIVE (Neg); OCCULT BLOOD,URINE NEGATIVE (Neg); PH,URINE 5.5 (4.8-8.0); PROTEIN,URINE TRACE mg/dl (Neg); UROBILINOGEN,URINE 0.2 E.U/dL (0.2-1.0)
[2018-05-06] MEDS: methylPREDNISolone sod succ 125mg/2ml vial IV SCH (20:40)
[2018-05-06] MEDS: atorvastatin 20mg tablet PO SCH (20:40)
[2018-05-06] MEDS: apixaban 5mg tablet PO SCH (20:40)
[2018-05-06 20:43] LABS: UA COLLECTION TYPE VOIDED
[2018-05-06 21:44] LABS: MUCUS STRANDS FEW /LPF (Neg); SQUAMOUS EPITHELIAL CELL,UR FEW /LPF (FEW)
[2018-05-06 21:45] LABS: BACTERIA,URINE NONE SEEN /HPF (Neg); CAL OXALATE CRYSTALS 1+ /HPF (NEGATIVE); RBC,URINE 0-2 /HPF (0-2); WBC,URINE 0-4 /HPF (0-4)
[2018-05-06 23:00] VITALS: BP 126/71
[2018-05-07] MEDS: methylPREDNISolone sod succ 125mg/2ml vial IV SCH ×2 (02:29→08:12)
[2018-05-07 03:00] VITALS: BP 149/75
[2018-05-07] MEDS: ipratropium/albuterol 3ml nebule NEB SCH ×6 (04:00→23:49)
[2018-05-07 06:42] LABS: ALBUMIN 2.4 G/DL (3.4-5.0); ANION GAP 17 (8-16); BLOOD UREA NITROGEN 36 MG/DL (7-18); CALCIUM 8.5 MG/DL (8.5-10.1); CHLORIDE 97 MMOL/L (99-107); GLUCOSE 143 MG/DL (70-104); POTASSIUM 3.5 MMOL/L (3.5-5.1); SODIUM 135 MMOL/L (135-145); TOTAL CARBON DIOXIDE 20.8 MMOL/L (24-32); eGFR 46 ML/MIN
[2018-05-07 06:48] LABS: BASOPHILS % (AUTO) 0 % (0-1); EOSINOPHILS % (AUTO) 0.5 % (0-6); HEMATOCRIT 34.5 % (42.0-52.0); HEMOGLOBIN 11.7 g/dl (14.0-17.9); LYMPHOCYTES # (AUTO) 0.1 X10'3 (1.1-4.8); LYMPHOCYTES % (AUTO) 3.3 % (21-51); MEAN CORPUSCULAR HEMOGLOBIN 27.5 PG (27.0-31.0); MEAN CORPUSCULAR HGB CONC 33.8 % (33.0-36.5); MEAN CORPUSCULAR VOLUME 81.4 FL (78-98); MEAN PLATELET VOLUME 8.4 FL (7.4-10.4); MONOCYTES # (AUTO) 0.1 X10'3 (0-0.9); MONOCYTES % (AUTO) 3.3 % (2-12); NEUTROPHILS # (AUTO) 3.4 X10'3 (1.8-7.7); NEUTROPHILS % (AUTO) 92.9 % (42-75); PLATELET COUNT 231 X10'3 (140-440); RED BLOOD COUNT 4.24 X10'6 (4.70-6.10); WHITE BLOOD COUNT 3.7 X10'3 (4.5-11.0)
[2018-05-07 07:00] VITALS: BP 154/82
[2018-05-07] MEDS ORDERED: levoFLOXACIN-Levaquin 500mg/D5 100 ML IV SCH (08:00)
[2018-05-07] MEDS: metolazone 2.5mg tablet PO SCH (08:00)
[2018-05-07] MEDS: diltiazem CD 180mg cap (once-daily) PO SCH (08:09)
[2018-05-07] MEDS: apixaban 5mg tablet PO SCH ×2 (08:10→20:15)
[2018-05-07] MEDS: vitamin D (cholecalciferol) 1,000 unit tablet PO SCH (08:10)
[2018-05-07] MEDS: losartan 50mg tablet PO SCH (08:10)
[2018-05-07] MEDS: levoFLOXACIN-Levaquin 250mg/D5 50 ML IV SCH (08:17)
[2018-05-07 11:00] VITALS: BP 158/77
[2018-05-07 15:00] VITALS: BP 134/67
[2018-05-07 19:00] VITALS: BP 146/55
[2018-05-07] MEDS: atorvastatin 20mg tablet PO SCH (20:15)
[2018-05-07] MEDS: methylPREDNISolone sod succ/PF 40mg inj. IV SCH (20:17)
[2018-05-07 23:00] VITALS: BP 146/81
[2018-05-08 03:00] VITALS: BP 134/77
[2018-05-08] MEDS: ipratropium/albuterol 3ml nebule NEB SCH ×3 (04:12→11:07)
[2018-05-08 05:44] LABS: BASOPHILS % (AUTO) 0 % (0-1); EOSINOPHILS % (AUTO) 0.6 % (0-6); HEMATOCRIT 32.9 % (42.0-52.0); LYMPHOCYTES # (AUTO) 0.1 X10'3 (1.1-4.8); LYMPHOCYTES % (AUTO) 3.5 % (21-51); MEAN CORPUSCULAR HEMOGLOBIN 27.1 PG (27.0-31.0); MEAN CORPUSCULAR HGB CONC 33.3 % (33.0-36.5); MEAN CORPUSCULAR VOLUME 81.6 FL (78-98); MEAN PLATELET VOLUME 8.1 FL (7.4-10.4); MONOCYTES # (AUTO) 0.3 X10'3 (0-0.9); NEUTROPHILS # (AUTO) 3.3 X10'3 (1.8-7.7); NEUTROPHILS % (AUTO) 87.9 % (42-75); PLATELET COUNT 209 X10'3 (140-440); RED BLOOD COUNT 4.04 X10'6 (4.70-6.10); RED CELL DISTRIBUTION WIDTH 17.3 % (11.5-14.5); WHITE BLOOD COUNT 3.8 X10'3 (4.5-11.0)
[2018-05-08 05:53] LABS: ALBUMIN 2.2 G/DL (3.4-5.0); ANION GAP 13 (8-16); BLOOD UREA NITROGEN 38 MG/DL (7-18); BUN/CREATININE RATIO 22.6 (5.4-32.0); CALCIUM 8.6 MG/DL (8.5-10.1); CHLORIDE 98 MMOL/L (99-107); CREATININE 1.68 MG/DL (0.60-1.10); GLUCOSE 162 MG/DL (70-104); POTASSIUM 3.1 MMOL/L (3.5-5.1); SODIUM 136 MMOL/L (135-145); TOTAL CARBON DIOXIDE 24.7 MMOL/L (24-32); eGFR 40 ML/MIN
[2018-05-08 07:00] VITALS: BP 144/72
[2018-05-08] MEDS: methylPREDNISolone sod succ/PF 40mg inj. IV SCH (07:21)
[2018-05-08] MEDS: levoFLOXACIN-Levaquin 250mg/D5 50 ML IV SCH (07:21)
[2018-05-08] MEDS: diltiazem CD 180mg cap (once-daily) PO SCH (07:22)
[2018-05-08] MEDS: apixaban 5mg tablet PO SCH (07:22)
[2018-05-08] MEDS: losartan 50mg tablet PO SCH (07:22)
[2018-05-08] MEDS: vitamin D (cholecalciferol) 1,000 unit tablet PO SCH (07:23)
[2018-05-08] MEDS ORDERED: potassium Cl 40MEQ/NS 500ml 500 ML IV PRN ×2 (09:30)
[2018-05-08] MEDS ORDERED: potassium Cl 20 mEq SR tablet PO PRN (09:30)
[2018-05-08] MEDS ORDERED: magnesium 4gm in 100ml NS 100 ML IV PRN (09:30)
[2018-05-08] MEDS ORDERED: magnesium Cl slow-release 64mg tablet PO PRN (09:30)
[2018-05-08] MEDS: potassium Cl 20 mEq SR tablet PO PRN ×2 (09:50→13:41)
[2018-05-08] MEDS: metolazone 2.5mg tablet PO SCH (09:50)
[2018-05-08 11:00] VITALS: BP 140/71
[2018-05-08] MEDS ORDERED: DOXY100C2 PO (11:14)
[2018-05-08] MEDS ORDERED: PRED10TA23 PO (11:14)
== END 2018-05-08 14:10 | disposition home health service (06) | DRG 871 ==
LOC: ER 12:33 → ED HOLD 14:35 → EDBEDREQ 15:02 → PCU 3S 15:30
PROVIDERS: ADMIT Family Medicine; ATTEND Family Medicine
DX: A41.9 Sepsis, unspecified organism (principal); J18.9 Pneumonia, unspecified organism; J96.21 Acute and chronic respiratory failure with hypoxia; N17.9 Acute kidney failure, unspecified; E87.2 Acidosis; J44.0 Chronic obstructive pulmonary disease with (acute) lower respiratory infection; J44.1 Chronic obstructive pulmonary disease with (acute) exacerbation; E86.0 Dehydration; G89.29 Other chronic pain; N18.9 Chronic kidney disease, unspecified; E78.00 Pure hypercholesterolemia, unspecified; M54.9 Dorsalgia, unspecified; I12.9 Hypertensive chronic kidney disease with stage 1 through stage 4 chronic kidney disease, or unspecified chronic kidney disease; I25.10 Atherosclerotic heart disease of native coronary artery without angina pectoris; I48.91 Unspecified atrial fibrillation; Z98.49 Cataract extraction status, unspecified eye; Z79.899 Other long term (current) drug therapy; Z86.79 Personal history of other diseases of the circulatory system; Z87.891 Personal history of nicotine dependence
CPT/HCPCS: 36415; 71045; 80048; 80053; 81001; 83605; 83880; 84145; 84484; 85025; 85610; 85730; 87040; 87070; 87502; 87503; 93005; 94640; 94760; 96365; 96375; 99285; G0378; J1956; J2920; J2930

== ENCOUNTER 2018-05-14 09:02 | Inpatient (IN) | payer MEDICARE ==
[~2018-05-14] VITALS: Ht 188 cm; Wt 96.6 kg
[~2018-05-14 09:02] MED LIST changes: -AMOX-422 PO; +DOXY100C2 PO; -GARL1TAB2; -MONT10TA21 PO; -PANT40TA4 PO; -TIOT4MIS3
[2018-05-14] MEDS ORDERED: normal saline 1000ML IV soln IVB ONE (10:05)
[2018-05-14 10:11] LABS: BASOPHILS # (AUTO) 0.1 X10'3 (0-0.2); BASOPHILS % (AUTO) 0.9 % (0-1); EOSINOPHILS # (AUTO) 0.2 X10'3 (0-0.9); EOSINOPHILS % (AUTO) 1.3 % (0-6); HEMATOCRIT 38.2 % (42.0-52.0); HEMOGLOBIN 12.1 g/dl (14.0-17.9); LYMPHOCYTES # (AUTO) 0.5 X10'3 (1.1-4.8); LYMPHOCYTES % (AUTO) 4.2 % (21-51); MEAN CORPUSCULAR HEMOGLOBIN 26.3 PG (27.0-31.0); MEAN CORPUSCULAR HGB CONC 31.8 % (33.0-36.5); MEAN CORPUSCULAR VOLUME 82.8 FL (78-98); MEAN PLATELET VOLUME 8.3 FL (7.4-10.4); MONOCYTES # (AUTO) 0.5 X10'3 (0-0.9); MONOCYTES % (AUTO) 4.3 % (2-12); NEUTROPHILS # (AUTO) 10.6 X10'3 (1.8-7.7); NEUTROPHILS % (AUTO) 89.3 % (42-75); PLATELET COUNT 393 X10'3 (140-440); RED BLOOD COUNT 4.61 X10'6 (4.70-6.10); RED CELL DISTRIBUTION WIDTH 15.9 % (11.5-14.5); WHITE BLOOD COUNT 11.9 X10'3 (4.5-11.0)
[2018-05-14 10:24] LABS: ALANINE AMINOTRANSFERASE 29 U/L (12-78); ALBUMIN 2.5 G/DL (3.4-5.0); ALBUMIN/GLOBULIN RATIO 0.6 (1.1-1.5); ALKALINE PHOSPHATASE 70 IU/L (46-116); ANION GAP 10 (8-16); ASPARTATE AMINO TRANSFERASE 18 U/L (10-37); BILIRUBIN,TOTAL 0.6 MG/DL (0.1-1.0); BLOOD UREA NITROGEN 26 MG/DL (7-18); BUN/CREATININE RATIO 16.6 (5.4-32.0); CALCIUM 8.5 MG/DL (8.5-10.1); CHLORIDE 99 MMOL/L (99-107); CREATININE 1.57 MG/DL (0.60-1.10); GLUCOSE 98 MG/DL (70-104); POTASSIUM 3.9 MMOL/L (3.5-5.1); SODIUM 139 MMOL/L (135-145); TOTAL CARBON DIOXIDE 30.1 MMOL/L (24-32); TOTAL PROTEIN 6.7 G/DL (6.4-8.2); eGFR 43 ML/MIN
[2018-05-14 11:42] LABS: CLARITY,URINE CLEAR (Clear); COLOR,URINE YELLOW (Yellow); GLUCOSE, URINE NEGATIVE (Neg); KETONES,URINE NEGATIVE (Neg); LEUKOCYTE ESTERASE ,URINE NEGATIVE (Neg); NITRITES, URINE NEGATIVE (Neg); OCCULT BLOOD,URINE TRACE-INTACT (Neg); PH,URINE 7.5 (4.8-8.0); PROTEIN,URINE TRACE mg/dl (Neg); UROBILINOGEN,URINE 0.2 E.U/dL (0.2-1.0)
[2018-05-14 11:45] LABS: UA COLLECTION TYPE CLN CATCH MIDSTREAM
[2018-05-14 11:57] LABS: BACTERIA,URINE NONE SEEN /HPF (Neg); SQUAMOUS EPITHELIAL CELL,UR FEW /LPF (FEW); WBC,URINE 0-4 /HPF (0-4)
[2018-05-14] MEDS ORDERED: ipratropium/albuterol 3ml nebule NEB PRN ×2 (12:05→12:55)
[2018-05-14] MEDS ORDERED: mag hydrox/Alum hydrox/simeth 30ml oral suspension PO PRN (12:40)
[2018-05-14] MEDS ORDERED: potassium Cl 40MEQ/NS 500ml 500 ML IV PRN ×2 (12:40)
[2018-05-14] MEDS ORDERED: magnesium 4gm in 100ml NS 100 ML IV PRN (12:40)
[2018-05-14] MEDS ORDERED: magnesium hydroxide 30ml (MOM) UD suspension PO PRN (12:40)
[2018-05-14] MEDS ORDERED: magnesium Cl slow-release 64mg tablet PO PRN (12:40)
[2018-05-14] MEDS ORDERED: potassium Cl 20 mEq SR tablet PO PRN (12:40)
[2018-05-14] MEDS ORDERED: acetaminophen 325mg tablet PO PRN ×2 (12:40)
[2018-05-14] MEDS ORDERED: ondansetron/PF 4mg/2ml inj IV PRN (12:40)
[2018-05-14] MEDS ORDERED: LORazepam 0.5 MG tablet PO PRN (12:50)
[2018-05-14] MEDS: cefepime 1GM/NS ADD-VANTAGE 100 ML IV SCH (13:10)
[2018-05-14] MEDS: levoFLOXACIN-Levaquin 250mg/D5 50 ML IV SCH (13:10)
[2018-05-14] MEDS: potassium Cl 20mEq in NS 1,000 ML IV SCH ×2 (13:15→22:36)
[2018-05-14] MEDS: methylPREDNISolone sod succ 125mg/2ml vial IV SCH ×2 (14:12→21:17)
[2018-05-14] MEDS: ipratropium/albuterol 3ml nebule NEB SCH ×3 (15:00→23:46)
--- NOTE | 2018-05-14 16:19 | NUR ---
Patient in room ED 3. I have received report from Arielle MONTANEZ and had the opportunity to ask questions and assume patient care.
[2018-05-14 17:19] VITALS: BP 150/86
--- NOTE | 2018-05-14 17:21 | NUR ---
Pt arrived safely in rm 3017a by erika. Sitting up at side of bed talking to on phone, no signs of distress.
[2018-05-14 18:00] VITALS: BP 115/58
--- NOTE | 2018-05-14 18:07 | NUR ---
Problems reprioritized. Patient report given, questions answered & plan of care reviewed with Cyndie OMNTANEZ.
--- NOTE | 2018-05-14 18:08 | NUR ---
Patient in room PCU 3017. I have received report from TARIK Izaguirre and had the opportunity to ask questions and assume patient care. Patient is sitting on side of bed eating dinner, he is A&O x4, MOYA and is appropriate. Reports continued weakness and SOB, I will continue to monitor.
[2018-05-14] MEDS ORDERED: temazepam 15mg capsule PO PRN (21:00)
[2018-05-14] MEDS: apixaban 5mg tablet PO SCH (21:17)
[2018-05-14] MEDS: atorvastatin 20mg tablet PO SCH (21:17)
[2018-05-14 22:00] VITALS: BP 135/68
[2018-05-15] MEDS: potassium Cl 20mEq in NS 1,000 ML IV SCH ×2 (01:49→07:41)
[2018-05-15 02:00] VITALS: BP 153/99
[2018-05-15] MEDS: methylPREDNISolone sod succ 125mg/2ml vial IV SCH ×4 (02:03→19:21)
[2018-05-15 05:57] LABS: BASOPHILS % (AUTO) 0 % (0-1); EOSINOPHILS % (AUTO) 0.1 % (0-6); HEMATOCRIT 35.1 % (42.0-52.0); HEMOGLOBIN 11.6 g/dl (14.0-17.9); LYMPHOCYTES # (AUTO) 0.4 X10'3 (1.1-4.8); LYMPHOCYTES % (AUTO) 4.6 % (21-51); MEAN CORPUSCULAR HEMOGLOBIN 27.2 PG (27.0-31.0); MEAN CORPUSCULAR HGB CONC 33.1 % (33.0-36.5); MEAN CORPUSCULAR VOLUME 82.1 FL (78-98); MEAN PLATELET VOLUME 8.7 FL (7.4-10.4); MONOCYTES # (AUTO) 0.2 X10'3 (0-0.9); MONOCYTES % (AUTO) 2.3 % (2-12); NEUTROPHILS # (AUTO) 8.3 X10'3 (1.8-7.7); PLATELET COUNT 369 X10'3 (140-440); RED BLOOD COUNT 4.28 X10'6 (4.70-6.10); RED CELL DISTRIBUTION WIDTH 15.9 % (11.5-14.5); WHITE BLOOD COUNT 8.9 X10'3 (4.5-11.0)
[2018-05-15 06:00] LABS: ALANINE AMINOTRANSFERASE 24 U/L (12-78); ALBUMIN 2.2 G/DL (3.4-5.0); ALBUMIN/GLOBULIN RATIO 0.6 (1.1-1.5); ALKALINE PHOSPHATASE 57 IU/L (46-116); ANION GAP 12 (8-16); ASPARTATE AMINO TRANSFERASE 15 U/L (10-37); BILIRUBIN,TOTAL 0.5 MG/DL (0.1-1.0); BLOOD UREA NITROGEN 31 MG/DL (7-18); BUN/CREATININE RATIO 20.3 (5.4-32.0); CALCIUM 8.3 MG/DL (8.5-10.1); CHLORIDE 101 MMOL/L (99-107); CREATININE 1.53 MG/DL (0.60-1.10); GLUCOSE 154 MG/DL (70-104); MAGNESIUM 1.9 MG/DL (1.5-2.4); POTASSIUM 3.3 MMOL/L (3.5-5.1); SODIUM 138 MMOL/L (135-145); TOTAL CARBON DIOXIDE 25.4 MMOL/L (24-32); TOTAL PROTEIN 6.2 G/DL (6.4-8.2); eGFR 45 ML/MIN
--- NOTE | 2018-05-15 06:25 | NUR ---
Problems reprioritized. Patient report given, questions answered & plan of care reviewed with TARIK Izaguirre.
--- NOTE | 2018-05-15 06:40 | NUR ---
Patient in room PCU 3017. I have received report from Cyndie MONTANEZ and had the opportunity to ask questions and assume patient care.
[2018-05-15 07:00] VITALS: BP 154/91
[2018-05-15] MEDS: cefepime 1GM/NS ADD-VANTAGE 100 ML IV SCH (07:39)
[2018-05-15] MEDS: levoFLOXACIN-Levaquin 250mg/D5 50 ML IV SCH (07:39)
[2018-05-15] MEDS: potassium Cl 20 mEq SR tablet PO PRN ×4 (07:41→17:20)
[2018-05-15] MEDS: apixaban 5mg tablet PO SCH ×2 (07:56→19:21)
[2018-05-15] MEDS: losartan 50mg tablet PO SCH (07:58)
[2018-05-15] MEDS: diltiazem CD 180mg cap (once-daily) PO SCH (07:58)
[2018-05-15] MEDS ORDERED: enoxaparin 40mg/0.4ml syringe SUBCUT SCH (08:00)
[2018-05-15] MEDS: K and/or MAG REPLACEMENT MC SCH (08:00)
[2018-05-15] MEDS: ipratropium/albuterol 3ml nebule NEB SCH ×5 (08:10→23:00)
[2018-05-15 11:00] VITALS: BP 154/77
[2018-05-15 18:00] VITALS: BP 118/61
--- NOTE | 2018-05-15 18:09 | NUR ---
Problems reprioritized. Patient report given, questions answered & plan of care reviewed with Cyndie MONTANEZ.
--- NOTE | 2018-05-15 18:10 | NUR ---
Patient in room PCU 3017. I have received report from TARIK Izaguirre and had the opportunity to ask questions and assume patient care.
[2018-05-15 18:45] VITALS: BP 140/64
[2018-05-15] MEDS: lactobacillus rhamnosus 10,000 MMU CELLS/CAPSULE PO SCH (19:21)
[2018-05-15] MEDS: atorvastatin 20mg tablet PO SCH (19:21)
[2018-05-15 22:00] VITALS: BP 125/46
[2018-05-16] MEDS: potassium Cl 20mEq in NS 1,000 ML IV SCH (01:42)
[2018-05-16] MEDS: methylPREDNISolone sod succ 125mg/2ml vial IV SCH ×2 (01:44→07:56)
[2018-05-16 02:00] VITALS: BP 137/65
[2018-05-16 06:00] VITALS: BP 146/65
--- NOTE | 2018-05-16 06:07 | NUR ---
Problems reprioritized. Patient report given, questions answered & plan of care reviewed with TARIK Patrick.
--- NOTE | 2018-05-16 06:15 | NUR ---
Patient in room PCU 3017. I have received report from Maddie MONTANEZ and had the opportunity to ask questions and assume patient care. Pt is alert and oriented X4, no signs of distress. Will continue to monitor.
[2018-05-16 06:24] LABS: BASOPHILS % (AUTO) 0 % (0-1); EOSINOPHILS % (AUTO) 0 % (0-6); HEMATOCRIT 31.6 % (42.0-52.0); HEMOGLOBIN 10.7 g/dl (14.0-17.9); LYMPHOCYTES # (AUTO) 0.4 X10'3 (1.1-4.8); LYMPHOCYTES % (AUTO) 2.6 % (21-51); MEAN CORPUSCULAR HEMOGLOBIN 28.4 PG (27.0-31.0); MEAN CORPUSCULAR VOLUME 83.6 FL (78-98); MEAN PLATELET VOLUME 8.8 FL (7.4-10.4); MONOCYTES # (AUTO) 0.6 X10'3 (0-0.9); NEUTROPHILS # (AUTO) 14.6 X10'3 (1.8-7.7); NEUTROPHILS % (AUTO) 93.4 % (42-75); PLATELET COUNT 378 X10'3 (140-440); RED BLOOD COUNT 3.78 X10'6 (4.70-6.10); RED CELL DISTRIBUTION WIDTH 15.9 % (11.5-14.5); WHITE BLOOD COUNT 15.6 X10'3 (4.5-11.0)
[2018-05-16 06:28] LABS: ALANINE AMINOTRANSFERASE 22 U/L (12-78); ALBUMIN 2.1 G/DL (3.4-5.0); ALBUMIN/GLOBULIN RATIO 0.6 (1.1-1.5); ALKALINE PHOSPHATASE 51 IU/L (46-116); ANION GAP 12 (8-16); ASPARTATE AMINO TRANSFERASE 14 U/L (10-37); BILIRUBIN,TOTAL 0.2 MG/DL (0.1-1.0); BLOOD UREA NITROGEN 37 MG/DL (7-18); BUN/CREATININE RATIO 26.8 (5.4-32.0); CALCIUM 8.3 MG/DL (8.5-10.1); CHLORIDE 103 MMOL/L (99-107); CREATININE 1.38 MG/DL (0.60-1.10); GLUCOSE 138 MG/DL (70-104); MAGNESIUM 1.9 MG/DL (1.5-2.4); POTASSIUM 3.9 MMOL/L (3.5-5.1); SODIUM 138 MMOL/L (135-145); TOTAL CARBON DIOXIDE 22.7 MMOL/L (24-32); TOTAL PROTEIN 5.7 G/DL (6.4-8.2); eGFR 50 ML/MIN
[2018-05-16] MEDS: ipratropium/albuterol 3ml nebule NEB SCH ×2 (06:53→11:58)
[2018-05-16] MEDS: lactobacillus rhamnosus 10,000 MMU CELLS/CAPSULE PO SCH (07:56)
[2018-05-16] MEDS: apixaban 5mg tablet PO SCH (07:57)
[2018-05-16] MEDS: diltiazem CD 180mg cap (once-daily) PO SCH (07:57)
[2018-05-16] MEDS: losartan 50mg tablet PO SCH (07:57)
[2018-05-16] MEDS: cefepime 1GM/NS ADD-VANTAGE 100 ML IV SCH (07:57)
[2018-05-16] MEDS: K and/or MAG REPLACEMENT MC SCH (08:00)
[2018-05-16 11:00] VITALS: BP 152/65
[2018-05-16] MEDS ORDERED: levoFLOXACIN 250mg tablet PO SCH (11:00)
[2018-05-16] MEDS ORDERED: LEVO500T2 PO (11:31)
--- NOTE | 2018-05-16 12:35 | NUR ---
Discontinued IV with canula intact, tele monitor discontinued. Educated patient and patient's spouse regarding discharge instructions, next dose for each continued home med and schedule for new medication. Pt also educated on signs and symptoms of when to return. Pt verbalized understanding and pt stated he will follow up with his primary care provider in one week. 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 Pt left with all belongings in private vehicle driven by spouse.
[2018-05-24] MEDS ORDERED: PRED20TA PO (11:21)
[2018-05-24] MEDS ORDERED: MAGN400C PO (11:22)
[2018-05-24] MEDS ORDERED: ROFL500T7 PO (11:22)
[2018-05-24] MEDS ORDERED: MONT10TA24 PO (11:22)
[2018-05-24] MEDS ORDERED: TIOT4MIS3 PO (11:22)
[2018-05-24] MEDS ORDERED: MECL-111 PO (11:22)
[2018-05-24] MEDS ORDERED: PANT-47 PO (11:22)
[2018-05-26] MEDS ORDERED: LEVO750T21 PO (12:54)
[2018-05-26] MEDS ORDERED: PRED10TA PO (12:54)
== END 2018-05-16 12:35 | disposition home or self-care (01) | DRG 190 ==
LOC: ER 09:04 → ED HOLD 12:36 → PCU 3S 17:15 → CMPBEDREQ 19:27
PROVIDERS: ADMIT Family Medicine; ATTEND Family Medicine
DX: J44.1 Chronic obstructive pulmonary disease with (acute) exacerbation (principal); E43 Unspecified severe protein-calorie malnutrition; E87.2 Acidosis; I12.9 Hypertensive chronic kidney disease with stage 1 through stage 4 chronic kidney disease, or unspecified chronic kidney disease; N18.9 Chronic kidney disease, unspecified; I48.91 Unspecified atrial fibrillation; R09.02 Hypoxemia; E87.6 Hypokalemia; D64.9 Anemia, unspecified; E78.00 Pure hypercholesterolemia, unspecified; E78.5 Hyperlipidemia, unspecified; I25.10 Atherosclerotic heart disease of native coronary artery without angina pectoris; G89.29 Other chronic pain; M54.9 Dorsalgia, unspecified; Z98.49 Cataract extraction status, unspecified eye; Z79.899 Other long term (current) drug therapy; Z79.01 Long term (current) use of anticoagulants; Z87.01 Personal history of pneumonia (recurrent); Z82.5 Family history of asthma and other chronic lower respiratory diseases; Z68.27 Body mass index [BMI] 27.0-27.9, adult
CPT/HCPCS: 36415; 71046; 80053; 81001; 83605; 83735; 84132; 84145; 84439; 84443; 84484; 85025; 87040; 87070; 93005; 93306; 93880; 94640; 94760; 96360; 97116; 97161; 97530; 99285; G0378; J0692; J1956; J2930

== ENCOUNTER 2018-05-23 10:01 | Inpatient (IN) | payer MEDICARE | END 2018-05-26 15:05 | disposition home or self-care (01) | LOC: ER 10:01 → PCU 3S 05-24 18:08 → ED HOLD 12:03 | DX: J44.1 Chronic obstructive pulmonary disease with (acute) exacerbation (principal); J18.1 Lobar pneumonia, unspecified organism; N17.9 Acute kidney failure, unspecified; J61 Pneumoconiosis due to asbestos and other mineral fibers; I12.9 Hypertensive chronic kidney disease with stage 1 through stage 4 chronic kidney disease, or unspecified chronic kidney disease; N18.9 Chronic kidney disease, unspecified ==

== ENCOUNTER 2018-06-10 16:13 | Inpatient (IN) | payer MEDICARE | END 2018-06-12 13:20 | disposition home health service (06) | LOC: ER 16:13 → SUR 3N 20:51 | DX: J96.21 Acute and chronic respiratory failure with hypoxia (principal); N17.9 Acute kidney failure, unspecified; E78.5 Hyperlipidemia, unspecified; I48.91 Unspecified atrial fibrillation; I12.9 Hypertensive chronic kidney disease with stage 1 through stage 4 chronic kidney disease, or unspecified chronic kidney disease; N18.3 Chronic kidney disease, stage 3 (moderate) ==

== ENCOUNTER 2018-06-28 09:58 | Emergency (ER) | payer MEDICARE ==
[~2018-06-28] VITALS: Ht 188 cm; Wt 92.3 kg
[~2018-06-28 09:58] MED LIST changes: -DOXY100C2 PO; +LACT1CAP26 PO; +LEVO250T58 PO; -LORA0.5T PO; +MAGN400C PO; +PANT-47 PO; -PRED10TA23 PO; +PRED20TA PO; +ROFL500T7 PO; +TIOT4MIS3 PO; -ZAR2.5T PO
[2018-06-28 12:06] VITALS: BP 137/70
[2018-06-28] MEDS ORDERED: methylPREDNISolone sod succ 125mg/2ml vial IV ONE (12:15)
[2018-06-28] MEDS ORDERED: albuterol 2.5 MG/3 ML nebule NEB ONE (12:15)
== END 2018-06-28 13:50 | disposition home or self-care (01) ==
LOC: ER 09:59
DX: J44.1 Chronic obstructive pulmonary disease with (acute) exacerbation (principal); I48.91 Unspecified atrial fibrillation; E78.00 Pure hypercholesterolemia, unspecified; I10 Essential (primary) hypertension; G89.29 Other chronic pain; I99.9 Unspecified disorder of circulatory system; Z79.899 Other long term (current) drug therapy
CPT/HCPCS: 71045; 94640; 94760; 96374; 99283; J2930

== ENCOUNTER 2018-07-06 02:04 | Inpatient (IN) | payer MEDICARE ==
[~2018-07-06] VITALS: Ht 188 cm; Wt 77.3 kg
[2018-07-06] MEDS ORDERED: normal saline 1000ML IV soln IVB ONE (02:05)
[2018-07-06] MEDS ORDERED: levoFLOXACIN-Levaquin 750MG/D5 150 ML IV STA (02:05)
[2018-07-06] MEDS ORDERED: albuterol 2.5 MG/3 ML nebule CONTNEB PRN (02:05)
[2018-07-06] MEDS ORDERED: methylPREDNISolone sod succ 125mg/2ml vial IV ONE (02:05)
[2018-07-06] MEDS ORDERED: LORazepam 2 mg/ml vial IV ONE ×3 (02:15→02:45)
[2018-07-06 02:30] LABS: ABG BASE EXCESS -14.4 mmol/L (-2.0-3.0); ABG HCO3 12.7 mmol/L (22.0-26.0); ABG OXYGEN SATURATION 97.9 % (95-98); ABG PCO2 (T) 33.3 mmHg (35.0-48.0); ABG PH (T) 7.196 (7.350-7.450); ABG PO2 (T) 135.8 mmHg (83-108); FCOHb 0.2 % (0.5-1.5); FMetHb 0.2 % (0.3-1.12); FO2Hb 97.5 % (94-100); PATIENT TEMPERATURE 36.6; RESPIRATORY RATE 18 b/min; RESPIRATORY RATE (OBSERVED) 40 b/min; TOTAL HEMOGLOBIN 12.3 G/dl (14.0-18.0)
[2018-07-06 02:34] LABS: ALANINE AMINOTRANSFERASE 24 U/L (12-78); ALBUMIN 2.3 G/DL (3.4-5.0); ALBUMIN/GLOBULIN RATIO 0.5 (1.1-1.5); ALKALINE PHOSPHATASE 112 IU/L (46-116); ANION GAP 21 (8-16); ASPARTATE AMINO TRANSFERASE 18 U/L (10-37); BILIRUBIN,TOTAL 0.4 MG/DL (0.1-1.0); BLOOD UREA NITROGEN 37 MG/DL (7-18); BUN/CREATININE RATIO 20.8 (5.4-32.0); CALCIUM 9.5 MG/DL (8.5-10.1); CHLORIDE 104 MMOL/L (99-107); CREATININE 1.78 MG/DL (0.60-1.10); GLUCOSE 180 MG/DL (70-104); POTASSIUM 3.6 MMOL/L (3.5-5.1); SODIUM 144 MMOL/L (135-145); TOTAL PROTEIN 6.8 G/DL (6.4-8.2); eGFR 38 ML/MIN
[2018-07-06 02:40] LABS: PARTIAL THROMBOPLASTIN TIME < 20 SECONDS (22-32); PROTHROMBIN TIME 10.2 SECONDS (9.0-12.0)
[2018-07-06 02:42] LABS: TROPONIN I < 0.04 NG/ML (0.0-0.05)
[2018-07-06] MEDS ORDERED: amiodarone 50MG/ML inj IV ONE (02:45)
[2018-07-06 02:47] LABS: BASOPHILS # (AUTO) 0.1 X10'3 (0-0.2); BASOPHILS % (AUTO) 0.4 % (0-1); EOSINOPHILS # (AUTO) 0.2 X10'3 (0-0.9); HEMATOCRIT 35.9 % (42.0-52.0); HEMOGLOBIN 11.2 g/dl (14.0-17.9); LYMPHOCYTES # (AUTO) 0.6 X10'3 (1.1-4.8); LYMPHOCYTES % (AUTO) 4.1 % (21-51); MEAN CORPUSCULAR HEMOGLOBIN 25.8 PG (27.0-31.0); MEAN CORPUSCULAR HGB CONC 31.2 g/dL (33.0-36.5); MEAN CORPUSCULAR VOLUME 82.6 FL (78-98); MEAN PLATELET VOLUME 8.3 FL (7.4-10.4); MONOCYTES # (AUTO) 0.1 X10'3 (0-0.9); MONOCYTES % (AUTO) 0.5 % (2-12); NEUTROPHILS # (AUTO) 14.8 X10'3 (1.8-7.7); PLATELET COUNT 474 X10'3 (140-440); RED BLOOD COUNT 4.35 X10'6 (4.70-6.10); RED CELL DISTRIBUTION WIDTH 18.7 % (11.5-14.5); WHITE BLOOD COUNT 15.7 X10'3 (4.5-11.0)
[2018-07-06] MEDS ORDERED: NORMAL SALINE IV ONE ×2 (02:50→02:59)
[2018-07-06] MEDS ORDERED: KETAMINE IV ONE ×2 (02:50→02:59)
[2018-07-06] MEDS ORDERED: amiodarone 150mg/dext, iso-os 100 ML IV ONE (03:00)
[2018-07-06] MEDS ORDERED: iohexol 350MG/ML 100ml bottle IV ONE (03:13)
[2018-07-06] MEDS ORDERED: normal saline 1000ml 1,000 ML IV ONE (03:15)
[2018-07-06 03:19] LABS: PLATELET ESTIMATE INCREASED; TOTAL CELLS COUNTED 100
[2018-07-06 03:20] LABS: ANISOCYTOSIS 2+; POIKILOCYTOSIS FEW; POLYCHROMASIA FEW
[2018-07-06] MEDS ORDERED: normal saline 500ml IV soln 1,000 ML IV ONE (03:30)
[2018-07-06] MEDS ORDERED: fentaNYL/PF 50MCG/1 ML 2ML syringe IV ONE ×2 (03:35→04:20)
[2018-07-06] MEDS ORDERED: morphine 4 MG/ML inj SYRINge IV ONE (04:40)
[2018-07-06] MEDS ORDERED: piperacillin/tazo 4.5gm/100ml 100 ML IV ONE (04:42)
[2018-07-06 05:00] LABS: ABG BASE EXCESS -8.9 mmol/L (-2.0-3.0); ABG HCO3 16.9 mmol/L (22.0-26.0); ABG OXYGEN SATURATION 96.4 % (95-98); ABG PCO2 (T) 34.9 mmHg (35.0-48.0); ABG PH (T) 7.299 (7.350-7.450); ABG PO2 (T) 97.9 mmHg (83-108); FCOHb 0.1 % (0.5-1.5); FMetHb 0.2 % (0.3-1.12); FO2Hb 96.1 % (94-100); PATIENT TEMPERATURE 36.4; RESPIRATORY RATE 18 b/min; RESPIRATORY RATE (OBSERVED) 24 b/min; TOTAL HEMOGLOBIN 10.8 G/dl (14.0-18.0)
[2018-07-06] MEDS ORDERED: midazolam 100mg in NS 100ml 100 ML IV ONE (06:00)
--- NOTE | 2018-07-06 06:18 | NUR ---
vERSED DRIP STARTED @ 1MG/HR.
[2018-07-06] MEDS ORDERED: HYDROmorphone 1 mg/ml syringe IV ONE (07:00)
[2018-07-06] MEDS ORDERED: HYDROmorphone 1 mg/ml syringe IV PRN ×2 (08:00→10:25)
[2018-07-06] MEDS ORDERED: ondansetron/PF 4mg/2ml inj IV PRN (08:00)
[2018-07-06] MEDS ORDERED: acetaminophen 325mg tablet PO PRN (08:00)
[2018-07-06] MEDS ORDERED: mag hydrox/Alum hydrox/simeth 30ml oral suspension PO PRN (08:00)
[2018-07-06] MEDS ORDERED: HYDROmorphone inj. 0.5 MG/0.5 ML DISP.SYRIN IV PRN (08:00)
[2018-07-06] MEDS ORDERED: LORazepam 2 mg/ml vial IV PRN (09:15)
[2018-07-06 09:45] VITALS: BP 131/53
[2018-07-06 10:36] VITALS: BP 98/45
--- NOTE | 2018-07-06 16:05 | NUR ---
I noticed patient chest not moving and so listened to heart beat and respirations and didn't here anything so Jose Keller RN ran rythym strip and patient in asystole so pronounced time of at 1605. Family present at bedside with patient Astrid Ying. I called Dr. Tipton and he is aware. I later called him in regards to patient family wishes of an autopsy, which the could not ingris. I made many calls and found out that patient family would have to hire a private DrKristina to perform autopsy if they wish, and that it could be performed at [facility]. Patient wanted autopsy because of possible asbestos.
--- NOTE | 2018-07-06 16:20 | NUR ---
[facility] called and reported.
--- NOTE | 2018-07-06 17:07 | NUR ---
Noted that patient's current code status is DNR with comfort care. Will continue to follow per protocol. Recommendations: 1) Bowel care as needed per comfort care measures Addendum: 07/06/18 at [address] Amended: Links added.
--- NOTE | 2018-07-06 18:05 | NUR ---
Mariya tucker on the way to pick patient up, family aware.
== END 2018-07-06 18:50 | disposition expired | DRG 871 ==
LOC: ER 02:04 → ED HOLD 07:57 → ORTHO 4S 09:35
PROVIDERS: ADMIT Family Medicine; ATTEND Family Medicine
PROC: 5A09357 Assistance with Respiratory Ventilation, Less than 24 Consecutive Hours, Continuous Positive Airway Pressure (ICD-10-PCS; principal; 2018-07-06)
PROC: B32T1ZZ Computerized Tomography (CT Scan) of Left Pulmonary Artery using Low Osmolar Contrast (ICD-10-PCS; 2018-07-06)
PROC: B3201ZZ Computerized Tomography (CT Scan) of Thoracic Aorta using Low Osmolar Contrast (ICD-10-PCS; 2018-07-06)
PROC: B32S1ZZ Computerized Tomography (CT Scan) of Right Pulmonary Artery using Low Osmolar Contrast (ICD-10-PCS; 2018-07-06)
PROC: BW211ZZ Computerized Tomography (CT Scan) of Abdomen and Pelvis using Low Osmolar Contrast (ICD-10-PCS; 2018-07-06)
DX: A41.9 Sepsis, unspecified organism (principal); J18.9 Pneumonia, unspecified organism; J96.20 Acute and chronic respiratory failure, unspecified whether with hypoxia or hypercapnia; E87.2 Acidosis; J44.1 Chronic obstructive pulmonary disease with (acute) exacerbation; J44.0 Chronic obstructive pulmonary disease with (acute) lower respiratory infection; K55.9 Vascular disorder of intestine, unspecified; I73.9 Peripheral vascular disease, unspecified; I48.91 Unspecified atrial fibrillation; I25.10 Atherosclerotic heart disease of native coronary artery without angina pectoris; I12.9 Hypertensive chronic kidney disease with stage 1 through stage 4 chronic kidney disease, or unspecified chronic kidney disease; Z66 Do not resuscitate; E78.00 Pure hypercholesterolemia, unspecified; N18.9 Chronic kidney disease, unspecified; R65.20 Severe sepsis without septic shock; Z51.5 Encounter for palliative care; G89.29 Other chronic pain; Z79.52 Long term (current) use of systemic steroids
CPT/HCPCS: 32551; 36415; 36600; 71045; 71275; 74177; 80053; 82803; 82948; 83605; 83880; 84484; 85018; 85025; 85610; 85730; 87040; 93005; 94660; 94760; 96365; 96375; 99291; 99292; G0378; J0282; J1170; J1956; J2060; J2250; J2270; J2543; J2930; J3010; J7030; Q9967